=== PATIENT | male | born 1935 | race Caucasian/White ===

== ENCOUNTER 2020-12-02 06:57 | Outpatient (CLI) | payer MEDICARE, BC, SELFPAY ==
[2020-12-02 08:04] LABS: Alanine Aminotransferase 20 U/L (4-50); Albumin Level 4.1 g/dL (3.5-5.1); Alkaline Phosphatase 63 U/L (38-126); Anion Gap 6 mmol/L (8-16); Aspartate Amino Transferase 36 U/L (17-59); Bilirubin,Total 1.3 mg/dL (0.2-1.3); Blood Urea Nitrogen 19 mg/dL (9-20); Calcium 9.3 mg/dL (8.4-10.2); Carbon Dioxide 29 mmol/L (22-30); Chloride 107 mmol/L (98-107); Cholesterol 111 mg/dL (0-200); Estimated Glomerular Filt Rate 53; Glucose 117 mg/dL (75-110); HDL Direct 33 mg/dL; Potassium 4.1 mmol/L (3.4-5.0); Sodium 142 mmol/L (137-145); Triglycerides 91 mg/dL (<150)
[2020-12-02 08:16] LABS: LDL Cholesterol Direct 65 mg/dL
== END 2020-12-02 06:58 | disposition home or self-care (01) ==
PROVIDERS: PCP Emergency Medicine; Visit Provider Emergency Medicine
DX: E78.5 Hyperlipidemia, unspecified (principal)
CPT/HCPCS: 36415; 80053; 80061

== ENCOUNTER 2020-12-03 08:06 | Outpatient (CLI) | payer MEDICARE, BC, SELFPAY ==
--- NOTE | ~2020-12-03 | XR_ITS ---
XR lumbar spine 2-3V DATE: 12/03/2020 08:25 INDICATION: Low back pain. No injury. TECHNIQUE: AP, lateral, coned lateral lumbosacral views COMPARISON: None FINDINGS: There is mild dextroscoliosis of the lower thoracic and lumbar spine. Diffuse osteopenia. There is severe degenerative disc disease with very prominent spurring at L2-3 as well as severe dege nerative disc disease at L3-4. There is associated minimal retrolisthesis at L2-3. There is mild degenerative disc disease at L1-2 and moderate degenerative disc disease at L4-5 and L5 -S1. No fracture or bone destruction is evident. Included lower thoracic and lumbar pedicles are intact. The sacroiliac joints are normal. Calcifications overlie the lower pole of each kidney suggesting possible bilateral nephrolithiasis. Surgical clips, right upper quadrant, consistent with cholecystectomy. IMPRESSION: Diffuse osteopenia Mild thoracolumbar dextro scoliosis Multilevel degenerative disc disease of the lumbar spine Reviewed, dictated and finalized at location A.
== END 2020-12-03 08:07 | disposition home or self-care (01) ==
PROVIDERS: PCP Emergency Medicine; Visit Provider Emergency Medicine
DX: M41.9 Scoliosis, unspecified (principal); M47.817 Spondylosis without myelopathy or radiculopathy, lumbosacral region
CPT/HCPCS: 72100

== ENCOUNTER 2021-01-05 07:15 | Outpatient (CLI) | payer MEDICARE, BC, SELFPAY ==
[2021-01-05 08:01] LABS: Cholesterol 107 mg/dL (0-200); HDL Direct 39 mg/dL; Triglycerides 70 mg/dL (<150)
[2021-01-05 08:10] LABS: LDL Cholesterol Direct 51 mg/dL
[2021-01-08 10:43] LABS: Vitamin D 1,25 (OH)2 Total 63 pg/mL (18-72); Vitamin D2 1,25 (OH)2 <8 pg/mL; Vitamin D3 1,25 (OH)2 63 pg/mL
== END 2021-01-05 07:16 | disposition home or self-care (01) ==
PROVIDERS: PCP Emergency Medicine; Visit Provider Emergency Medicine
DX: M85.88 Other specified disorders of bone density and structure, other site (principal); E78.5 Hyperlipidemia, unspecified
CPT/HCPCS: 36415; 80061; 82652

== ENCOUNTER 2021-07-28 07:17 | Outpatient (CLI) | payer MEDICARE, BC, SELFPAY ==
--- NOTE | ~2021-07-28 | XR_ITS ---
EXAMINATION: XR hip LT 2V w AP pelvis DATE: 07/28/2021 07:39 INDICATION: Left hip pain TECHNIQUE: Anteroposterior view of the pelvis and anteroposterior and frog-leg lateral views of the l eft hip were obtained. COMPARISON: None. FINDINGS: Mild lower lumbar levocurvature with moderate to severe spondylosis. Alignment is otherwise normal. N o fracture or suspected avascular necrosis. 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 Mil d osteoarthritis at the right sacroiliac and bilateral hip joints. Several phleboliths in the pelvis. Surgical clips at the proximal left thigh. IMPRESSION: 1. Degenerative skeletal changes as detailed above including mild left hip osteoarthritis. No acute o sseous abnormality. Reviewed, dictated and finalized at location A. 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 Degenerative skeletal changes as detailed above including mild left hip oste oarthritis. No acute osseous abnormality.
== END 2021-07-28 07:18 | disposition home or self-care (01) ==
PROVIDERS: PCP Emergency Medicine; Visit Provider Emergency Medicine
DX: M47.816 Spondylosis without myelopathy or radiculopathy, lumbar region (principal); M47.818 Spondylosis without myelopathy or radiculopathy, sacral and sacrococcygeal region; M16.0 Bilateral primary osteoarthritis of hip
CPT/HCPCS: 73502

== ENCOUNTER 2022-01-28 02:10 | Day surgery (SDC) | payer MEDICARE, BC, SELFPAY ==
[2022-01-20 11:31] VITALS: BMI 29.5
--- NOTE | 2022-01-27 15:56 | WPDANESEPPF ---
Anes - Initial Pre Proc Eval Procedure: Operation Date: 01/28/22 13:30 Proposed Procedures p Esophagogastroduodenoscopy - Ortiz Haas MD Date/Time: 01/27/22 15:56 Surgeon: Ortiz Haas MD Pre Op Diagnosis: melena, GI bleed Patient Data Age: 86 Gender: M Height: 1.63 m Weight: 78 kg Allergies Allergy/AdvReac Type Severity Reaction Status Date / Time No Known Allergies Allergy Verified 01/28/22 12:20 Home Medications Medication Instructions Recorded Confirmed Type [id number] 200 mcg-vit K 15 1 tablet PO DAILY 06/27/19 01/28/22 History mcg-lycope 150 lpi-aawbwn-ehtv tablet (Ocuvite Eye Plus Multi) aspirin 81 mg tablet,delayed 81 mg PO .COMPLEX 09/24/19 01/28/22 History release metoprolol succinate 25 mg 25 mg PO HS 04/08/20 01/28/22 History tablet,extended release 24 hr tadalafil 20 mg tablet (Cialis) 20 mg PO DAILY PRN sexual activity 06/10/20 01/28/22 Rx #30 tabs cholecalciferol (vitamin D3) 125 125 mcg PO DAILY #90 caps 12/05/20 01/28/22 Rx mcg (5,000 unit) capsule pantoprazole 40 mg tablet,delayed 40 mg PO QHS 6 weeks #42 tabs 01/19/22 01/28/22 Rx release (Protonix) atorvastatin 10 mg tablet 10 mg PO HS 01/20/22 01/28/22 History doxazosin 2 mg tablet 2 mg PO HS 01/20/22 01/28/22 History fenofibric acid (choline) 135 mg 135 mg PO HS 01/20/22 01/28/22 History capsule,delayed release magnesium 250 mg tablet 250 mg PO DAILY 01/20/22 01/28/22 History tamsulosin 0.4 mg capsule 0.4 mg PO QPM 01/20/22 01/28/22 History Patient hx anesthesia problems: none Family hx anesthesia problems: none Results Review: All pre-operative results and documents have been reviewed as part of the pre-operative evaluation. [facility] Past Medical History Medical History Atherosclerotic heart disease of [place] coronary artery with angina pectoris Benign prostatic hyperplasia with nocturia Body mass index [BMI] 30.0-30.9, adult (09/15/17) Body mass index [BMI] 31.0-31.9, adult (04/28/17) Body mass index [BMI] 32.0-32.9, adult (08/21/15) Complete tear of right rotator cuff Enlarged prostate without lower urinary tract symptoms (luts) Gastro-esophageal reflux disease without esophagitis Hematuria Hyperlipidemia Hypertension Nocturia Right arm pain Right shoulder pain Sinusitis chronic, frontal Tear of biceps tendon Tear of right rotator cuff Vitamin D deficiency Surgical History Surgical History S/P CABG x 5 Family History Family History Mother Family history of malignant neoplasm Sibling Family history of congenital heart disease Family history of heart disease in male family member before age 55 Father Family history of chronic obstructive pulmonary disease Family history of emphysema Other Diabetes mellitus Family history of cardiovascular disease Hypertension Social History Social History Smoking status: Never smoker Alcohol intake: never Substance use: never Substance use type: does not use Living arrangements: with family Spiritual care concerns: No Anes - Eval Final PreProcedure Day of Procedure 01/27/22 15:56 Patient weight: overweight Heart: regular rate and rhythm Lungs: clear to auscultation Airway: Mallampati scale class II Neurological: alert and oriented Last oral intake: >/= 8 hours ASA classification: III Emergent: no Anesthetic plan: proceed Anesthesia type and monitoring: general GIVS and standard monitoring Results Review: All pre-operative results and documents have been reviewed as part of the pre-operative evaluation. Informed Consent: The patient's anesthetic plan and its attendant risks and benefits were discussed with the patient/family/POA. Questions were solicited and answers provided to t
[2022-01-28 12:21] VITALS: BP 168/87; PULSE 75; RESP 18; TEMP 36.4; O2SAT 99
[2022-01-28] MEDS: LACTATED RINGERS 1,000 ML 150 ML IV CONT (12:26)
--- NOTE | 2022-01-28 12:51 | PM.IMHP ---
H&P: HPI History of Present Illness Date/Time: 01/28/22 12:51 Chief Complaint: Black stools. Narrative: This is an 86-year-old white male patient who complains of black stools. He states this has occurred over the last several weeks but stools are somewhat less dark over the last 1 week. He does have vague left lower quadrant abdominal pain that improved after good bowel movement recently. Because of dark black stools a blood count was obtained found to be normal. Patient was empirically placed on pantoprazole. And referred for colonoscopy. Patient denies any stool testing no Hemoccult recently done. Patient denies taking any iron or Pepto-Bismol recently. He is concerned over possibility of bleeding. 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 Family history is noncontributory. Review of Systems Review of Systems: Review is systems noncontributory. [facility] Past Medical History Medical History Atherosclerotic heart disease of [place] coronary artery with angina pectoris Benign prostatic hyperplasia with nocturia Body mass index [BMI] 30.0-30.9, adult (09/15/17) Body mass index [BMI] 31.0-31.9, adult (04/28/17) Body mass index [BMI] 32.0-32.9, adult (08/21/15) Complete tear of right rotator cuff Enlarged prostate without lower urinary tract symptoms (luts) Gastro-esophageal reflux disease without esophagitis Hematuria Hyperlipidemia Hypertension Nocturia Right arm pain Right shoulder pain Sinusitis chronic, frontal Tear of biceps tendon Tear of right rotator cuff Vitamin D deficiency Surgical History Surgical History S/P CABG x 5 Family History Family History Mother Family history of malignant neoplasm Sibling Family history of congenital heart disease Family history of heart disease in male family member before age 55 Father Family history of chronic obstructive pulmonary disease Family history of emphysema Other Diabetes mellitus Family history of cardiovascular disease Hypertension Social History Social History Smoking status: Never smoker Alcohol intake: never Substance use: never Substance use type: does not use Living arrangements: with family Spiritual care concerns: No Meds Home Medications and Allergies Home Medications Medication Instructions Recorded Confirmed Type kyqtuqka-smn-TS 200 mcg-vit K 15 1 tablet PO DAILY 06/27/19 01/28/22 History mcg-lycope 150 jby-tauuxr-hqsl tablet (Ocuvite Eye Plus Multi) aspirin 81 mg tablet,delayed 81 mg PO .COMPLEX 09/24/19 01/28/22 History release metoprolol succinate 25 mg 25 mg PO HS 04/08/20 01/28/22 History tablet,extended release 24 hr tadalafil 20 mg tablet (Cialis) 20 mg PO DAILY PRN sexual activity 06/10/20 01/28/22 Rx #30 tabs cholecalciferol (vitamin D3) 125 125 mcg PO DAILY #90 caps 12/05/20 01/28/22 Rx mcg (5,000 unit) capsule pantoprazole 40 mg tablet,delayed 40 mg PO QHS 6 weeks #42 tabs 01/19/22 01/28/22 Rx release (Protonix) atorvastatin 10 mg tablet 10 mg PO HS 01/20/22 01/28/22 History doxazosin 2 mg tablet 2 mg PO HS 01/20/22 01/28/22 History fenofibric acid (choline) 135 mg 135 mg PO HS 01/20/22 01/28/22 History capsule,delayed release magnesium 250 mg tablet 250 mg PO DAILY 01/20/22 01/28/22 History tamsulosin 0.4 mg capsule 0.4 mg PO QPM 01/20/22 01/28/22 History Allergies Allergy/AdvReac Type Severity Reaction Status Date / Time No Known Allergies Allergy Verified 01/28/22 12:20 Vital Signs Vital Signs - 24 hr 01/28/22 12:21 Temperature 97.5 F L Pulse Rate 75 Respiratory Rate 18 Blood Pressure 168/87 H Pulse Oximetry 99 Oxygen Delivery Room Air
[2022-01-28 13:11] VITALS: BP 101/57; PULSE 60; RESP 25; O2SAT 95
[2022-01-28 13:21] VITALS: BP 100/61; PULSE 61; RESP 18; O2SAT 96
[2022-01-28 13:31] VITALS: BP 119/72; PULSE 62; RESP 17; O2SAT 99
== END 2022-01-28 13:45 | disposition home or self-care (01) ==
PROVIDERS: PCP Emergency Medicine; Visit Provider Internal Medicine Gastroenterology
PROC: 0DJ08ZZ Inspection of Upper Intestinal Tract, Via Natural or Artificial Opening Endoscopic (ICD-10-PCS; CPT 43235; principal; 2022-01-28 13:30)
DX: K92.1 Melena (principal); Q39.4 Esophageal web; K21.9 Gastro-esophageal reflux disease without esophagitis; I25.10 Atherosclerotic heart disease of native coronary artery without angina pectoris; N40.1 Benign prostatic hyperplasia with lower urinary tract symptoms; R35.1 Nocturia; I10 Essential (primary) hypertension; E78.5 Hyperlipidemia, unspecified; E55.9 Vitamin D deficiency, unspecified; Z79.82 Long term (current) use of aspirin; Z95.1 Presence of aortocoronary bypass graft; Z86.010 Personal history of colon polyps; Z85.048 Personal history of other malignant neoplasm of rectum, rectosigmoid junction, and anus
CPT/HCPCS: 43450; 43235; J2704; J7120

== ENCOUNTER 2022-05-10 17:59 | Inpatient (IN) | payer MEDICARE, BC, SELFPAY ==
--- NOTE | ~2022-05-10 | CT_ITS ---
EXAMINATION: CT abdomen pelvis wo con DATE: 05/10/2022 19:00 INDICATION: Nephrolithiasis presenting with inability to urinate TECHNIQUE: Computed tomography (CT) of the abdomen and pelvis was performed without intravenous contr ast. Automated exposure control and iterative reconstruction technique were employed. The dose-length product was 432.04 mGy-cm. COMPARISON: 05/26/2015 FINDINGS: Lung bases are clear. Heart size normal. Atherosclerotic coronary artery calcific lesion. No pericard ial or pleural effusion. Small sliding-type hiatal hernia. Cholecystectomy clips the gallbladder malou a. Multiple splenic calcifications consistent with old granulomatous disease. Liver and bilateral adr enal glands are normal. Dystrophic calcifications at the head of the pancreas consistent with sequela of chronic pancreatitis. A few small low-attenuation renal cysts. 1.8 cm stone at the right renal pe lvis and 8 mm stone in a lower pole calyx of the right kidney. No hydronephrosis. No ureteral stones. Prostatomegaly measuring 6.4 x 6.2 cm which impresses upon the base of the otherwise normal bladder. There are few phleboliths in the deep pelvis. Bowels including the appendix are normal. No free intr aperitoneal gas or fluid. No pathologically enlarged abdominal or pelvic lymphadenopathy.. There is c alcified atherosclerosis of the aorta and many of the other arteries. Mild S-shaped scoliosis and sev ere spondylosis in the lumbar and lower thoracic spine. IMPRESSION: 1. Nonobstructing right nephrolithiasis. 2. Marked prostatomegaly. Reviewed, dictated and finalized at location A.
[2022-05-10 18:35] VITALS: BP 174/96; PULSE 132; RESP 18; TEMP 37.7; O2SAT 97
[2022-05-10 19:01] LABS: Basophils Percent Auto 0.2 % (0.2-1.2); Eosinophils Absolute Auto 0.1 K/mm3 (0-0.3); Eosinophils Percent Auto 0.7 % (0-4.4); Hemoglobin 14.5 g/dL (14.0-18.0); Immature Granulocyte Absolute 0.03 K/mm3 (0.00-0.031); Immature Granulocyte Percent A 0.2 % (0-0.5); Immature Platelet Fraction Pct 5.2 % (0.9-11.2); Lymphocytes Absolute Auto 1.12 K/mm3 (0.9-3.2); Lymphocytes Percent Auto 9.3 % (18.3-44.2); Mean Corpuscular HGB Conc 33.7 g/dl (32-36); Mean Corpuscular Hemoglobin 30.9 pg (26-34); Mean Corpuscular Volume 91.7 fl (80-100); Mean Platelet Volume 11.1 fl (7.4-10.4); Monocytes Absolute Auto 0.5 K/mm3 (0.1-0.6); Monocytes Percent Auto 4.1 % (2.6-8.5); Neutrophils Absolute Auto 10.3 K/mm3 (1.3-6.7); Neutrophils Percent Auto 85.5 % (45.5-73.1); Platelet Count Result 121 k/mm3 (150-375); Red Blood Count 4.69 M/mm3 (4.6-6.20); Red Cell Distribution Width 12.3 % (11.5-14.5)
--- NOTE | 2022-05-10 19:08 | ECG_ITS ---
Measurements Intervals [place] Rate: 128 P: -22 DE: 141 QRS: -35 QRSD: 121 T: 65 QT: 328 QTc: 480 Interpretive Statements ATRIAL FLUTTER/TACHYCARDIA WITH RAPID VENTRICULAR RESPONSE LEFT AXIS DEVIATION INCOMPLETE LEFT BUNDLE BRANCH BLOCK POOR R WAVE PROGRESSION, ANTERIOR LEADS BORDERLINE ST-T WAVE ABNORMALITY- HIGH LATERAL LEADS BASELINE ARTIFACT- I, II, AVR, AVL ABNORMAL ECG NO PREVIOUS ECG AVAILABLE FOR COMPARISON Electronically Signed On 05-10-2022 19:53:56 CDT by Jean Mcdermott D.O.
[2022-05-10 19:12] LABS: Alanine Aminotransferase 26 U/L (6-50); Albumin Level 4.5 g/dL (3.5-5.1); Alkaline Phosphatase 71 U/L (38-126); Anion Gap 14 mmol/L (8-16); Aspartate Amino Transferase 43 U/L (17-59); Bilirubin,Total 1.1 mg/dL (0.2-1.3); Blood Urea Nitrogen 19 mg/dL (9-20); Calcium 9.4 mg/dL (8.4-10.2); Carbon Dioxide 24 mmol/L (22-30); Chloride 105 mmol/L (98-107); Estimated CRCL calculation 35 ml/min; Estimated Glomerular Filt Rate 52; Glucose 108 mg/dL (65-110); Potassium 3.8 mmol/L (3.4-5.0); Sodium 143 mmol/L (137-145)
[2022-05-10 19:13] LABS: Lactic Acid Reflex 2.1 mmol/L (0.7-2.0)
--- NOTE | 2022-05-10 19:17 | ED.GENADULT ---
HPI - General Adult General Chief complaint: Urogenital-Male Stated complaint: Blood In Urine Time Seen by Provider: 05/10/22 18:51 History of Present Illness HPI narrative: 87-year-old male with remote history of kidney stones presented emerged department for evaluation of lower back pain, tremors and blood in his urine. Patient states few days ago he was having some lower back pain. Patient states today at approximately noon he first noticed he had some blood in his urine. Patient denied any associated pain with this. Patient states that at about 630 this evening he had a another episode of hematuria and also began having some tremors. Patient denies any prior history of UT or CVA. Patient does have a remote history of kidney stones. Related Data Home Medications Medication Instructions Recorded Confirmed fiplfjww-sfo-MJ 200 mcg-vit K 15 1 tablet PO DAILY 06/27/19 05/10/22 mcg-lycope 150 bti-cmcuru-yffc tablet (Ocuvite Eye Plus Multi) aspirin 81 mg tablet,delayed 81 mg PO 1XD 09/24/19 05/10/22 release metoprolol succinate 25 mg 25 mg PO HS 04/08/20 05/10/22 tablet,extended release 24 hr atorvastatin 10 mg tablet 10 mg PO HS 01/20/22 05/10/22 doxazosin 2 mg tablet 2 mg PO HS 01/20/22 05/10/22 magnesium 250 mg tablet 250 mg PO DAILY 01/20/22 05/10/22 tamsulosin 0.4 mg capsule 0.4 mg PO QPM 01/20/22 05/10/22 Allergies Allergy/AdvReac Type Severity Reaction Status Date / Time No Known Allergies Allergy Verified 05/10/22 19:36 Review of Systems Review of Systems: CONSTITUTIONAL: Chills and tremor EYES: Denies visual changes, redness, or discharge. ENT: Denies rhinorrhea, congestion, sore throat, or otalgia. CARDIOVASCULAR: Denies chest pain, palpitations, or edema. RESPIRATORY: Denies cough or dyspnea. GASTROINTESTINAL: Denies abdominal pain, nausea, vomiting, or diarrhea. GENITOURINARY: Hematuria SKIN: Denies rash or itching. MUSCULOSKELETAL: Denies back pain, joint pain, or myalgia. NEUROLOGIC: Denies headache, numbness, or weakness. [facility] Past Medical History Medical History (Updated 05/11/22 @ 00:56 by Alma Cowan MD) Atherosclerotic heart disease of [place] coronary artery with angina pectoris Benign prostatic hyperplasia with nocturia Body mass index [BMI] 30.0-30.9, adult (09/15/17) Body mass index [BMI] 31.0-31.9, adult (04/28/17) Body mass index [BMI] 32.0-32.9, adult (08/21/15) Complete tear of right rotator cuff Enlarged prostate without lower urinary tract symptoms (luts) Gastro-esophageal reflux disease without esophagitis Hematuria Hyperlipidemia Hypertension Nocturia Right arm pain Right shoulder pain Sinusitis chronic, frontal Tear of biceps tendon Tear of right rotator cuff Vitamin D deficiency Surgical History Surgical History S/P CABG x 5 Family History Family History Mother Family history of malignant neoplasm Sibling Family history of congenital heart disease Family history of heart disease in male family member before age 55 Father Family history of chronic obstructive pulmonary disease Family history of emphysema Other Diabetes mellitus Family history of cardiovascular disease Hypertension Social History Social History Smoking status: Never smoker Alcohol intake: never Substance use: never Substance use type: does not use Spiritual care concerns: No Exam Narrative: APPEARANCE: Well appearing, no pain, no distress, well-nourished. HEAD: normocephalic, atraumatic. EYES: PERRLA/EOMI, conjunctivae clear. NOSE: Normal no drainage THROAT: Pharynx clear, no exudate. NECK: Supple. No adenopathy, no masses. RESPIRATORY: Airway patent, respirations nonlabored. Clear to auscultation bilaterally, no rales, rhonchi, wheezing. CARDIOVASCULAR: Regular rate and rhythm without murmu
[2022-05-10 19:31] LABS: Appearance Urine Slightly Cloudy (Clear); Bilirubin Urine Negative (Negative); Blood Urine 3+ (Negative); Color Urine Yellow (Yellow); Glucose Urine UA Negative (Negative); Ketones Urine Negative (Negative); Leukocyte Esterase Ur 2+ LEU/UL (Negative); Nitrate Urine Negative (Negative); Protein Urine Trace mg/dL (Negative); Urobilinogen Urine 0.2 mg/dL (<2.0)
[2022-05-10 19:41] LABS: Bacteria Urine Trace /hpf; Mucus Urine Rare /lpf; RBC Urine >75 /hpf (0-2); Squamous Epithelial Cell Urine Rare /hpf (Few); WBC Urine >75 /hpf
[2022-05-10 19:44] LABS: Add Urine Microscopic? YES
[2022-05-10 19:49] VITALS: BP 126/69; PULSE 126; RESP 22; TEMP 39.1; O2SAT 94
[2022-05-10] MEDS: SODIUM CHLORIDE 0.9% IV 1,000 ML 999 ML IV CONT (20:30)
[2022-05-10 20:34] VITALS: BP 105/60; PULSE 126; RESP 23; TEMP 38.9; O2SAT 94
[2022-05-10 20:45] LABS: INR 1.3; Prothrombin Time 15.6 Seconds (11.1-14.7)
[2022-05-10 20:46] VITALS: BP 96/62; RESP 20; O2SAT 93
[2022-05-10 20:51] LABS: Partial Thromboplastin Time < 20.0 SECONDS (22.3-36.8)
--- NOTE | 2022-05-10 21:00 | PM.IMHP ---
H&P: HPI History of Present Illness Date/Time: 05/10/22 21:00 Chief Complaint: dysuria Narrative: This is an 87-year-old male with past medical history significant for nephrolithiasis, benign prostatic hyperplasia, hypertension: Coronary artery disease. patient presented to the emergency room due to pain with urination frequency for the last 2 days or so also blood in the urine. Patient had chills but no fevers no night sweats has had good appetite denies any nausea, vomiting, diarrhea, no cough, no chest pain. Preliminary workup was significant for urinalysis 75+ RBCs and 75+ wbc's per high-power field. A CT of abdomen and pelvis was reported as: IMPRESSION: 1. Nonobstructing right nephrolithiasis. 2. Marked prostatomegaly. Review of Systems Review of Systems: Frequency, hematuria, pain with urination, chills. Constitutional: Constitutional: Reports chills, Denies fatigue, Denies fever(s), Denies malaise, Denies night sweats and Denies weakness Eyes: Eyes: Denies change in vision ENT: Denies dysphagia, Denies vertigo, Denies dizziness and Denies odynophagia Cardiovascular: Cardiovascular: Denies chest pain, Denies syncope, Denies irregular heart rhythm, Denies lightheadedness, Denies palpitations and Denies dyspnea on exertion Respiratory: Respiratory: Denies chest congestion, Denies cough, Denies excessive phlegm production, Denies pain on inspiration, Denies dyspnea and Denies dyspnea on exertion Gastrointestinal: Gastrointestinal: Denies abdominal pain, Denies dyspepsia, Denies heartburn, Denies diarrhea, Denies nausea and Denies vomiting Genitourinary: Genitourinary: Reports hematuria and Reports dysuria Musculoskeletal: Musculoskeletal: Denies myalgias and Denies muscle weakness Integumentary/Breasts: Skin/Breast: Denies rash Neurologic: Denies vertigo, Denies dizziness, Denies focal weakness and Denies Sensory deficit (Neuro) Psychiatric: Psychiatric: Reports no additional psychiatric complaints and Reports as per HPI Endocrine: Endocrine: Denies cold intolerance, Denies flushing, Denies heat intolerance, Denies polyphagia, Denies polydipsia and Denies palpitations Hematologic/Lymphatic: Hematologic/Lymphatic: Reports no additional hematologic/lymphatic complaints and Reports as per HPI Allergic/Immunologic: Allergic/Immunologic: Reports no additional allergic/immunologic complaints and Reports as per HPI [facility] Past Medical History Medical History (Updated 05/11/22 @ 00:56 by Alma Cowan MD) Atherosclerotic heart disease of [place] coronary artery with angina pectoris Benign prostatic hyperplasia with nocturia Body mass index [BMI] 30.0-30.9, adult (09/15/17) Body mass index [BMI] 31.0-31.9, adult (04/28/17) Body mass index [BMI] 32.0-32.9, adult (08/21/15) Complete tear of right rotator cuff Enlarged prostate without lower urinary tract symptoms (luts) Gastro-esophageal reflux disease without esophagitis Hematuria Hyperlipidemia Hypertension Nocturia Right arm pain Right shoulder pain Sinusitis chronic, frontal Tear of biceps tendon Tear of right rotator cuff Vitamin D deficiency Surgical History Surgical History S/P CABG x 5 Family History Family History Mother Family history of malignant neoplasm Sibling Family history of congenital heart disease Family history of heart disease in male family member before age 55 Father Family history of chronic obstructive pulmonary disease Family history of emphysema Other Diabetes mellitus Family history of cardiovascular disease Hypertension Social History Social History Smoking status: Never smoker Alcohol intake: never Substance use: never Substance use type: does not use Spiritual care concerns: No Meds Home Medications and Allergies Home Medic
[2022-05-10 21:01] VITALS: BP 115/64; PULSE 122; RESP 29; TEMP 38.2; O2SAT 98
[2022-05-10] MEDS: SODIUM CHLORIDE 0.9% IV 1,000 ML 125 ML IV CONT (21:31)
[2022-05-10 21:35] LABS: SARS-CoV-2 RNA PCR Negative
[2022-05-10 21:56] LABS: Reflex Lactic Acid Yes or No Add Lactic
[2022-05-10 22:32] LABS: Lactic Acid 1.5 mmol/L (0.7-2.0)
[2022-05-10 22:38] VITALS: BMI 29.8
--- NOTE | 2022-05-10 22:43 | ADMGEN ---
This patient, Trav Murrieta, was admitted to [address] [place] [address] Room 305-02. Patient/family oriented to hospital policies and general routines including ID bracelet, bed and alarms, visiting hours, pain management, procedures, bathroom and other care routines, personal items, smoking policy, room service/diet, and visiting hours. Information on how to activate the Rapid Response Team has been discussed. Patient/Family are encouraged to report perceived risks to care and to ask questions if they do not understand what they are told or what they should do.
[2022-05-11] VITALS (9 sets, daily range): BP systolic 122–132; BP diastolic 51–64; PULSE 78–101; RESP 16–19; TEMP 36.8–36.9; O2SAT 93–96
[2022-05-11] MEDS: SODIUM CHLORIDE 0.9% IV 1,000 ML 125 ML IV CONT (05:32)
[2022-05-11] MEDS: OPTI-GEN TAB 1 TABLET PO (08:28)
[2022-05-11] MEDS: ASPIRIN 81 MG ENTERIC TABLET PO (08:28)
[2022-05-11] MEDS: CHOLECALCIFEROL 1,000 UNITS TABLET 5000 UNITS PO (08:28)
[2022-05-11] MEDS: MAGNESIUM OXIDE 200 MG TABLET PO (08:29)
[2022-05-11] MEDS: MULTIVITAMINS THERAPEUTIC TAB (*BKC) 1 TABLET PO (08:29)
[2022-05-11] MEDS: FINASTERIDE 5 MG TABLET PO (08:30)
--- NOTE | 2022-05-11 10:44 | PM.IMPN ---
Progress Note: A&P Assessment and Plan (1) Acute UTI: Code(s): N39.0 - Urinary tract infection, site not specified Status: Acute Assessment and Plan: admit to regular medical floor started on Rocephin await cultures (2) BPH (benign prostatic hyperplasia): Code(s): N40.0 - Benign prostatic hyperplasia without lower urinary tract symptoms Status: Acute Assessment and Plan: continue tamsulosin will add Flomax. Ruvalcaba in currently (3) CAD (coronary artery disease): Code(s): I25.10 - Atherosclerotic heart disease of [place] coronary artery without angina pectoris Status: Acute Assessment and Plan: chest pain-free continue home meds (4) HTN (hypertension): Code(s): I10 - Essential (primary) hypertension Status: Acute Assessment and Plan: continue home meds continue to monitor (5) Gastro-esophageal reflux disease without esophagitis: Code(s): K21.9 - Gastro-esophageal reflux disease without esophagitis Status: Acute Assessment and Plan: PPI as needed Subjective Date/time seen: 05/11/22 10:44 No new complaints Exam Narrative: Patient is laying in bed Const: General: comfortable, no acute distress, well developed, alert and awake Nutritional Appearance: average body habitus Orientation/consciousness: patient oriented x3 HENMT: Head: normal to inspection, normocephalic and atraumatic Ears: hearing grossly normal bilaterally Face and sinus: normal facial exam Eyes: General: appearance normal, both eyes and all related structures Pupils: Equal, round and reactive pupils present EOM: EOMs intact bilaterally Neck: Neck: full ROM, no lymphadenopathy and no JVD Thyroid: thyroid normal Lymphatic: no lymphadenopathy noted Resp: Effort & Inspection: normal respiratory effort and able to speak in complete sentences Auscultation: clear to auscultation bilaterally Cardio: Jugular venous distension: no JVD Rate: regular rate Rhythm: regular rhythm Heart sounds: S1 normal heart sound present and S2 normal heart sound present : General: Yes deferred Skin: Rashes: no rashes Wounds: no wounds Neuro: General: patient oriented x3 and CN's II-XI intact bilaterally Cranial nerves: Yes CN's II-XII intact bilaterally and Yes Equal, round and reactive pupils present Cognition (Neuro): normal cognition Speech: normal speech Gait exam (Neuro): Normal gait present Motor exam (neuro): 5/5 motor strength present throughout Sensory Exam: No Sensory deficit (Neuro) Extrem: General: normal to inspection, full ROM, no joint enlargement and no pedal edema Objective Data Vital Signs Vital Signs: Vital Signs - 24 hr 05/10/22 18:35 05/10/22 19:49 05/10/22 20:34 Temperature 102.3 F H 102.1 F H Pulse Rate 132 H 126 H Respiratory Rate 18 22 H Blood Pressure 174/96 H 126/69 Pulse Oximetry 97 94 Oxygen Delivery 05/10/22 20:34 05/10/22 20:46 05/10/22 21:01 Temperature 102.1 F H 100.8 F H Pulse Rate 126 H 122 H Respiratory Rate 23 H 20 29 H Blood Pressure 105/60 96/62 L 115/64 Pulse Oximetry 94 93 98 Oxygen Delivery 05/10/22 18:35 05/11/22 00:00 05/11/22 04:00 Temperature 99.8 F H Pulse Rate 101 H 78 Respiratory Rate Blood Pressure Pulse Oximetry Oxygen Delivery 05/11/22 06:00 05/11/22 08:00 05/11/22 08:00 Temperature 98.2 F Pulse Rate 92 92 92 Respiratory Rate 16 16 Blood Pressure 132/64 Pulse Oximetry 96 96 Oxygen Delivery Room Air Intake/Output Intake/Output: Intake & Output 05/08/22 05/09/22 05/10/22 05/11/22 23:59 23:59 23:59 23:59 Intake Total 1150 1740 Output Total 500 Balance 1150 1240 Meds/Results Medications: Active Medications Generic Name Dose Route Start Last Admin Trade Name Sylvain PRN Reason Stop Dose Admin Aspirin 81 mg 05/11/22 09:00 05/11/22 08:28 Aspirin 81 Mg Enteric Tablet PO 81 mg DAILY NADIR Admini
[2022-05-11] MEDS: SODIUM CHLORIDE 0.9% IV 1,000 ML 50 ML IV CONT (14:17)
[2022-05-11] MEDS: TAMSULOSIN HCL 0.4 MG CAPSULE PO (17:33)
[2022-05-11] MEDS: DOXAZOSIN MESYLATE 2 MG TABLET PO (21:45)
[2022-05-11] MEDS: ATORVASTATIN 10 MG TABLET PO (21:45)
[2022-05-11] MEDS: cefTRIAXone 2 GM in SODIUM CHLORIDE 0.9% IV 100 ML 200 ML IVPB (21:46)
[2022-05-11] MEDS: METOPROLOL SUCCINATE EXT REL 25 MG TABCR PO (21:47)
[2022-05-12] VITALS (10 sets, daily range): BP systolic 121–125; BP diastolic 57–62; PULSE 73–86; RESP 18–22; TEMP 36.6–36.9; O2SAT 95–96
[2022-05-12] MEDS: ASPIRIN 81 MG ENTERIC TABLET PO (09:08)
[2022-05-12] MEDS: MAGNESIUM OXIDE 200 MG TABLET PO (09:08)
[2022-05-12] MEDS: MULTIVITAMINS THERAPEUTIC TAB (*BKC) 1 TABLET PO (09:08)
[2022-05-12] MEDS: FINASTERIDE 5 MG TABLET PO (09:09)
[2022-05-12] MEDS: CHOLECALCIFEROL 1,000 UNITS TABLET 5000 UNITS PO (09:09)
[2022-05-12] MEDS: OPTI-GEN TAB 1 TABLET PO (09:09)
[2022-05-12] MEDS: SODIUM CHLORIDE 0.9% IV 1,000 ML 50 ML IV CONT (13:00)
--- NOTE | 2022-05-12 14:45 | PM.DS ---
DS: Admitting Diagnosis Discharge Date 05/12/22 Admitting Diagnosis Dysuria DS: Discharge Diagnosis Discharge Diagnosis (1) Acute UTI: Code(s): N39.0 - Urinary tract infection, site not specified Status: Acute (2) BPH (benign prostatic hyperplasia): Code(s): N40.0 - Benign prostatic hyperplasia without lower urinary tract symptoms Status: Acute (3) CAD (coronary artery disease): Code(s): I25.10 - Atherosclerotic heart disease of [place] coronary artery without angina pectoris Status: Acute (4) HTN (hypertension): Code(s): I10 - Essential (primary) hypertension Status: Acute (5) Gastro-esophageal reflux disease without esophagitis: Code(s): K21.9 - Gastro-esophageal reflux disease without esophagitis Status: Acute DS: Summary Hospital Course Reason for hospitalization: 87yo male with CAD, BPH and HTN who presents with dysuria. Please see H&P for details. Hospital Course: Patient presents for evaluation to emergency room with complaints of back pain, tremors hematuria. COVID was negative. CT scan of the abdomen showing nonobstructing right nephrolithiasis and marked prostatomegaly. The bladder appeared normal. Urinalysis was abnormal with red and white cells and 2+ leukocyte esterase. Cultures were obtained and patient was started on Rocephin. White count was slightly elevated 12 K. Lactic acid was 2.1 but on repeat was 1.5. BUN 19 and creatinine 1.3 which is within his baseline. Despite the normal appearing bladder on imaging, there was concern that patient urine retention so a Ruvalcaba catheter was placed. It is documented that patient had a post-void residual of 350mL. He has a hx of urine retention and has been at home with Ruvalcaba. Patient has been up ambulating well. His urine culture was negative so abx stopped. BCx remain negative. He overall did well and was able to be discharged home on 05/12/22. Status at Discharge Cognitive/behavioral status at discharge: Stable Time Spent with Patient Time attestation: Total time spent providing and/or coordinating discharge services: 35 minutes Time spent: Greater than 30 minutes Exam Narrative: AF 97.8 125/62 75 22 95% ra Gen - NARD Chest - CTA bilaterally, nml RR CV - RRR S1/S2 with 2/6 systolic murmur Rt USB Abd - Soft, NT/ND, Positive BS -Ruvalcaba secured draining clear yellow urine Ext - No pedal edema Neuro - Alert and oriented x4. Nonfocal exam. Psych - Nml mood and affect Skin - Warm and dry DS: Data Data Completed and Pending Labs on day of discharge: Preliminary micro results at discharge 05/10/22 20:10 Blood Culture - Preliminary Blood 05/10/22 20:24 Blood Culture - Preliminary Blood Discharge Plan Discharge Attending physician on discharge: Alvin Boyce Discharging Clinician: Alvin Boyce Anticipated Discharge Date/Time: 05/12/22 14:48 Patient Disposition: Home, Self-Care Activity: as tolerated Diet: heart healthy Discharge Instructions: Please avoid large gathering, wear face coverings in public and practice social distance. Take precautions to avoid falls. Rise slowly from a lying or sitting position. Pause before standing or walking. Contact your doctor or call 911 and come to the Emergency Room if you have fever or other worrisome symptoms. Avoid NSAIDs (ibuprofen, naproxen, Aleve). Tylenol is safe to take. Follow-up with your doctor in 1-2 weeks. Please call for appointment. Follow-up with Urology in 1 week. Please call for an appointment. Thank you for using [facility] for your health care needs. Patient Instructions: Antibiotic Form Stand Alone Forms: General Discharge Information Follow-up/Referrals: Live Leroy MD [Primary Care Provider] - Call for Appointment Benja Dominguez MD [Physician] - Call for Appointment (Urine retention) Discharge Medications: New finasteride [Proscar
--- NOTE | 2022-05-12 16:00 | PC.NURSE ---
Ruvalcaba out and pt ambulated in hallwat per MD communication order. Pt ambulated length of hallway with SBA. Tolerated well. notified.
--- NOTE | 2022-05-12 17:17 | PC.NURSE ---
Provider notified or blood culture results.
[2022-05-12] MEDS: TAMSULOSIN HCL 0.4 MG CAPSULE PO (17:48)
--- NOTE | 2022-05-12 18:04 | PM.IMPN ---
Progress Note: A&P Assessment and Plan (1) Acute UTI: Code(s): N39.0 - Urinary tract infection, site not specified Status: Acute Assessment and Plan: UA noted but UCx negative. BCx (1of2) has returned positive for gram positive bacillus. Suspect this is a contaminant but will wait or final ID. (2) Bacteremia: Code(s): R78.81 - Bacteremia Status: Acute Assessment and Plan: As above. Await final result. (3) BPH (benign prostatic hyperplasia): Code(s): N40.0 - Benign prostatic hyperplasia without lower urinary tract symptoms Status: Acute Assessment and Plan: Patient has urine retention with 350mL post-void so Ruvalcaba placed. He was continued on his Flomax and Proscar added. Ruvalcaba trial in process. (4) CAD (coronary artery disease): Code(s): I25.10 - Atherosclerotic heart disease of [place] coronary artery without angina pectoris Status: Acute Assessment and Plan: Patient without chest pain. Continue Toprol, ASA and Lipitor. (5) HTN (hypertension): Code(s): I10 - Essential (primary) hypertension Status: Acute Assessment and Plan: Patient's blood pressure was reviewed on 05/12 Blood pressure remains well controlled. Will continue current medications. (6) Gastro-esophageal reflux disease without esophagitis: Code(s): K21.9 - Gastro-esophageal reflux disease without esophagitis Status: Acute Assessment and Plan: Add pepcid prn Subjective Date/time seen: 05/12/22 18:04 Interval history: 87yo male with BPH and HTN here for dysuria. Assuming care. Chart reviewed. Not out of bed much this morning but RN has since walked with patient around hallways. Not eating much. Walks unassisted. Lives with his . Ruvalcaba was removed and has voided only small volume. Exam Narrative: AF 97.8 125/62 75 22 95% ra Gen - NARD Chest - CTA bilaterally, nml RR CV - RRR S1/S2 with 2/6 systolic murmur Rt USB Abd - Soft, NT/ND, Positive BS -Ruvalcaba secured draining clear yellow urine Ext - No pedal edema Neuro - Alert and oriented x4. Nonfocal exam. Psych - Nml mood and affect Skin - Warm and dry Objective Data Vital Signs Vital Signs: Vital Signs - 24 hr 05/11/22 21:47 05/11/22 22:00 05/11/22 20:00 Temperature 98.4 F Pulse Rate 86 97 88 Respiratory Rate 19 Blood Pressure 130/51 L Pulse Oximetry 93 Oxygen Delivery 05/12/22 00:00 05/12/22 04:00 05/12/22 06:00 Temperature 98.4 F Pulse Rate 83 85 79 Respiratory Rate 22 H Blood Pressure 121/57 L Pulse Oximetry 95 Oxygen Delivery 05/12/22 08:00 05/12/22 08:00 05/12/22 14:00 Temperature 97.8 F Pulse Rate 79 79 75 Respiratory Rate 22 H 22 H Blood Pressure 125/62 Pulse Oximetry 95 95 Oxygen Delivery Room Air Intake/Output Intake/Output: Intake & Output 05/09/22 05/10/22 05/11/22 05/12/22 23:59 23:59 23:59 23:59 Intake Total 1150 3840 3180 Output Total 1350 1225 Balance 1150 2490 1955 Meds/Results Medications: Active Medications Generic Name Dose Route Start Last Admin Trade Name Freq PRN Reason Stop Dose Admin Aspirin 81 mg 05/11/22 09:00 05/12/22 09:08 Aspirin 81 Mg Enteric Tablet PO 81 mg DAILY NADIR Administration Atorvastatin Calcium 10 mg 05/11/22 21:00 05/11/22 21:45 Atorvastatin 10 Mg Tablet PO 10 mg HS NADIR Administration Doxazosin Mesylate 2 mg 05/11/22 21:00 05/11/22 21:45 Doxazosin Mesylate 2 Mg Tablet PO 2 mg HS NADIR Administration Finasteride 5 mg 05/11/22 09:00 05/12/22 09:09 Finasteride 5 Mg Tablet PO 5 mg QAM NADIR Administration Ceftriaxone Sodium 2 gm/ 100 mls @ 200 mls/hr 05/11/22 21:00 05/11/22 21:46 Sodium Chloride IVPB 200 mls/hr Q24H NADIR Administration Magnesium Oxide 200 mg 05/11/22 09:00 05/12/22 09:08 Magnesium Oxide 200 Mg Tablet PO 200 mg DAILY NADIR Administration [place]
[2022-05-12] MEDS: METOPROLOL SUCCINATE EXT REL 25 MG TABCR PO (20:02)
[2022-05-12] MEDS: ATORVASTATIN 10 MG TABLET PO (20:02)
[2022-05-12] MEDS: DOXAZOSIN MESYLATE 2 MG TABLET PO (20:02)
[2022-05-12] MEDS: cefTRIAXone 2 GM in SODIUM CHLORIDE 0.9% IV 100 ML 200 ML IVPB (20:02)
[2022-05-13] VITALS (7 sets, daily range): BP systolic 132–137; BP diastolic 53–58; PULSE 64–90; RESP 16–18; TEMP 36.2–36.6; O2SAT 92–98
[2022-05-13 05:57] LABS: Hematocrit 35.9 % (42.0-52.0); Hemoglobin 12.2 g/dL (14.0-18.0); Immature Platelet Fraction Pct 7.5 % (0.9-11.2); Mean Corpuscular Hemoglobin 30.6 pg (26-34); Mean Platelet Volume 11.9 fl (7.4-10.4); Platelet Count Result 77 k/mm3 (150-375); Red Blood Count 3.99 M/mm3 (4.6-6.20); Red Cell Distribution Width 12.3 % (11.5-14.5); White Blood Count 6.1 K/mm3 (4.5-10.0)
[2022-05-13 06:19] LABS: Chloride 108 mmol/L (98-107); Potassium 3.2 mmol/L (3.4-5.0); Sodium 139 mmol/L (137-145)
[2022-05-13 06:48] LABS: Anion Gap 7 mmol/L (8-16); Blood Urea Nitrogen 15 mg/dL (9-20); Calcium 8.2 mg/dL (8.4-10.2); Carbon Dioxide 24 mmol/L (22-30); Estimated CRCL calculation 45 ml/min; Estimated Glomerular Filt Rate > 60; Glucose 94 mg/dL (65-110)
[2022-05-13] MEDS: OPTI-GEN TAB 1 TABLET PO (08:49)
[2022-05-13] MEDS: CHOLECALCIFEROL 1,000 UNITS TABLET 5000 UNITS PO (08:49)
[2022-05-13] MEDS: ASPIRIN 81 MG ENTERIC TABLET PO (08:49)
[2022-05-13] MEDS: FINASTERIDE 5 MG TABLET PO (08:49)
[2022-05-13] MEDS: MAGNESIUM OXIDE 200 MG TABLET PO (08:49)
[2022-05-13] MEDS: FAMOTIDINE 20 MG TABLET PO (08:49)
[2022-05-13] MEDS: POTASSIUM CHLORIDE 20 MEQ TABLET 40 MEQ PO (08:49)
[2022-05-13] MEDS: MULTIVITAMINS THERAPEUTIC TAB (*BKC) 1 TABLET PO (08:50)
[2022-05-13 09:18] LABS: Folic Acid 8.5 ng/mL (2.76->20)
[2022-05-13] MEDS: TAMSULOSIN HCL 0.4 MG CAPSULE PO (17:38)
--- NOTE | 2022-05-13 18:07 | PM.IMPN ---
Progress Note: A&P Assessment and Plan (1) Sepsis: Code(s): A41.9 - Sepsis, unspecified organism Status: Acute Assessment and Plan: Patient presents with urinary symptoms, fever, tachycarida, lactic acidosis and leukocytosis consitent with sepsis present on admission. COVID negative. UA noted but UCx was negative. BCx (2of2) has returned positive for gram positive bacilli. Suspect this is a contaminant but patient with high fevers and sepsis symptoms. Improving with Rocephin so deann continue current treatment plan. Consider prostatitis possibly. Await final ID. Repeat BCx. (2) Bacteremia: Code(s): R78.81 - Bacteremia Status: Acute Assessment and Plan: As above. (3) Thrombocytopenia: Code(s): D69.6 - Thrombocytopenia, unspecified Status: Acute Assessment and Plan: Platelet count was low on admission 121 K. repeat platelet count today was 77 K. he is not on heparin or Lovenox. B12 level is low end of normal. Consider thrombocytopenia related to B12 deficiency. Could also be related to consumption from sepsis. Will check MMA. Will replace B12. (4) BPH (benign prostatic hyperplasia): Code(s): N40.0 - Benign prostatic hyperplasia without lower urinary tract symptoms Status: Acute Assessment and Plan: Patient had urine retention with 350mL post-void so Ruvalcaba placed. We continued his Flomax and Proscar added. Ruvalcaba trial was successfully. Continue to monitor for recurrence. Increase activity. (5) CAD (coronary artery disease): Code(s): I25.10 - Atherosclerotic heart disease of [place] coronary artery without angina pectoris Status: Acute Assessment and Plan: Patient without chest pain. Continue Toprol, ASA and Lipitor. (6) HTN (hypertension): Code(s): I10 - Essential (primary) hypertension Status: Acute Assessment and Plan: Patient's blood pressure was reviewed on 05/13 Blood pressure remains well controlled. Will continue current medications. (7) Gastro-esophageal reflux disease without esophagitis: Code(s): K21.9 - Gastro-esophageal reflux disease without esophagitis Status: Acute Assessment and Plan: Continue pepcid prn (8) Acute UTI: Code(s): N39.0 - Urinary tract infection, site not specified Status: Acute Assessment and Plan: UA noted but UCx negative. UTI ruled out Subjective Date/time seen: 05/13/22 18:07 Interval history: 87yo male with BPH and HTN here for dysuria. No complaints today. Feels ?great?. Ruvalcaba catheter has been removed he has been voiding well. Not out of bed much. No chest pain. He does occasionally feel lightheaded when he stands. He does see cardiology every 6 months and he is aware that he has a valve leak. Exam Narrative: AF ? 97.6 132/58 66 18 98% ra Gen - NARD lying semi-recumbent in bed Chest - few bibasilar crackles, nml RR CV - RRR S1/S2 with 2/6 systolic murmur Abd - Soft, NT/ND, Positive BS Ext - No pedal edema Psych - Nml mood and affect Skin - Warm and dry Objective Data Vital Signs Vital Signs: Vital Signs - 24 hr 05/12/22 20:02 05/12/22 20:00 05/13/22 00:00 Temperature Pulse Rate 80 75 90 Respiratory Rate Blood Pressure Pulse Oximetry Oxygen Delivery 05/12/22 22:00 05/13/22 04:00 05/13/22 06:00 Temperature 97.8 F 97.2 F L Pulse Rate 73 64 64 Respiratory Rate 18 17 Blood Pressure 121/57 L 137/55 L Pulse Oximetry 96 96 Oxygen Delivery 05/13/22 08:00 05/13/22 08:00 05/13/22 14:00 Temperature 97.6 F Pulse Rate 70 64 66 Respiratory Rate 17 18 Blood Pressure 132/58 L Pulse Oximetry 96 98 Oxygen Delivery Room Air Intake/Output Intake/Output: Intake & Output 05/10/22 05/11/22 05/12/22 05/13/22 23:59 23:59 23:59 23:59 Intake Total 1150 3940 3280 2280 Output Total 1350 1225 3100 Balance 1150 2590 2055 -820 Meds/Resu
[2022-05-13] MEDS: ATORVASTATIN 10 MG TABLET PO (20:00)
[2022-05-13] MEDS: METOPROLOL SUCCINATE EXT REL 25 MG TABCR PO (20:00)
[2022-05-13] MEDS: DOXAZOSIN MESYLATE 2 MG TABLET PO (20:01)
[2022-05-13] MEDS: cefTRIAXone 2 GM in SODIUM CHLORIDE 0.9% IV 100 ML 200 ML IVPB (20:05)
[2022-05-14 06:00] VITALS: BP 141/68; PULSE 62; RESP 16; TEMP 36.3; O2SAT 99
[2022-05-14 06:47] LABS: Basophils Percent Auto 0.3 % (0.2-1.2); Eosinophils Absolute Auto 0.2 K/mm3 (0-0.3); Eosinophils Percent Auto 3.4 % (0-4.4); Hematocrit 37.5 % (42.0-52.0); Hemoglobin 12.9 g/dL (14.0-18.0); Immature Granulocyte Absolute 0.02 K/mm3 (0.00-0.031); Immature Granulocyte Percent A 0.3 % (0-0.5); Immature Platelet Fraction Pct 8.6 % (0.9-11.2); Lymphocytes Absolute Auto 1.45 K/mm3 (0.9-3.2); Lymphocytes Percent Auto 22.3 % (18.3-44.2); Mean Corpuscular HGB Conc 34.4 g/dl (32-36); Mean Corpuscular Hemoglobin 30.8 pg (26-34); Mean Corpuscular Volume 89.5 fl (80-100); Mean Platelet Volume 11.6 fl (7.4-10.4); Monocytes Absolute Auto 0.7 K/mm3 (0.1-0.6); Monocytes Percent Auto 10.8 % (2.6-8.5); Neutrophils Absolute Auto 4.1 K/mm3 (1.3-6.7); Neutrophils Percent Auto 62.9 % (45.5-73.1); Platelet Count Result 94 k/mm3 (150-375); Red Blood Count 4.19 M/mm3 (4.6-6.20); White Blood Count 6.5 K/mm3 (4.5-10.0)
[2022-05-14 07:05] LABS: Albumin Level 3.4 g/dL (3.5-5.1); Anion Gap 10 mmol/L (8-16); Blood Urea Nitrogen 14 mg/dL (9-20); Calcium 8.5 mg/dL (8.4-10.2); Carbon Dioxide 26 mmol/L (22-30); Chloride 104 mmol/L (98-107); Estimated CRCL calculation 45 ml/min; Estimated Glomerular Filt Rate > 60; Glucose 96 mg/dL (65-110); Magnesium 1.9 mg/dL (1.6-2.3); Potassium 3.5 mmol/L (3.4-5.0); Sodium 140 mmol/L (137-145)
[2022-05-14] MEDS: CYANOCOBALAMIN INJ 1,000 MCG/ML VIAL 1000 MCG IM (08:12)
[2022-05-14] MEDS: POTASSIUM PHOS/SODIUM PHOS 250 MG TABLET PO (08:13)
[2022-05-14] MEDS: CHOLECALCIFEROL 1,000 UNITS TABLET 5000 UNITS PO (08:15)
[2022-05-14] MEDS: MULTIVITAMINS THERAPEUTIC TAB (*BKC) 1 TABLET PO (08:16)
[2022-05-14] MEDS: FINASTERIDE 5 MG TABLET PO (08:16)
[2022-05-14] MEDS: MAGNESIUM OXIDE 200 MG TABLET PO (08:16)
[2022-05-14] MEDS: ASPIRIN 81 MG ENTERIC TABLET PO (08:16)
[2022-05-14] MEDS: OPTI-GEN TAB 1 TABLET PO (08:17)
[2022-05-14] MEDS: CYANOCOBALAMIN 1,000 MCG TABLET 1000 MCG PO (08:17)
[2022-05-14 13:54] VITALS: BP 115/66; PULSE 75; RESP 18; TEMP 36.4; O2SAT 96
--- NOTE | 2022-05-14 16:02 | PM.IMPN ---
Progress Note: A&P Assessment and Plan (1) Sepsis: Code(s): A41.9 - Sepsis, unspecified organism Status: Acute Assessment and Plan: Patient presents with urinary symptoms and found to have fever, tachycardia, lactic acidosis and leukocytosis consistent with sepsis present on admission. COVID negative. UA noted but UCx was negative. BCx (2of2) has returned positive for gram positive bacilli. Suspect this is a contaminant but patient with high fevers and sepsis symptoms. Improving with Rocephin so will continue current treatment plan. Consider prostatitis possibly. Await final ID. Repeat BCx NGTD. (2) Bacteremia: Code(s): R78.81 - Bacteremia Status: Acute Assessment and Plan: As above. (3) Thrombocytopenia: Code(s): D69.6 - Thrombocytopenia, unspecified Status: Acute Assessment and Plan: Platelet count was low on admission 121 K. repeat platelet count dropped to 77K but better today at 94K. He is not on heparin or Lovenox. B12 level is low end of normal. Consider thrombocytopenia related to B12 deficiency. Could also be related to consumption from sepsis. MMA ordered. B12 replaced. (4) BPH (benign prostatic hyperplasia): Code(s): N40.0 - Benign prostatic hyperplasia without lower urinary tract symptoms Status: Acute Assessment and Plan: Patient had urine retention with 350mL post-void so Ruvalcaba placed. We continued his Flomax and Proscar was added. Ruvalcaba trial was successfully. Continue to monitor for recurrence. Increase activity. (5) CAD (coronary artery disease): Code(s): I25.10 - Atherosclerotic heart disease of [place] coronary artery without angina pectoris Status: Acute Assessment and Plan: Patient without chest pain. Continue Toprol, ASA and Lipitor. (6) HTN (hypertension): Code(s): I10 - Essential (primary) hypertension Status: Acute Assessment and Plan: Patient's blood pressure was reviewed on 05/14 Blood pressure remains well controlled. Will continue current medications. (7) Gastro-esophageal reflux disease without esophagitis: Code(s): K21.9 - Gastro-esophageal reflux disease without esophagitis Status: Acute Assessment and Plan: Continue pepcid prn (8) Acute UTI: Code(s): N39.0 - Urinary tract infection, site not specified Status: Acute Assessment and Plan: UA noted but UCx negative. UTI ruled out Subjective Date/time seen: 05/14/22 16:02 Interval history: 87yo male with BPH and HTN here for dysuria. Feels great. Voiding well. Walking to the bathroom. No complaints Exam Narrative: 97.5 115/66 75 18 96% ra Gen - NARD Chest - CTA bilaterally, nml RR CV - RRR S1/S2 with 2/6 systolic murmur Abd - Soft, NT/ND, Positive BS Ext - No pedal edema Psych - Nml mood and affect Skin - Warm and dry Objective Data Vital Signs Vital Signs: Vital Signs - 24 hr 05/13/22 20:00 05/13/22 21:47 05/14/22 06:00 Temperature 97.8 F 97.3 F L Pulse Rate 80 74 62 Respiratory Rate 16 16 Blood Pressure 132/53 L 141/68 H Pulse Oximetry 92 99 Oxygen Delivery 05/14/22 08:46 05/14/22 13:54 Temperature 97.5 F L Pulse Rate 75 Respiratory Rate 18 Blood Pressure 115/66 Pulse Oximetry 96 Oxygen Delivery Room Air Intake/Output Intake/Output: Intake & Output 05/11/22 05/12/22 05/13/22 05/14/22 23:59 23:59 23:59 23:59 Intake Total 3940 3280 2280 420 Output Total 1350 1225 3100 1250 Balance 2590 2055 -820 -830 Meds/Results Medications: Active Medications Generic Name Dose Route Start Last Admin Trade Name Freq PRN Reason Stop Dose Admin Aspirin 81 mg 05/11/22 09:00 05/14/22 08:16 Aspirin 81 Mg Enteric Tablet PO 81 mg DAILY NADIR Administration Atorvastatin Calcium 10 mg 05/11/22 21:00 05/13/22 20:00 Atorvastatin 10 Mg Tablet PO 10 mg HS NADIR Administration [place]
[2022-05-14] MEDS: TAMSULOSIN HCL 0.4 MG CAPSULE PO (17:08)
[2022-05-14 20:05] VITALS: PULSE 80
[2022-05-14] MEDS: ATORVASTATIN 10 MG TABLET PO (20:05)
[2022-05-14] MEDS: DOXAZOSIN MESYLATE 2 MG TABLET PO (20:05)
[2022-05-14] MEDS: METOPROLOL SUCCINATE EXT REL 25 MG TABCR PO (20:05)
[2022-05-14] MEDS: cefTRIAXone 2 GM in SODIUM CHLORIDE 0.9% IV 100 ML 200 ML IVPB (20:06)
[2022-05-14 20:17] VITALS: BP 138/83; PULSE 74; RESP 18; TEMP 36.3; O2SAT 98
[2022-05-15 04:48] VITALS: BP 147/66; PULSE 69; RESP 16; TEMP 36.4; O2SAT 96
[2022-05-15 06:22] LABS: Hematocrit 37.5 % (42.0-52.0); Hemoglobin 12.8 g/dL (14.0-18.0); Immature Platelet Fraction Pct 7.6 % (0.9-11.2); Mean Corpuscular HGB Conc 34.1 g/dl (32-36); Mean Corpuscular Hemoglobin 30.3 pg (26-34); Mean Corpuscular Volume 88.9 fl (80-100); Mean Platelet Volume 11.5 fl (7.4-10.4); Platelet Count Result 114 k/mm3 (150-375); Red Blood Count 4.22 M/mm3 (4.6-6.20); Red Cell Distribution Width 11.9 % (11.5-14.5); White Blood Count 6.1 K/mm3 (4.5-10.0)
[2022-05-15 06:29] LABS: Albumin Level 3.3 g/dL (3.5-5.1); Anion Gap 10 mmol/L (8-16); Blood Urea Nitrogen 15 mg/dL (9-20); Calcium 8.7 mg/dL (8.4-10.2); Carbon Dioxide 25 mmol/L (22-30); Chloride 105 mmol/L (98-107); Estimated CRCL calculation 50 ml/min; Estimated Glomerular Filt Rate > 60; Glucose 92 mg/dL (65-110); Phosphorus 2.8 mg/dL (2.5-4.5); Potassium 3.2 mmol/L (3.4-5.0); Sodium 140 mmol/L (137-145)
[2022-05-15] MEDS: OPTI-GEN TAB 1 TABLET PO (08:36)
[2022-05-15] MEDS: ASPIRIN 81 MG ENTERIC TABLET PO (08:36)
[2022-05-15] MEDS: MAGNESIUM OXIDE 200 MG TABLET PO (08:36)
[2022-05-15] MEDS: FAMOTIDINE 20 MG TABLET PO (08:37)
[2022-05-15] MEDS: CHOLECALCIFEROL 1,000 UNITS TABLET 5000 UNITS PO (08:37)
[2022-05-15] MEDS: CYANOCOBALAMIN 1,000 MCG TABLET 1000 MCG PO (08:37)
[2022-05-15] MEDS: MULTIVITAMINS THERAPEUTIC TAB (*BKC) 1 TABLET PO (08:38)
[2022-05-15] MEDS: FINASTERIDE 5 MG TABLET PO (08:38)
--- NOTE | 2022-05-15 09:12 | PC.NURSE ---
Talked with Isabelle at [employer] regarding +blood cultures from 05/10. She is working on ID of bacteria and will have a result later today. She states that they did not send it for sensitivity and if we would like that done to call her back and she will send the culture out today for that to be done. Message left on Dr. Boyce's cell phone regarding the above information. Waiting to hear back from Dr. Boyce.
--- NOTE | 2022-05-15 10:08 | PC.NURSE ---
Dr. Boyce returned call and would like cultures sent for sensitivities. Talked with Nazia at [facility]. She will send cultures for sensitivity and is hoping to have bacteria identified in about an hour.
--- NOTE | 2022-05-15 11:22 | PM.DS ---
DS: Admitting Diagnosis Discharge Date 05/15/22 Admitting Diagnosis Dysuria, sepsis DS: Discharge Diagnosis Discharge Diagnosis (1) Sepsis: Code(s): A41.9 - Sepsis, unspecified organism Status: Acute (2) Bacteremia: Code(s): R78.81 - Bacteremia Status: Acute (3) Thrombocytopenia: Code(s): D69.6 - Thrombocytopenia, unspecified Status: Acute (4) BPH (benign prostatic hyperplasia): Code(s): N40.0 - Benign prostatic hyperplasia without lower urinary tract symptoms Status: Acute (5) CAD (coronary artery disease): Code(s): I25.10 - Atherosclerotic heart disease of [place] coronary artery without angina pectoris Status: Acute (6) HTN (hypertension): Code(s): I10 - Essential (primary) hypertension Status: Acute (7) Gastro-esophageal reflux disease without esophagitis: Code(s): K21.9 - Gastro-esophageal reflux disease without esophagitis Status: Acute DS: Summary Hospital Course Reason for hospitalization: 87yo male with BPH and HTN here for dysuria and found to have sepsis. Please see H&P for details. Hospital Course: Patient presents with urinary symptoms with hematuria and right back pain. He was found to have fever, tachycardia, lactic acidosis and leukocytosis consistent with sepsis present on admission. COVID negative. UA noted but UCx was negative. His CT abdomen/pelvis showing nonobstructing right nephrolithiasis and prostatomegaly. BCx (2of2) has returned positive for Actinomyces neuii. He improved with Rocephin. Repeat BCx NGTD. Suspect he may have passed a kidney stone. No further hematuria. Right back pain resolved. For the etiology of the bacteremia, the patient does have gingivitis from a dental infection so suspected the Actinomyces related to oral source. Again, no concerning findings by the abdominal CT. His tooth pain improved on abx. Spoke with ID physician. He recommended 4-5 days of IV abx (patient has completed 5 doses of Rocephin) and then 9 days of oral PCN/Amox/Doxy. Opted to use Amoxicillin. Platelet count was low on admission 121K. Repeat platelet count dropped to 77K but better today at 114K. B12 level is low end of normal so consider thrombocytopenia related to B12 deficiency.?Could also be related to consumption from sepsis.? MMA ordered.? B12 was replaced. Patient had urine retention with 350mL post-void so Ruvalcaba placed. We continued his Flomax and Proscar was added. Ruvalcaba trial was successfully. He is voiding without issue. Patient has been up ambulating in the room and down the dominguez. He feels well and has no complaints. He is requesting discharge. Patient overall did well and was able to be discharged home on 05/15/22 Status at Discharge Cognitive/behavioral status at discharge: Stable Time Spent with Patient Time attestation: Total time spent providing and/or coordinating discharge services: 38 minutes Time spent: Greater than 30 minutes Exam Narrative: AF 97.6 147/66 69 16 96% ra Gen - NARD HEENT - missing left upper anterior tooth with adjacent caries with mild gingivitis Chest - CTA bilaterally, nml RR CV - RRR S1/S2 with 2/6 systolic murmur Abd - Soft, NT/ND, Positive BS Ext - No pedal edema Psych - Nml mood and affect Skin - Warm and dry DS: Data Data Completed and Pending Labs on day of discharge: Labs from last 24 hours 05/15/22 05/15/22 05:42 05:42 WBC 6.1 RBC 4.22 L Hgb 12.8 L Hct 37.5 L MCV 88.9 MCH 30.3 MCHC 34.1 RDW 11.9 Plt Count 114 L MPV 11.5 H % Immature Plt Fraction 7.6 Sodium 140 Potassium 3.2 L Chloride 105 Carbon Dioxide 25 Anion Gap 10 BUN 15 Creatinine 0.90 Estim Creat Clear Calc 50 Estimated GFR > 60 Glucose 92 Calcium 8.7 Phosphorus 2.8 Albumin 3.3 L Preliminary micro results at discharge 05/10/22 20:24 Blood Culture - Preliminary Blood Actinomyces neuii 05/13/22 08:08 Blood Cu
[2022-05-15 11:33] VITALS: O2SAT 96
[2022-05-15] MEDS: POTASSIUM CHLORIDE 20 MEQ TABLET PO (12:40)
[2022-05-18 10:21] LABS: Methylmalonic Acid 178 nmol/L (87-318)
--- NOTE | 2022-05-20 12:35 | PC.NURSE ---
MMa- 178. Blood cx are negative. Dr. Carli harris.
== END 2022-05-15 14:20 | disposition home or self-care (01) | DRG 872 ==
LOC: ANHED 19:36 → ANH3MEDSUR 21:44
PROVIDERS: Emergency Medicine; Admitting Provider Internal Medicine; Emergency Provider Emergency Medicine; PCP Emergency Medicine; Visit Provider Internal Medicine
DX: A42.7 Actinomycotic sepsis (principal); N20.0 Calculus of kidney; R30.0 Dysuria; N40.1 Benign prostatic hyperplasia with lower urinary tract symptoms; R31.9 Hematuria, unspecified; R33.8 Other retention of urine; K05.10 Chronic gingivitis, plaque induced; Z20.822 Contact with and (suspected) exposure to COVID-19; D69.6 Thrombocytopenia, unspecified; E55.9 Vitamin D deficiency, unspecified; E53.8 Deficiency of other specified B group vitamins; E78.5 Hyperlipidemia, unspecified; I10 Essential (primary) hypertension; I25.10 Atherosclerotic heart disease of native coronary artery without angina pectoris; K21.9 Gastro-esophageal reflux disease without esophagitis; Z79.82 Long term (current) use of aspirin; Z95.1 Presence of aortocoronary bypass graft; Z87.442 Personal history of urinary calculi
CPT/HCPCS: 36415; 51702; 74176; 80048; 80053; 80069; 81001; 82607; 82746; 83605; 83735; 83921; 85025; 85027; 85055; 85610; 85730; 87040; 87077; 87086; 93005; 96365; 96366; 96375; 97161; 99285; A9270; C9803; G0378; J0131; J0696; J3420; J7030; U0003; U0005

== ENCOUNTER 2022-08-11 13:50 | Outpatient (CLI) | payer MEDICARE, BC, SELFPAY ==
--- NOTE | ~2022-08-11 | MR_ITS ---
EXAMINATION: MR brain/brain stem wo con DATE: 08/11/2022 14:38 INDICATION: Parkinsonism TECHNIQUE: Magnetic resonance imaging (MRI) of the brain and brainstem was performed without intraven ous contrast. Sequences included sagittal and axial T1-weighted SE, axial diffusion-weighted FS SE, a xial T2*-weighted GRE, axial 3D SWAN, axial T2-weighted FLAIR, and axial T2-weighted FSE. Apparent di ffusion coefficient (ADC) maps were created. COMPARISON: None. FINDINGS: Small region of encephalomalacia in the periventricular left frontal lobe along the anterior horn of the left lateral ventricle consistent with chronic infarct. There are no areas of restricted diffusio n to suggest acute infarction. No abnormal intracranial mass lesion. There are a few scattered tiny f oci of susceptibility artifact at the bilateral cerebral hemispheres and in the left cerebellar hemis phere consistent with hemosiderin related to chronic microhemorrhage most typically related to hypert ension but which could also be seen with amyloid angiopathy. There are scattered areas of nonspecific increased T2-weighted signal intensity in the cerebral white matter, predominantly involving the batsheva p and periventricular white matter which is within normal limits for age and likely sequela of chroni c small vessel ischemic disease. There are no intraparenchymal signal abnormalities seen on the other pulse sequences. Symmetric prominence of the sulci consistent with mild age-appropriate diffuse cere bral volume loss. The ventricles are symmetric and normal in size. There are no abnormal extra-axial fluid collections. Flow voids are seen in the cerebral arteries on the T2-weighted sequences consiste nt with their expected patency. Mild mucosal thickening the bilateral ethmoid sinuses. Changes of gabby ateral intraocular lens replacement. Visualized orbits and soft tissues are unremarkable. IMPRESSION: 1. 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 2. No acute intracranial process. 3. A few scattered tiny foci of susceptibility artifact consistent with chronic microhemorrhage most likely related to hypertension although differential includes amyloid angiopathy. 4. Moderate scattered periventricular predominant white matter T2 hyperintensity consistent with interpreter emanuel small vessel ischemic disease. Reviewed, dictated and finalized at location A. [facility] TEACHER IMPRESSION: 1. 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 2. No acute intracranial process. 3. A few scattered tiny foci of susceptibility artifact consistent with chronic microhemorrhage most likely related to hypertension although differential incl udes amyloid angiopathy. 4. Moderate scattered periventricular predominant white matter T2 hyperintensit y consistent with chronic small vessel ischemic disease.
== END 2022-08-11 13:51 | disposition home or self-care (01) ==
PROVIDERS: PCP Emergency Medicine; Visit Provider Student in an Organized Health Care Education/Training Program
DX: R25.1 Tremor, unspecified (principal); I25.2 Old myocardial infarction
CPT/HCPCS: 70551

== ENCOUNTER 2022-08-25 08:22 | Outpatient (CLI) | payer MEDICARE, BC, SELFPAY ==
[2022-08-25 09:19] LABS: Alanine Aminotransferase 7 U/L (6-50); Albumin Level 4.2 g/dL (3.5-5.1); Alkaline Phosphatase 59 U/L (38-126); Anion Gap 6 mmol/L (8-16); Aspartate Amino Transferase 26 U/L (17-59); Bilirubin,Total 1.3 mg/dL (0.2-1.3); Blood Urea Nitrogen 20 mg/dL (9-20); Calcium 9.3 mg/dL (8.4-10.2); Carbon Dioxide 29 mmol/L (22-30); Chloride 103 mmol/L (98-107); Cholesterol 121 mg/dL (0-200); Estimated Glomerular Filt Rate 58; Glucose 116 mg/dL (65-110); HDL Direct 34 mg/dL; Potassium 3.5 mmol/L (3.4-5.0); Sodium 138 mmol/L (137-145); Triglycerides 87 mg/dL (<150)
[2022-08-25 09:30] LABS: LDL Cholesterol Direct 64 mg/dL
== END 2022-08-25 08:23 | disposition home or self-care (01) ==
PROVIDERS: PCP Emergency Medicine; Visit Provider Emergency Medicine
DX: E11.9 Type 2 diabetes mellitus without complications (principal)
CPT/HCPCS: 36415; 80053; 80061

== ENCOUNTER → 2022-12-01 17:07 | Outpatient (CLI) | payer MEDICARE, BC, SELFPAY ==
--- NOTE | ~2022-12-01 | MR_ITS ---
MRI of the lumbar spine Clinical History: Back pain Technique: Axial T2-weighted images, and sagittal T1-weighted, T2-weighted, and T2 fat-sat images wer e acquired. Findings: There is no acute fracture the lumbar spine. 5 mm retrolisthesis of L2 over L3 present. 2 m m retrolisthesis of L3 over L4 present. No suspicious bone marrow signal abnormality seen. At L1-L2, there is minimal disc bulge and mild facet joint hypertrophy. No spinal canal stenosis. The re is mild left neural foraminal narrowing. Right neural foramen preserved. At L2-L3, there is severe degenerative disc narrowing. There is mild disc bulge with moderate facet j oint arthropathy. There is probable left lateral recess stenosis and severe left neural foraminal manfred rowing. There is moderate to severe right neural foraminal narrowing. No central canal stenosis. At L3-L4, there is severe degenerative disc narrowing. There is minimal disc bulge with moderate face t joint hypertrophy. There is probable lateral recess stenosis bilaterally. There is severe right ami ral foraminal narrowing and moderate to severe left neural foraminal narrowing. At L4-L5, there is disc bulge and advanced facet arthropathy bilaterally. There is severe right neura l foraminal narrowing and moderate to severe left neural foraminal narrowing. At L5-S1, there is diffuse disc bulge and advanced facet arthropathy. No central canal stenosis. Ther e is severe bilateral neural foraminal narrowing. Paravertebral soft tissues are unremarkable. Impression: Moderate degenerative spondylosis, as detailed above. There is multilevel neural foraminal narrowing, with extensive facet arthropathy and there is advanced degenerative disc narrowing. 5 mm retrolisthesis of L2 over L3. 2 mm retrolisthesis of L3 over L4. Reviewed, dictated and finalized at location M. Impression: Moderate degenerative spondylosis, as detailed above. There is multilevel neura l foraminal narrowing, with extensive facet arthropathy and there is advanced d egenerative disc narrowing. 5 mm retrolisthesis of L2 over L3. 2 mm retrolisthesis of L3 over L4.
== END ==
PROVIDERS: PCP Emergency Medicine; Visit Provider Nurse Practitioner Family
DX: M47.816 Spondylosis without myelopathy or radiculopathy, lumbar region (principal)
CPT/HCPCS: 72148

== ENCOUNTER 2022-12-27 10:05 | Outpatient (CLI) | payer MEDICARE, BC, SELFPAY ==
[2022-12-27 11:02] LABS: Alanine Aminotransferase 15 U/L (6-50); Albumin Level 4.6 g/dL (3.5-5.1); Alkaline Phosphatase 61 U/L (38-126); Anion Gap 8 mmol/L (8-16); Aspartate Amino Transferase 30 U/L (17-59); Bilirubin,Total 1.5 mg/dL (0.2-1.3); Blood Urea Nitrogen 28 mg/dL (9-20); Calcium 9.8 mg/dL (8.4-10.2); Carbon Dioxide 30 mmol/L (22-30); Chloride 100 mmol/L (98-107); Cholesterol 142 mg/dL (0-200); Estimated Glomerular Filt Rate > 60; Glucose 106 mg/dL (65-110); HDL Direct 46 mg/dL; Potassium 4.4 mmol/L (3.4-5.0); Sodium 138 mmol/L (137-145); Triglycerides 74 mg/dL (<150)
[2022-12-27 11:13] LABS: LDL Cholesterol Direct 79 mg/dL
[2022-12-31 14:26] LABS: Vitamin D 1,25 (OH)2 Total 77 pg/mL (18-72); Vitamin D2 1,25 (OH)2 <8 pg/mL; Vitamin D3 1,25 (OH)2 77 pg/mL
== END 2022-12-27 10:06 | disposition home or self-care (01) ==
LOC: ANHLAB 10:06
PROVIDERS: PCP Emergency Medicine; Visit Provider Emergency Medicine
DX: E55.9 Vitamin D deficiency, unspecified (principal); E78.5 Hyperlipidemia, unspecified
CPT/HCPCS: 36415; 80053; 80061; 82652

== ENCOUNTER 2023-02-13 07:37 | Emergency (ER) | payer MEDICARE, BC, SELFPAY ==
[2023-02-13] VITALS (8 sets, daily range): BP systolic 126–145; BP diastolic 72–75; PULSE 83–84; RESP 16; TEMP 36.3; O2SAT 93–98
--- NOTE | ~2023-02-13 | XR_ITS ---
EXAMINATION: XR lumbar spine min 4V DATE: 02/13/2023 09:34 INDICATION: Low back pain TECHNIQUE: Anteroposterior, lateral, and bilateral oblique views of the lumbar spine, and cone-down l ateral view of the lumbosacral junction were obtained. COMPARISON: MRI, 12/01/2022 FINDINGS: There are 5 mm of stable retrolisthesis of L2 on L3. The vertebral body heights are maintai roselyn. There is severe loss of intervertebral disc space height at L2-3 and L3-4 and moderate loss of d isc space height at L5-S1. The vertebral body heights are maintained. There is no fracture. There is severe facet joint osteoarthritis of the lower lumbar spine. Small degenerative osteophytes project f rom the anterior endplates of multiple vertebral bodies. Right nephrolithiasis is noted including a 2 .3 cm and previously demonstrated in the right renal pelvis. IMPRESSION: 1. Moderate to severe lumbar spondylosis without acute findings or significant interval change. 2. Right nephrolithiasis. Reviewed, dictated and finalized at location A.
--- NOTE | ~2023-02-13 | XR_ITS ---
EXAMINATION: XR hip RT 2V w AP pelvis INDICATION: Worsening chronic right hip pain TECHNIQUE: AP view of the pelvis and two views of the right hip are obtained. COMPARISON: CT, 05/10/2022 FINDINGS: Bone alignment is normal. There is no fracture. There is mild osteoarthritis of the hips. S urgical clips are noted proximally in the medial aspect of the left leg. There are phleboliths of the pelvis. Right nephrolithiasis is noted. A 2.3 cm right kidney stone was previously demonstrated to b e in the right renal pelvis on the comparison CT. IMPRESSION: 1. No acute osseous abnormality. 2. Right nephrolithiasis. Reviewed, dictated and finalized at location A.
--- NOTE | 2023-02-13 09:52 | ED.EXTPRO ---
HPI - Extremity Problem General Chief complaint: Extremity Problem,Nontraumatic Stated complaint: PAIN TO RIGHT LEG Time Seen by Provider: 02/13/23 08:56 Source: patient Mode of arrival: ambulatory Limitations: no limitations History of Present Illness HPI Narrative: Patient is an 87-year-old male who presents to the ED with report of right hip/low back pain. Patient reports he has had ongoing issues with bilateral hip and low back pain for the past few months. He received cortisone injections via pain management which provided relief of left-sided pain. He did have brief relief of his right hip/low back pain, but it has since returned. He attempted a second cortisone shot, but still denies relief. Pain has become worse over the last couple of days. Pain radiates down his posterior leg to his ankle. He is unable to receive another cortisone injection until March. He was advised to come to the ED for worsening pain. Patient denies any recent injury or fall. He has been taking Tylenol and Aleve at home without much relief. He has not prescribed any pain medication through pain management. Pain significantly worse with ambulation, he is able to find comfortable positions with laying flat. Denies any numbness, tingling, saddle anesthesia, bowel or bladder incontinence, abdominal pain, nausea, vomiting, fevers. Related Data Home Medications Medication Instructions Recorded Confirmed aspirin 81 mg tablet,delayed 81 mg PO 1XD 09/24/19 05/10/22 release metoprolol succinate 25 mg 25 mg PO HS 04/08/20 05/10/22 tablet,extended release 24 hr magnesium 250 mg tablet 250 mg PO DAILY 01/20/22 05/10/22 [id number]-DR 200 mcg-vit K 15 1 tablet PO DAILY 08/31/22 mcg-lycope 150 xhx-fbwwfc-rlbm tablet (Ocuvite Eye Plus Multi) Allergies Allergy/AdvReac Type Severity Reaction Status Date / Time No Known Allergies Allergy Verified 02/13/23 08:16 Review of Systems Review of Systems: CONSTITUTIONAL: Denies fever, chills, or sweats. CARDIOVASCULAR: Denies chest pain. RESPIRATORY: Denies dyspnea. GASTROINTESTINAL: Denies abdominal pain, nausea, vomiting. GENITOURINARY: Denies dysuria or hematuria. MUSCULOSKELETAL: See HPI. NEUROLOGIC: See HPI. All systems reviewed & are unremarkable except as noted in HPI and below PMFSH Past Medical History Medical History Atherosclerotic heart disease of [place] coronary artery with angina pectoris Benign prostatic hyperplasia with nocturia Body mass index [BMI] 30.0-30.9, adult (09/15/17) Body mass index [BMI] 31.0-31.9, adult (04/28/17) Body mass index [BMI] 32.0-32.9, adult (08/21/15) Complete tear of right rotator cuff Enlarged prostate without lower urinary tract symptoms (luts) Gastro-esophageal reflux disease without esophagitis Hematuria Hyperlipidemia Hypertension Nocturia Right arm pain Right shoulder pain Sinusitis chronic, frontal Tear of biceps tendon Tear of right rotator cuff Vitamin D deficiency Surgical History Surgical History S/P CABG x 5 Family History Family History Mother Family history of malignant neoplasm Sibling Family history of congenital heart disease Family history of heart disease in male family member before age 55 Father Family history of chronic obstructive pulmonary disease Family history of emphysema Other Diabetes mellitus Family history of cardiovascular disease Hypertension Social History Social History Smoking status: Never smoker Alcohol intake: never Substance use: never Substance use type: does not use Lack of Transportation: No Lack of Food: Never True Current Housing: I Have Housing Concerned About Future Housing: No Difficulty Paying Gas/Electric Bills: No
[2023-02-13] MEDS: traMADol HCL (*CRX) 25 MG TABLET PO (09:58)
[2023-02-13] MEDS: ACETAMINOPHEN 325 MG TABLET 650 MG PO (09:58)
== END 2023-02-13 11:33 | disposition home or self-care (01) ==
PROVIDERS: Emergency Provider Physician Assistant; PCP Emergency Medicine
DX: M54.16 Radiculopathy, lumbar region (principal); M54.41 Lumbago with sciatica, right side; I10 Essential (primary) hypertension; K52.9 Noninfective gastroenteritis and colitis, unspecified
CPT/HCPCS: 72110; 73502; 99284; A9270

== ENCOUNTER 2023-03-01 18:43 | Emergency (ER) | payer MEDICARE, BC, SELFPAY ==
--- NOTE | ~2023-03-01 | US_ITS ---
EXAMINATION: US venous doppler [facility] DATE: 03/01/2023 22:43 INDICATION: pain swelling eval for dvt . TECHNIQUE: Grayscale images without and with compression and Doppler images of the bilateral lower ex tremity veins were obtained. COMPARISON: None FINDINGS: The right common femoral vein, profunda (deep) femoral vein, femoral vein, popliteal vein, peroneal v ein, posterior tibial veins, gastrocnemius vein, and greater saphenous vein are patent. The left greater saphenous vein is surgically absent. The left common femoral vein, profunda (deep) femoral vein, femoral vein, popliteal vein, peroneal vein, posterior tibial veins, and gastrocnemius vein are patent. IMPRESSION: Patent bilateral lower extremity veins. No evidence of deep venous thrombosis. Reviewed, dictated and finalized at location K.
--- NOTE | ~2023-03-01 | CT_ITS ---
EXAMINATION: CT lumbar spine wo con DATE: 03/01/2023 22:15 INDICATION: back pain, right side sciatica . TECHNIQUE: Computed tomography (CT) of the lumbar spine was performed without intravenous contrast. A utomated exposure control and iterative reconstruction technique were employed. The dose-length produ ct was 821.08 mGy-cm. COMPARISON: X-ray L-spine 7-23. FINDINGS: Lumbar scoliosis. 5 nonrib-bearing lumbar-type vertebral bodies. Pedicles intact. 3 mm retr olisthesis at L2-3. Mild anterior wedge deformity at T12, possibly physiologic. Otherwise the vertebr al body heights are preserved. Multilevel severe disc space narrowing. Multilevel marginal osteophyto sis including large bridging osteophyte at L2-3. Vacuum phenomenon at T12-L1, L2-3, L4-5, and L5-S1. Severe facet hypertrophy and sclerosis in the lower lumbar spine. No severe central canal stenosis. M ultilevel severe neural foraminal narrowing. 18 mm calcification in the right UPJ. Additional right renal calcifications in a somewhat staghorn co nfiguration. Atherosclerotic calcifications IMPRESSION: No acute fracture or traumatic malalignment in the lumbar spine. Lumbar scoliosis. Grade 1 retrolisthesis at L2-3. Multilevel severe degenerative disc disease, severe lower lumbar facet arthropathy, and multilevel severe neural foraminal narrowing. Right nephrolithiasis including an 18 mm stone in the UPJ. Reviewed, dictated and finalized at location K. IMPRESSION: No acute fracture or traumatic malalignment in the lumbar spine. Lumbar scoliosis. Grade 1 retrolisthesis at L2-3. Multilevel severe degenerativ e disc disease, severe lower lumbar facet arthropathy, and multilevel severe ne ural foraminal narrowing. Right nephrolithiasis including an 18 mm stone in the UPJ.
[2023-03-01 18:43] VITALS: BP 146/84; PULSE 92; RESP 16; TEMP 37; O2SAT 97
[2023-03-01 21:53] VITALS: BP 163/84; PULSE 81; RESP 14; O2SAT 95
[2023-03-01] MEDS: KETOROLAC 30 MG/ML VIAL (*BKC) 15 MG IV PUSH (22:43)
[2023-03-01 22:57] LABS: Basophils Absolute Auto 0.1 K/mm3 (0.0-0.1); Basophils Percent Auto 0.7 % (0.2-1.2); Eosinophils Absolute Auto 0.1 K/mm3 (0-0.3); Eosinophils Percent Auto 1.1 % (0-4.4); Hematocrit 43.8 % (42.0-52.0); Hemoglobin 14.9 g/dL (14.0-18.0); Immature Granulocyte Absolute 0.12 K/mm3 (0.00-0.031); Immature Granulocyte Percent A 1.6 % (0-0.5); Immature Platelet Fraction Pct 4.2 % (0.9-11.2); Lymphocytes Absolute Auto 1.33 K/mm3 (0.9-3.2); Lymphocytes Percent Auto 17.9 % (18.3-44.2); Mean Corpuscular Hemoglobin 30.3 pg (26-34); Mean Corpuscular Volume 89.2 fl (80-100); Mean Platelet Volume 10.4 fl (7.4-10.4); Monocytes Absolute Auto 0.7 K/mm3 (0.1-0.6); Monocytes Percent Auto 8.9 % (2.6-8.5); Neutrophils Absolute Auto 5.2 K/mm3 (1.3-6.7); Neutrophils Percent Auto 69.8 % (45.5-73.1); Platelet Count Result 129 k/mm3 (150-375); Red Blood Count 4.91 M/mm3 (4.6-6.20); Red Cell Distribution Width 12.3 % (11.5-14.5); White Blood Count 7.4 K/mm3 (4.5-10.0)
[2023-03-01 23:06] LABS: Alanine Aminotransferase 10 U/L (6-50); Albumin Level 4.1 g/dL (3.5-5.1); Alkaline Phosphatase 65 U/L (38-126); Anion Gap 4 mmol/L (8-16); Aspartate Amino Transferase 31 U/L (17-59); Bilirubin,Total 1.4 mg/dL (0.2-1.3); Blood Urea Nitrogen 17 mg/dL (9-20); Calcium 10.1 mg/dL (8.4-10.2); Carbon Dioxide 33 mmol/L (22-30); Chloride 104 mmol/L (98-107); Estimated CRCL calculation 41 ml/min; Estimated Glomerular Filt Rate > 60; Glucose 107 mg/dL (65-110); Potassium 3.2 mmol/L (3.4-5.0); Sodium 141 mmol/L (137-145)
[2023-03-02 00:28] VITALS: BP 178/94; PULSE 84; RESP 16; O2SAT 94
--- NOTE | 2023-03-02 00:47 | ED.GENADULT ---
HPI - General Adult General Chief complaint: Back Pain/Injury Stated complaint: back pain Time Seen by Provider: 03/01/23 21:39 History of Present Illness HPI narrative: Patient is a-year-old gentleman who presents emerged department chief complaint of right sciatic pain. Patient reports that he has been seen by both his primary doctor and his pain management doctor patient reports she had injections and was given a prescription for oxycodone and had a 3-day course of prednisone patient reports that his pain is worse and also reports he has had some swelling in his legs but he has been sitting in a recliner with his legs below the level of his heart. Patient denies bowel or bladder incontinence denies saddle anesthesia denies foot drop Related Data Home Medications Medication Instructions Recorded Confirmed aspirin 81 mg tablet,delayed 81 mg PO 1XD 09/24/19 05/10/22 release metoprolol succinate 25 mg 25 mg PO HS 04/08/20 05/10/22 tablet,extended release 24 hr magnesium 250 mg tablet 250 mg PO DAILY 01/20/22 05/10/22 [id number]-zyn-GY 200 mcg-vit K 15 1 tablet PO DAILY 08/31/22 mcg-lycope 150 bmf-jneajf-lyxb tablet (Ocuvite Eye Plus Multi) Allergies Allergy/AdvReac Type Severity Reaction Status Date / Time No Known Allergies Allergy Verified 02/21/23 11:09 Review of Systems Review of Systems: A 10 system review of systems was completed on the patient and is negative except for what is stated in the HPI. Nursing and ancillary documentation was reviewed. REPLACED BY [facility] Past Medical History Medical History Atherosclerotic heart disease of [place] coronary artery with angina pectoris Benign prostatic hyperplasia with nocturia Body mass index [BMI] 30.0-30.9, adult (09/15/17) Body mass index [BMI] 31.0-31.9, adult (04/28/17) Body mass index [BMI] 32.0-32.9, adult (08/21/15) Complete tear of right rotator cuff Enlarged prostate without lower urinary tract symptoms (luts) Gastro-esophageal reflux disease without esophagitis Hematuria Hyperlipidemia Hypertension Nocturia Right arm pain Right shoulder pain Sinusitis chronic, frontal Tear of biceps tendon Tear of right rotator cuff Vitamin D deficiency Surgical History Surgical History S/P CABG x 5 Family History Family History Mother Family history of malignant neoplasm Sibling Family history of congenital heart disease Family history of heart disease in male family member before age 55 Father Family history of chronic obstructive pulmonary disease Family history of emphysema Other Diabetes mellitus Family history of cardiovascular disease Hypertension Social History Social History Smoking status: Never smoker Alcohol intake: never Substance use: never Substance use type: does not use Current Housing: Decline to Answer Concerned About Future Housing: Decline to Answer Difficulty Paying Gas/Electric Bills: Decline to Answer Difficulty Paying for Meds: Decline to Answer Currently Unemployed: Decline to Answer Education: Decline to Answer Difficulty w/ Childcare or Family Care: Decline to Answer Living arrangements: with family Spiritual care concerns: No Exam Narrative: GENERAL: Well-appearing, well-nourished, and in no acute distress. HEAD: Normocephalic, atraumatic. EYES: PERRLA and EOMI. ENT: Nares clear, no rhinorrhea or epistaxis. Mucous membranes moist. NECK: Supple. CHEST: Clear to auscultation. No respiratory distress. HEART: Regular rate and rhythm. No murmur heard. Normal peripheral pulses. ABDOMEN: Soft, nontender, nondistended, normal active bowel sounds. EXTREMITIES: Normal range of motion. +1 edema. Tenderness to palpation of the right SI joint SKIN
--- NOTE | 2023-03-02 07:35 | PC.NURSE ---
Pt refused Morphine dose. Pt departed from unit before returning morphine dose. Morphine returned under floor stock with Nicolasa Moreno as witness. This RN spoke with pharmacy and was told to return this way.
== END 2023-03-02 01:21 | disposition home or self-care (01) ==
PROVIDERS: Emergency Provider Emergency Medicine; PCP Emergency Medicine
DX: M54.41 Lumbago with sciatica, right side (principal); R60.0 Localized edema; I25.119 Atherosclerotic heart disease of native coronary artery with unspecified angina pectoris; I10 Essential (primary) hypertension; N40.1 Benign prostatic hyperplasia with lower urinary tract symptoms; R35.1 Nocturia; E55.9 Vitamin D deficiency, unspecified; K21.9 Gastro-esophageal reflux disease without esophagitis; Z95.1 Presence of aortocoronary bypass graft; Z79.82 Long term (current) use of aspirin
CPT/HCPCS: 36415; 72131; 80053; 85025; 85055; 93970; 96374; 96375; 99284; J1100; J1885

== ENCOUNTER 2023-03-12 04:32 | Emergency (ER) | payer MEDICARE, BC, SELFPAY ==
[2023-03-12 04:48] VITALS: BP 174/86; PULSE 97; RESP 14; TEMP 36.5; O2SAT 98
[2023-03-12 04:49] LABS: Basophils Percent Auto 0.2 % (0.2-1.2); Eosinophils Absolute Auto 0.1 K/mm3 (0-0.3); Eosinophils Percent Auto 1.5 % (0-4.4); Hematocrit 44.5 % (42.0-52.0); Immature Granulocyte Absolute 0.16 K/mm3 (0.00-0.031); Immature Granulocyte Percent A 1.9 % (0-0.5); Immature Platelet Fraction Pct 5.5 % (0.9-11.2); Lymphocytes Absolute Auto 1.74 K/mm3 (0.9-3.2); Lymphocytes Percent Auto 20.6 % (18.3-44.2); Mean Corpuscular HGB Conc 33.7 g/dl (32-36); Mean Corpuscular Hemoglobin 30.1 pg (26-34); Mean Corpuscular Volume 89.4 fl (80-100); Mean Platelet Volume 10.5 fl (7.4-10.4); Monocytes Absolute Auto 0.8 K/mm3 (0.1-0.6); Neutrophils Absolute Auto 5.6 K/mm3 (1.3-6.7); Neutrophils Percent Auto 66.8 % (45.5-73.1); Platelet Count Result 105 k/mm3 (150-375); Red Blood Count 4.98 M/mm3 (4.6-6.20); Red Cell Distribution Width 12.7 % (11.5-14.5); White Blood Count 8.5 K/mm3 (4.5-10.0)
[2023-03-12 05:01] LABS: Alanine Aminotransferase 11 U/L (6-50); Albumin Level 3.9 g/dL (3.5-5.1); Alkaline Phosphatase 43 U/L (38-126); Anion Gap 3 mmol/L (8-16); Aspartate Amino Transferase 25 U/L (17-59); Bilirubin,Total 2.5 mg/dL (0.2-1.3); Blood Urea Nitrogen 23 mg/dL (9-20); Calcium 9.8 mg/dL (8.4-10.2); Carbon Dioxide 33 mmol/L (22-30); Chloride 100 mmol/L (98-107); Estimated CRCL calculation 31 ml/min; Estimated Glomerular Filt Rate 58; Glucose 110 mg/dL (65-110); Potassium 4.1 mmol/L (3.4-5.0); Sodium 136 mmol/L (137-145)
[2023-03-12 05:35] LABS: Appearance Urine Cloudy (Clear); Bacteria Urine 4+ /hpf; Bilirubin Urine Negative (Negative); Blood Urine 2+ (Negative); Color Urine Yellow (Yellow); Glucose Urine UA Negative (Negative); Ketones Urine Negative (Negative); Leukocyte Esterase Ur 3+ LEU/UL (Negative); Nitrate Urine Positive (Negative); Non Pathogenic Casts 0-2; Protein Urine 1+ mg/dL (Negative); RBC Urine 51-100 /hpf (0-2); Specific Grav Ur 1.014 (1.001-1.035); Squamous Epithelial Cell Urine None seen /hpf (Few); WBC Urine >100 /hpf; pH Urine 7.5 (5.0-9.0)
[2023-03-12 05:49] LABS: Add Urine Microscopic? YES
--- NOTE | 2023-03-12 06:22 | ED.GENADULT ---
HPI - General Adult General Chief complaint: Urogenital-Male Stated complaint: unable to urinate Time Seen by Provider: 03/12/23 05:33 History of Present Illness HPI narrative: Patient 87-year-old gentleman who presents emerged from with chief complaint of urinary retention. Patient was recently seen for sciatica and presents tonight after he stopped being able to urinate. Upon arrival to the emergency department the patient had approximately 700 mL of urine in his bladder and was a complaining of exquisite pain in the suprapubic region Related Data Home Medications Medication Instructions Recorded Confirmed aspirin 81 mg tablet,delayed 81 mg PO 1XD 09/24/19 05/10/22 release metoprolol succinate 25 mg 25 mg PO HS 04/08/20 05/10/22 tablet,extended release 24 hr magnesium 250 mg tablet 250 mg PO DAILY 01/20/22 05/10/22 mghllqyd-lvv-CG 200 mcg-vit K 15 1 tablet PO DAILY 08/31/22 mcg-lycope 150 gnj-wabtob-cegi tablet (Ocuvite Eye Plus Multi) Allergies Allergy/AdvReac Type Severity Reaction Status Date / Time No Known Allergies Allergy Verified 03/12/23 04:33 Review of Systems Review of Systems: A 10 system review of systems was completed on the patient and is negative except for what is stated in the HPI. Nursing and ancillary documentation was reviewed. FORMERLY [facility] Past Medical History Medical History Atherosclerotic heart disease of [place] coronary artery with angina pectoris Benign prostatic hyperplasia with nocturia Body mass index [BMI] 30.0-30.9, adult (09/15/17) Body mass index [BMI] 31.0-31.9, adult (04/28/17) Body mass index [BMI] 32.0-32.9, adult (08/21/15) Complete tear of right rotator cuff Enlarged prostate without lower urinary tract symptoms (luts) Gastro-esophageal reflux disease without esophagitis Hematuria Hyperlipidemia Hypertension Nocturia Right arm pain Right shoulder pain Sinusitis chronic, frontal Tear of biceps tendon Tear of right rotator cuff Vitamin D deficiency Surgical History Surgical History S/P CABG x 5 Family History Family History Mother Family history of malignant neoplasm Sibling Family history of congenital heart disease Family history of heart disease in male family member before age 55 Father Family history of chronic obstructive pulmonary disease Family history of emphysema Other Diabetes mellitus Family history of cardiovascular disease Hypertension Social History Social History Smoking status: Never smoker Alcohol intake: never Substance use: never Substance use type: does not use Current Housing: Decline to Answer Concerned About Future Housing: Decline to Answer Difficulty Paying Gas/Electric Bills: Decline to Answer Difficulty Paying for Meds: Decline to Answer Currently Unemployed: Decline to Answer Education: Decline to Answer Difficulty w/ Childcare or Family Care: Decline to Answer Living arrangements: with family Spiritual care concerns: No Exam Narrative: GENERAL: Well-appearing, well-nourished, and in no acute distress. HEAD: Normocephalic, atraumatic. EYES: PERRLA and EOMI. ENT: Nares clear, no rhinorrhea or epistaxis. Mucous membranes moist. NECK: Supple. CHEST: Clear to auscultation. No respiratory distress. HEART: Regular rate and rhythm. No murmur heard. Normal peripheral pulses. ABDOMEN: Soft, nontender, nondistended, normal active bowel sounds. EXTREMITIES: Normal range of motion. No edema. SKIN: Warm, dry, no rash. NEURO: No focal deficits. Alert and oriented x3. PSYCH: Normal mood and affect. Course Vital Signs Vital signs: Vital Signs Temperature 36.5 C 03/12/23 04:48 Pulse Rate 97 03/12/23 04:48 Respiratory Rat
[2023-03-12 06:55] VITALS: BP 168/84; PULSE 92; RESP 14; O2SAT 100
== END 2023-03-12 06:56 | disposition home or self-care (01) ==
PROVIDERS: Emergency Provider Emergency Medicine; PCP Emergency Medicine
DX: N39.0 Urinary tract infection, site not specified (principal); N40.1 Benign prostatic hyperplasia with lower urinary tract symptoms; R33.8 Other retention of urine; I25.119 Atherosclerotic heart disease of native coronary artery with unspecified angina pectoris; I10 Essential (primary) hypertension; R35.1 Nocturia; E78.5 Hyperlipidemia, unspecified; E55.9 Vitamin D deficiency, unspecified; K21.9 Gastro-esophageal reflux disease without esophagitis; Z95.1 Presence of aortocoronary bypass graft; Z79.82 Long term (current) use of aspirin
CPT/HCPCS: 36415; 51702; 80053; 81001; 85025; 85055; 87086; 99283

== ENCOUNTER 2023-03-25 15:02 | Outpatient (CLI) | payer MEDICARE, BC, SELFPAY ==
--- NOTE | ~2023-03-25 | XR_ITS ---
EXAM: XR abdomen/kub 1V DATE: 03/25/2023 15:58 HISTORY: OBSTRUCTION OF RIGHT URETEROPELVIC JUNCTION . COMPARISON: None available. FINDINGS: Clear lung bases. Intact sternotomy wire. Cholecystectomy clips. Surgical clips also proje ct over the left anterior chest and left inguinal canal. Normal bowel gas pattern. No organomegaly. M ultiple right renal calcifications, largest measures 1.7 x 2.5 cm overlying the right renal pelvis. M ultiple pelvic phleboliths Lumbar degenerative disc disease. Degenerative changes in the bilateral SI joints and hips. IMPRESSION: Right nephrolithiasis including a 1.7 x 2.5 cm calcification overlying the right renal pe lvis. Reviewed, dictated and finalized at location K. IMPRESSION: Right nephrolithiasis including a 1.7 x 2.5 cm calcification overly ing the right renal pelvis.
--- NOTE | ~2023-03-25 | CT_ITS ---
EXAMINATION: CT abdomen pelvis wo con DATE: 03/25/2023 15:38 INDICATION: OBSTRUCTION OF RIGHT URETEROPELVIC JUNCTION TECHNIQUE: Computed tomography (CT) of the abdomen and pelvis was performed without intravenous contr ast. Automated exposure control and iterative reconstruction technique were employed. The dose-length product was 203.22 mGy-cm. COMPARISON: 05/10/2022. FINDINGS: Lower thorax: Coronary artery calcifications. Prior CABG. Liver: Normal. Biliary/Gallbladder: Gallbladder is absent. No bile duct dilation. Pancreas: Mild atrophy. Scattered calcifications may represent vascular calcification or sequela of c hronic pancreatitis. Spleen: Normal. Adrenals:No mass. Kidneys: Moderate bilateral perinephric stranding. Mild bilateral cortical scarring. Simple left uppe r pole cyst. No left hydronephrosis. Multiple right renal calcifications including an 11 x 19 mm calc ification over the right renal pelvis. Mild right caliectasis. GI tract: Small hiatal hernia. No small or large bowel dilation. Short segment area of partially circ umferential cecal wall thickening with surrounding inflammatory change. Normal appendix. Diverticulos is without diverticulitis. Mesentery/Peritoneum: No ascites, mass, or free air. Retroperitoneum: No mass. Atherosclerotic abdominal aortic and/or arterial calcifications. Pelvis: Focal calcification near the right UVJ. Linear urinary bladder calcifications, increased sinc e prior study, may represent wall calcification. Gas within the urinary bladder. Marked prostatomegal y. Soft Tissues: Soft tissues and body wall unremarkable. Bones: No acute osseous finding. IMPRESSION: Multiple right kidney stones including an 11 x 19 mm calcification in the right renal pelvis. There i s mild right caliectasis. Interval development of wall thickening within the cecum which may be secondary to infection, inflamm ation, or tumor. Consider referral for colonoscopy. Recently passed stone in the urinary bladder. Gas within the bladder lumen, correlate with history of recent catheterization or instrumentation. Reviewed, dictated and finalized at location K. IMPRESSION: Multiple right kidney stones including an 11 x 19 mm calcification in the right renal pelvis. There is mild right caliectasis. Interval development of wall thickening within the cecum which may be secondary to infection, inflammation, or tumor. Consider referral for colonoscopy. Recently passed stone in the urinary bladder. Gas within the bladder lumen, cor relate with history of recent catheterization or instrumentation.
== END 2023-03-25 15:03 | disposition home or self-care (01) ==
PROVIDERS: PCP Emergency Medicine; Visit Provider Nurse Practitioner Adult Health
DX: N20.1 Calculus of ureter (principal)
CPT/HCPCS: 74018; 74176

== ENCOUNTER 2023-04-26 09:11 | Outpatient (CLI) | payer MEDICARE, BC, SELFPAY ==
[2023-04-26 10:23] LABS: Hematocrit 38.5 % (42.0-52.0); Immature Platelet Fraction Pct 6.9 % (0.9-11.2); Mean Corpuscular HGB Conc 33.8 g/dl (32-36); Mean Corpuscular Hemoglobin 31.2 pg (26-34); Mean Corpuscular Volume 92.3 fl (80-100); Mean Platelet Volume 10.9 fl (7.4-10.4); Platelet Count Result 106 k/mm3 (150-375); Red Blood Count 4.17 M/mm3 (4.6-6.20); Red Cell Distribution Width 12.1 % (11.5-14.5); White Blood Count 6.3 K/mm3 (4.5-10.0)
[2023-04-26 10:33] LABS: Alanine Aminotransferase 6 U/L (6-50); Albumin Level 3.8 g/dL (3.5-5.1); Alkaline Phosphatase 54 U/L (38-126); Anion Gap 6 mmol/L (8-16); Aspartate Amino Transferase 25 U/L (17-59); Bilirubin,Total 1.5 mg/dL (0.2-1.3); Blood Urea Nitrogen 14 mg/dL (9-20); Calcium 9.4 mg/dL (8.4-10.2); Carbon Dioxide 33 mmol/L (22-30); Chloride 103 mmol/L (98-107); Cholesterol 131 mg/dL (0-200); Estimated Glomerular Filt Rate > 60; Glucose 99 mg/dL (65-110); HDL Direct 38 mg/dL; Sodium 142 mmol/L (137-145); Triglycerides 116 mg/dL (<150)
[2023-04-26 10:44] LABS: LDL Cholesterol Direct 75 mg/dL
[2023-04-30 11:49] LABS: Vitamin D 1,25 (OH)2 Total 31 pg/mL (18-72); Vitamin D2 1,25 (OH)2 <8 pg/mL; Vitamin D3 1,25 (OH)2 31 pg/mL
== END 2023-04-26 09:12 | disposition home or self-care (01) ==
LOC: ANHLAB 09:13
PROVIDERS: PCP Emergency Medicine; Visit Provider Emergency Medicine
DX: E78.5 Hyperlipidemia, unspecified (principal); E55.9 Vitamin D deficiency, unspecified; R53.83 Other fatigue
CPT/HCPCS: 36415; 80053; 80061; 82652; 85027; 85055

== ENCOUNTER 2023-05-06 07:01 | Outpatient (CLI) | payer MEDICARE, BC, SELFPAY ==
[2023-05-06 07:40] LABS: Alanine Aminotransferase 9 U/L (6-50); Alkaline Phosphatase 59 U/L (38-126); Anion Gap 4 mmol/L (8-16); Aspartate Amino Transferase 25 U/L (17-59); Bilirubin,Total 1.3 mg/dL (0.2-1.3); Blood Urea Nitrogen 13 mg/dL (9-20); Calcium 9.5 mg/dL (8.4-10.2); Carbon Dioxide 31 mmol/L (22-30); Chloride 107 mmol/L (98-107); Cholesterol 126 mg/dL (0-200); Estimated Glomerular Filt Rate > 60; Glucose 106 mg/dL (65-110); HDL Direct 40 mg/dL; Potassium 3.7 mmol/L (3.4-5.0); Sodium 142 mmol/L (137-145); Triglycerides 113 mg/dL (<150)
[2023-05-06 07:51] LABS: LDL Cholesterol Direct 70 mg/dL
== END 2023-05-06 07:02 | disposition home or self-care (01) ==
LOC: ANHLAB 07:04
PROVIDERS: PCP Emergency Medicine; Visit Provider Emergency Medicine
DX: E78.5 Hyperlipidemia, unspecified (principal); E55.9 Vitamin D deficiency, unspecified
CPT/HCPCS: 36415; 80053; 80061; 82306

== ENCOUNTER 2023-09-30 08:32 | Outpatient (CLI) | payer MEDICARE, BC, SELFPAY ==
[2023-09-30 09:21] LABS: Alanine Aminotransferase 22 U/L (6-50); Albumin Level 3.9 g/dL (3.5-5.1); Alkaline Phosphatase 63 U/L (38-126); Anion Gap 4 mmol/L (8-16); Aspartate Amino Transferase 44 U/L (17-59); Bilirubin,Total 1.2 mg/dL (0.2-1.3); Blood Urea Nitrogen 28 mg/dL (9-20); Calcium 10.2 mg/dL (8.4-10.2); Carbon Dioxide 27 mmol/L (22-30); Chloride 108 mmol/L (98-107); Cholesterol 110 mg/dL (0-200); Estimated Glomerular Filt Rate 52; Glucose 105 mg/dL (65-110); HDL Direct 36 mg/dL; Potassium 4.7 mmol/L (3.4-5.0); Sodium 139 mmol/L (137-145); Triglycerides 79 mg/dL (<150)
[2023-09-30 09:32] LABS: LDL Cholesterol Direct 65 mg/dL
== END 2023-09-30 08:33 | disposition home or self-care (01) ==
PROVIDERS: PCP Emergency Medicine; Visit Provider Emergency Medicine
DX: E78.5 Hyperlipidemia, unspecified (principal); E55.9 Vitamin D deficiency, unspecified
CPT/HCPCS: 36415; 80053; 80061; 82306

== ENCOUNTER 2023-10-04 08:25 | Outpatient (CLI) | payer MEDICARE, BC, SELFPAY ==
--- NOTE | ~2023-10-04 | XR_ITS ---
EXAMINATION: XR abdomen/kub 1V INDICATION: Right UPJ obstruction TECHNIQUE: Supine views of the abdomen were obtained on 2 radiographs. COMPARISON: 03/25/2023 FINDINGS: A 2.8 cm stone again projects in the expected location of the right renal pelvis. There is an 11 mm stone of the right kidney lower pole. Smaller adjacent stones of the right kidney lower pole measure up to 4 mm. There are phleboliths of the pelvis. The bowel gas pattern is normal. Cholecyste ctomy clips are noted. There is severe lumbar spondylosis. IMPRESSION: 1. Right nephrolithiasis including a 2.8 cm stone presumed to be in the right renal pelvis. Reviewed, dictated and finalized at location L. OFFICER IMPRESSION: 1. Right nephrolithiasis including a 2.8 cm stone presumed to be in the right r enal pelvis.
== END 2023-10-04 08:26 | disposition home or self-care (01) ==
LOC: ANHIMG 08:30
PROVIDERS: PCP Emergency Medicine; Visit Provider Urology
DX: N20.1 Calculus of ureter (principal)
CPT/HCPCS: 74018

== ENCOUNTER 2023-12-26 08:14 | Outpatient (CLI) | payer MEDICARE, BC, SELFPAY ==
[2023-12-26 09:38] LABS: Alanine Aminotransferase 6 U/L (6-50); Alkaline Phosphatase 69 U/L (38-126); Anion Gap 5 mmol/L (4-12); Aspartate Amino Transferase 31 U/L (17-59); Bilirubin,Total 1.2 mg/dL (0.2-1.3); Blood Urea Nitrogen 25 mg/dL (9-20); Calcium 9.6 mg/dL (8.4-10.2); Carbon Dioxide 28 mmol/L (22-30); Chloride 107 mmol/L (98-107); Cholesterol 110 mg/dL (0-200); Estimated Glomerular Filt Rate 57; Glucose 91 mg/dL (65-110); HDL Direct 40 mg/dL; Potassium 3.4 mmol/L (3.4-5.0); Sodium 140 mmol/L (137-145); Triglycerides 81 mg/dL (<150)
[2023-12-26 09:49] LABS: LDL Cholesterol Direct 67 mg/dL
== END 2023-12-26 08:15 | disposition home or self-care (01) ==
PROVIDERS: PCP Emergency Medicine; Visit Provider Emergency Medicine
DX: E55.9 Vitamin D deficiency, unspecified (principal); E78.5 Hyperlipidemia, unspecified
CPT/HCPCS: 36415; 80053; 80061; 82306

== ENCOUNTER 2024-02-06 07:31 | Outpatient (CLI) | payer MEDICARE, BC, SELFPAY ==
--- NOTE | ~2024-02-06 | XR_ITS ---
EXAMINATION: XR hip RT min 2V DATE: 02/06/2024 07:50 INDICATION: Right hip pain. TECHNIQUE: 2 views of right hip were obtained. COMPARISON: Right hip radiographs 02/13/2023 FINDINGS: There is lumbar levocurvature and severe spondylosis. No fracture. There is mild right hip osteoarthritis. IMPRESSION: 1. Mild right hip osteoarthritis. Reviewed, dictated and finalized at location A.
== END 2024-02-06 07:32 | disposition home or self-care (01) ==
LOC: ANHIMG 07:35
PROVIDERS: PCP Emergency Medicine; Visit Provider Emergency Medicine
DX: M16.11 Unilateral primary osteoarthritis, right hip (principal)
CPT/HCPCS: 73502

== ENCOUNTER 2024-05-03 08:02 | Outpatient (CLI) | payer MEDICARE, BC, SELFPAY ==
[2024-05-03 08:58] LABS: Albumin Level 3.7 g/dL (3.5-5.1); Alkaline Phosphatase 57 U/L (38-126); Anion Gap 5 mmol/L (4-12); Aspartate Amino Transferase 28 U/L (17-59); Bilirubin,Total 1.1 mg/dL (0.2-1.3); Blood Urea Nitrogen 17 mg/dL (9-20); Calcium 9.4 mg/dL (8.4-10.2); Carbon Dioxide 32 mmol/L (22-30); Chloride 102 mmol/L (98-107); Cholesterol 96 mg/dL (0-200); Estimated Glomerular Filt Rate > 60; Glucose 94 mg/dL (65-110); HDL Direct 37 mg/dL; Potassium 3.5 mmol/L (3.4-5.0); Sodium 139 mmol/L (137-145); Triglycerides 72 mg/dL (<150)
[2024-05-03 09:12] LABS: Alanine Aminotransferase < 6 U/L (6-50)
[2024-05-03 09:52] LABS: Vitamin D 25 Hydroxy 65.5 ng/mL
[2024-05-03 10:58] LABS: LDL Cholesterol Direct 46 mg/dL
== END 2024-05-03 08:03 | disposition home or self-care (01) ==
PROVIDERS: PCP Emergency Medicine; Visit Provider Emergency Medicine
DX: E55.9 Vitamin D deficiency, unspecified (principal); E78.5 Hyperlipidemia, unspecified
CPT/HCPCS: 36415; 80053; 80061; 82306

== ENCOUNTER 2024-06-05 07:09 | Outpatient (CLI) | payer MEDICARE, BC, SELFPAY ==
--- NOTE | ~2024-06-05 | XR_ITS ---
XR abdomen/kub 1V Ordering provider: Shraddha Galvez APRN History: . CONSTIPATION, Parkinson's disease without dyskinesia . Comparison: None. FINDINGS: BOWEL: Nonobstructive bowel gas pattern. ORGANOMEGALY: None. SIGNIFICANT PATHOLOGIC CALCIFICATIONS: Multiple calcific stones in the right kidney area. OTHER: No free air is seen under the diaphragm. Degenerative changes of the spine. Bilateral sacroili itis. IMPRESSION: NO ACUTE ABDOMINAL FINDINGS. Multiple stones in the right kidney. Reviewed, dictated and finalized at location A.
== END 2024-06-05 07:10 | disposition home or self-care (01) ==
PROVIDERS: PCP Emergency Medicine; Visit Provider Nurse Practitioner Family
DX: K59.00 Constipation, unspecified (principal); G20.A1 Parkinson's disease without dyskinesia, without mention of fluctuations; N20.0 Calculus of kidney
CPT/HCPCS: 74018

== ENCOUNTER 2024-09-01 10:07 | Outpatient (CLI) | payer MEDICARE, BC, SELFPAY ==
[2024-09-01 10:40] LABS: Albumin Level 4.1 g/dL (3.5-5.1); Alkaline Phosphatase 67 U/L (38-126); Anion Gap 6 mmol/L (4-12); Aspartate Amino Transferase 24 U/L (17-59); Bilirubin,Total 1.5 mg/dL (0.2-1.3); Blood Urea Nitrogen 23 mg/dL (9-20); Calcium 9.4 mg/dL (8.4-10.2); Carbon Dioxide 31 mmol/L (22-30); Chloride 104 mmol/L (98-107); Cholesterol 103 mg/dL (0-200); Estimated Glomerular Filt Rate > 60; Glucose 93 mg/dL (65-110); HDL Direct 38 mg/dL; Potassium 3.4 mmol/L (3.4-5.0); Sodium 141 mmol/L (137-145); Triglycerides 71 mg/dL (<150)
[2024-09-01 10:54] LABS: Alanine Aminotransferase < 6 U/L (6-50)
[2024-09-01 11:00] LABS: Vitamin D 25 Hydroxy 62.5 ng/mL
[2024-09-01 11:07] LABS: LDL Cholesterol Direct 45 mg/dL
--- OUTSIDE RECORDS SUMMARY | 2024-09-06 08:49 | XMS_ITS | Data Portability ---
Author Organization [place] [facility], Main Office Address [address] [place] [address] Care Team Providers Care Business Support Liaison Name Role Phone SVITLANA CANCINO Primary Care Provider [phone] SVITLANA CANCINO Referring Provider [phone] Assessment Encounter Date Assessment Date Assessment LastModified by Organization Details LastModified Time 10/21/2022 10/21/2022 Patient presents ankle pain right. Tender to palpation pain to manipulation he is better but not nearly 100% he still remains symptomatic his x-rays today look okay I do not see any obvious fractures in the stress fractures I think the ankle pain that he had which is now going to the heel may just be from overuse or may be from the ulceration that he had over the area this seems to be healing I think we had a leave well enough alone to see if will continue to heal. I recommended follow-up on an as-needed basis he can wear some inserts for arch supports if he has any increase in symptoms he will call discussed. anthony Not available 10/21/2022 09:40:56 Plan of Treatment Reminders Order Date Submit Date Provider Last Modified By Organization Details Last Modified Time Details Appointments None recorde d. Lab None recorde d. Referral None recorde d. Procedures None recorde d. Surgeries None recorde d. Imaging XR, ankle 023 10/22/19 23 [email or web address] [facility] [place], [address] [facility] [address], [place], [address], 3 10:38:12 Medication Orders None recorde d. Patient TargetsNo targets recorded. Patient InstructionsNo instructions recorded. Reason for Referral None Reported. Results Created Date Observation Date Name Description Value Unit Range Abnormal Flag Note LastModifiedBy Organization Detail LastModifiedTime 08/19/19 23 XR, ankle No observ ation record ed. [id number] [facility] [place] [address], [place], [address], 10/14/2022 01:48:18 10/22/19 23 XR, ankle No observ ation record ed. [email or web address] [facility] [place] [address], [address], 10/21/2022 10:38:11 Result Notes None recorded. Problems Name Problem SNOMED Code Status Onset Date Resolution Date Notes Provider Name and Address Organization Details Recorded Time Pain in right sacroiliac joint 2785164903832 9107 Active 2022 Not Available [facility] 3 01:47:48 Pain of right ankle joint 7814265248808 9106 Active 2022 Not Available [facility] 3 01:47:48 Problem Notes None recorded. Procedures Surgical History Date Name Laterality Status Provider Name and Address Organization Details Recorded Time cardiopulmonary bypass operation completed Not Available [facility] 10/14/2022 01:47:27 Imaging Results Imaging Date Name Status LastModified by Organiz ation Details LastModified Time 08/19/2022 XR, ankle completed [id number] [facility] [place] [address], [place], [address], 10/14/2022 01:48:18 10/21/2022 XR, ankle completed [id number] [facility] [place] [address], [address], 10/21/2022 10:38:11 Procedure Notes None recorded. Medical Equipment None Reported. Medications Name Sig Start Date Stop Date Status Note LastModified by Organization Details LastModified Time atorvastati n 10 mg tablet TAKE 1 TABLET BY MOUTH EVERY OTHER DAY active Not Available Not Available No t Available cyanocobala min (vit B-12) 1,000 mcg tablet TAKE 1 TABLET BY MOUTH IN THE MORNING active Not Available Not Available No t Available prednisone 10 mg tablets in a dose pack Take 1 tab by mouth, 3 times a day for 3 daysTake 1 tab by mouth 2 times a day for 2 daysTake 1 tab by mouth once a day for 1 day 10/21 completed Not Available Not Available Not Available amoxicillin 875 mg tablet TAKE 1 TABLET BY MOUTH EVERY 12 HOURS FOR 9 DAYS 08/19 completed Not Available Not Available Not Available tamsulosin 0.4 mg capsule TAKE 1 CAPSULE BY MOUTH ONCE DAILY 30 MINUTES FOLLOWING THE SAME MEAL EACH DAY active Not Available Not Available No t Available pantoprazol e 40 mg tablet,brigitte yed release TAKE 1 TABLET BY MOUTH AT BEDTIME FOR 6 WEEKS 08/19 completed Not Available Not Available Not Available diclofenac sodium 75 mg tablet,brigitte yed release Take 1 tablet twice a day by oral route. active Not Available Not Available No t Available metoprolol succinate ER 25 mg tablet,exte nded release 24 hr TAKE 1 TABLET BY MOUTH ONCE DAILY active Not Available Not Available No t Available celecoxib 100 mg capsule Take 1 capsule every day by oral route. 10/21 completed Not Available Not Available Not Available carbidopa 25 mg-levodopa 100 mg tablet WEEK 1: TAKE 1 TABLET AT BEDTIME WEEK 2: TAKE ONE TABLET MID-DAY AND ONE TABLET AT BEDTIME WEEK 3- TAKE 1 TABLET IN THE MORNING, ONE TABLET MID-DAY, AND ONE TABLET AT BEDTIME active Not Available Not Available No t Available finasteride 5 mg tablet TAKE 1 TABLET BY MOUTH IN THE MORNING 08/19 completed Not Available Not Available Not Available doxazosin 2 mg tablet TAKE 1 TABLET BY MOUTH ONCE DAILY active Not Available Not Available No t Available Asprin Ec Low Dose 81 mg tablet,brigitte yed release Take 1 tablet every day by oral route. 2022 active Not Available Not Available Not Avai lable magnesium 2022 active Not Available Not Available Not Avai lable fenofibric acid (choline) 135 mg capsule,del ayed release TAKE 1 CAPSULE BY MOUTH ONCE DAILY AT BEDTIME active Not Available Not Available No t Available Ocuvite Eye Plus Multi 200 mcg-15 mcg-150 mcg tablet Take by oral route. 2022 active Not Available Not Available Not Avai lable Vitals Date Recorded Body mass index (BMI) Body height Body weight Provider Name and Address Organization Details Last Updated DateTime 08/19/2022 27.3 kg/m2 162.56 cm 70062.19 g Not Available [facility] 10/14/2022 01:47:39 Date Recorded Body mass index (BMI) Body height Body weight Provider Name and Address Organization Details Last Updated DateTime 09/20/2022 27.5 kg/m2 162.56 cm 52195.78 g Not Available [facility] 10/14/2022 01:47:39 Date Recorded Body height Body mass index (BMI) Body weight Provider Name and Address Organization Details Last Updated DateTime 10/21/2022 162.56 cm 27.5 kg/m2 46416.78 g NELL Hdez [place] [employer] [facility] 10/21/2022 09:05:13 Social History Question Answer Notes LastModified by Organizat ion Details LastModified Time Tobacco Smoking Status Never Smoker Not Available [facility] 10/14/2022 01:47:04 What Is Your Level Of Alcohol Consumption? None [id number] Information not available 10/14/2022 Sex: Unknown Functional Status None recorded. Mental Status None recorded. Family History Relationship Description Onset Age of this Age Resolved Age Notes LastModified by Organization Details LastModified Time Mother Heart disease [id number] Not available 10/14/2022 01:47:28 Mother Family history of malignant neoplasm [id number] Not available 10/14/2022 01:47:28 Medical History Condition Response CANCER: SPECIFY Y HEPATITIS / LIVER DISEASE Y Past Encounters Encounter ID Performer Location Encounter Start Date Encounter Closed Date Diagnosis/Indication Diagnosis SNOMED-CT Code Diagnosis ICD10 Code Diagnosis Note [id number] [facility] [place] [address] [place] [address] 08/19/2022 00:00:00 08/19/2022 14:13:58 [id number] [facility] [place] [address] [place] [address] 09/20/2022 00:00:00 09/20/2022 09:09:58 [id number] Rony Hutson MD [facility] [place] [address] [place] [address] 10/21/2022 09:01:42 10/21/2022 10:11:06 Pain in right sacroiliac joint 7515500655 9008739 M53.3 Pain of ri ght ankle joint 4485109809 2898554 M25.571 Health Concerns Section Related Observation LastModified by Organization Detai ls LastModified Time None Recorded Concern Status LastModified by Organization Details LastModified Time None Recorded Advance Directives Directive None Recorded Payers Encounter Date Sequence Insurance Name Policy Number Policy Plasencia Covered Member ID Plasencia Member ID Guarantor Name 10/21/2022 1 [place] Trav Murrieta [id number] Trav Murrieta 10/21/2022 2 [place] [id number] Trav Murrieta [id number] Trav Murrieta Notes Date Note Type Note Provider Name and Address Organization Details Recorded Time 10/21/2022 text/html Patient returns ankle pain right. Pain is localized right ankle laterally off about about 6 cm from the tip is tender to palpation in the ulceration he has healed and the pain is a little bit better I think some of it was probably from the ulceration. Rony Hutson MD [address] [place] [address], [place] [address], [place], [address], [place] [facility] [employer] 10/21/2022 10:38:22
--- OUTSIDE RECORDS SUMMARY | 2024-09-06 08:49 | XMS_ITS | Clinical Summary ---
Author Organization [facility] Address [address] [place] [address] Phone Care Team Providers Care End Lathe Operator Name Role Phone Unavailable Primary Care Provider Unavailabl e Medications carbidopa-levodo pa (PARCOPA) 25-100 mg Tablet, Rapid Dissolve Place 1 Tablet inside cheek 3 times daily. Active aspirin (ECOTRIN EC) 81 mg Tablet, Delayed Release (E.C.) Take 81 mg by mouth daily. Active metoprolol tartrate (LOPRESSOR) 25 mg tablet Take 25 mg by mouth 2 times daily. Active cholecalciferol, Vitamin D3, 125 mcg (5,000 unit) Capsule Take 5,000 Units by mouth daily. Active atorvastatin (LIPITOR) 10 mg tablet Take 10 mg by mouth daily. Active doxazosin (CARDURA) 2 mg tablet Take 2 mg by mouth daily. Active Active Problems No known active problems Encounters Date Type Department Care Team Description 08/30/2024 1:00 PM OUTREACH TEAM MEMBER - 08/30/2024 11:59 PM [facility] Hospital Encounter [facility] [place] [address] [place] [address] Lola Corona PA-C Kos, Ksenija, MD Discharge Disposition: Home or Self Care from Last 3 Months Family History Medical History Relation Name Comments Other Father tobacco use Other Maternal Grandfather tobacco use Cancer Maternal Grandmother Other Maternal Grandmother tobacco use Cancer Mother Hypertension Mother Other Paternal Grandfather tobacco use Other Paternal Grandmother tobacco use Other Sister tobacco use Relation Name Status Comments Father Maternal Grandfather Maternal Grandmother Mother Paternal Grandfather Paternal Grandmother Sister Social History Tobacco Use Types Packs/Day Years Used Date Smoking Tobacco: Never Smokeless Tobacco: Never Tobacco Cessation:Counseling Given: Not Answered Alcohol Use Standard Drinks/Week Comments Never 0 (1 standard drink = 0.6 oz pur e alcohol) Sex and Gender Information Value Date Recorded Sex Assigned at Not on file Legal Sex Male 1:55 PM CDT Gender Identity Not on file Sexual Orientation Not on file Occupation Industry Job Start Date Job End Date retired Not on file Not on file Not on file Last Filed Vital Signs Vital Sign Reading Time Taken Comments Blood Pressure 172/76 04/25/2024 4:21 PM CDT Pulse 70 04/25/2024 4:21 PM CDT Temperature 37.1 ??C (98.8 ??F) 04/25/2024 4:21 PM CD T Respiratory Rate - - Oxygen Saturation - - Inhaled Oxygen Concentration - - Weight 64.4 kg (142 lb) 04/25/2024 4:21 PM CDT Height 157.5 cm (5' 2 ) 04/25/2024 4:21 PM CDT Body Mass Index 25.97 04/25/2024 4:21 PM CDT Plan of Treatment Health Maintenance Due Date Last Done Comments DTAP/TDAP/TD VACCINES (1 - Tdap) 1954 Traditional Medicare (ACO) Annual Wellness Visit 04/18 PNEUMOCOCCAL VACCINE 65+ YEARS (1 of 1 - PCV) 04/18/19 87 ZOSTER VACCINE (1 of 2) 1987 RSV VACCINE (60+ or ) (1 - 1-dose 75+ series) 2012 INFLUENZA VACCINE (#1) 2024 Procedures Procedure Name Priority Date/Time Associated Diagnosis Comments EMG WITH NERVE CONDUCTION Routine 08/30/2024 2:23 PM OUTREACH TEAM MEMBER Lumbar radiculopathy from Last 3 Months Results * EMG WITH NERVE CONDUCTION (08/30/2024 2:23 PM OUTREACH TEAM MEMBER) Narrative Procedure Note Sofi Bishop MD - 08/30/2024 2:23 PM CST [place], [place] [address] EMG/NCS CSN: [id number] DATE OF SERVICE: REASON FOR REFERRAL This patient is an 89-year-old man, who was referred to electrodiagnosticlaboratory for evaluation of pain around his right hip area. Namely, hehas a very tender spot to palpation over the greater trochanter. SUMMARY OF FINDINGS The right tibial motor nerve conduction study recorded over abductorhallucis revealed small CMAP amplitude, mildly prolonged distal motorlatency, and normal conduction velocity. The right deep peroneal motor nerve conduction study recorded overextensor digitorum brevis revealed very small CMAP amplitude, mildlyprolonged distal motor latency, and slowed conduction velocity. The right deep peroneal motor nerve conduction study recorded overtibialis anterior revealed small CMAP amplitude, normal distal motorlatency, and conduction velocity. The left tibial motor nerve conduction study recorded over abductorhallucis revealed small CMAP amplitude, normal distal motor latency, andslowed conduction velocity. The left deep peroneal motor nerve conduction study recorded over extensordigitorum brevis revealed small CMAP amplitude, normal distal motorlatency, and significant slowing of conduction velocity across the fibularhead. Bilateral superficial peroneal sensory nerve conduction studies revealedlow normal SNAP amplitudes, mildly prolonged distal sensory latency on theright, and slowed conduction velocities bilaterally. Bilateral sural sensory nerve conduction studies revealed small SNAPamplitudes, prolonged distal sensory latency on the right, and slowedconduction velocity on the right. EMG of the right tibialis anterior revealed evidence of active and chronicdenervation. EMG of the right extensor digitorum longus revealed evidenceof chronic denervation. EMG of the right medial head of thegastrocnemius, vastus lateralis, and long head of the biceps femoris wasnormal. EMG of the left tibialis anterior and extensor digitorum longus revealedevidence of active and chronic denervation. EMG of the left medial headof gastrocnemius, vastus lateralis, and long head of the biceps femoriswas normal. 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 This neuropathy isaxonal. There is an electrodiagnostic evidence compatible with a distaldenervation bilaterally, mostly in the deep peroneal nerve distributions(L4/L5/S1 nerve roots). 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 Clinically, the patient complains of significant pain in the area of theright hip. Please evaluate and treat accordingly. KK:MEDQ DID:[id number] Dictated by: Sofi Bishop MD us Lola Corona PA-C NEUROLOGY ORDERABLES Final Result [facility] from Last 3 Months Insurance MEDICARE PART A AND B [facility] BLUE ACCESS CHOICE
--- OUTSIDE RECORDS SUMMARY | 2024-09-06 08:49 | XMS_ITS | Encounter Summary ---
Author Organization [employer] Address [address] [place] [address] Care Team Providers Care Tube Sorter Name Role Phone Unavailable Primary Care Provider Unavailabl e Reason for Referral * EMG (Routine) - Closed Specialty Diagnoses / Procedures Referred By Radha lucero Referred To Contact EMG Diagnoses Lumbar radiculopathy Procedures EMG WITH NERVE CONDUCTION Lola Corona PA-C [address] [address] Phone: tel: fax: [facility] [place] [address] [place] [address] Phone: tel: Referral ID Status Reason Start Date Expiration Date Visits Re quested Visits Authorized [id number] Closed 04/25/2024 05/26/2025 1 1 F COUNSEL Reason for Visit * EMG (Routine) - Closed Specialty Diagnoses / Procedures Referred By Radha lucero Referred To Contact EMG Diagnoses Lumbar radiculopathy Procedures EMG WITH NERVE CONDUCTION Lola Corona PA-C [address] [address] Phone: tel: fax: [facility] [facility] [place] [address] [place] [address] Phone: tel: Referral ID Status Reason Start Date Expiration Date Visits Re quested Visits Authorized [id number] Closed 04/25/2024 05/26/2025 1 1 Encounter Details Date Type Department Care Team (Latest Contact Info) Description 08/30/2024 1:00 PM STAFF COUNSEL - 08/30/2024 11:59 PM [facility] Hospital Encounter [facility] Support Services [facility] [address] [employer] [address] [place] [address] Lola Corona PA-C [address] [place] [address] Sofi Bishop MD [address] [place] [address] Discharge Disposition: Home or Self Care Social History Tobacco Use Types Packs/Day Years Used Date Smoking Tobacco: Never Smokeless Tobacco: Never Alcohol Use Standard Drinks/Week Comments Never 0 (1 standard drink = 0.6 oz pur e alcohol) Sex and Gender Information Value Date Recorded Sex Assigned at Not on file Legal Sex Male 1:55 PM CDT Gender Identity Not on file Sexual Orientation Not on file Occupation Industry Job Start Date Job End Date retired Not on file Not on file Not on file documented as of this encounter Medications at Time of Discharge carbidopa-levodop a (PARCOPA) 25-100 mg Tablet, Rapid Dissolve Place 1 Tablet inside cheek 3 times daily. aspirin (ECOTRIN EC) 81 mg Tablet, Delayed Release (E.C.) Take 81 mg by mouth daily. metoprolol tartrate (LOPRESSOR) 25 mg tablet Take 25 mg by mouth 2 times daily. cholecalciferol, Vitamin D3, 125 mcg (5,000 unit) Capsule Take 5,000 Units by mouth daily. atorvastatin (LIPITOR) 10 mg tablet Take 10 mg by mouth daily. doxazosin (CARDURA) 2 mg tablet Take 2 mg by mouth daily. documented as of this encounter Procedure Notes * Sofi Bishop MD - 08/30/2024 2:23 PM CSTAssociated Order(s): EMG WITH NERVE CONDUCTION [place], [place] [address] EMG/NCS CSN: [id number] DATE OF SERVICE: REASON FOR REFERRAL This patient is an 89-year-old man, who was referred to electrodiagnostic laboratory for evaluationof pain around his right hip area. Namely, he has a very tender spot to palpation over the greater trochanter. SUMMARY OF FINDINGS The right tibial motor nerve conduction study recorded over abductor hallucis revealed small CMAP amplitude, mildly prolonged distal motor latency, and normal conduction velocity. The right deep peroneal motor nerve conduction study recorded over extensor digitorum brevis revealed very small CMAP amplitude, mildly prolonged distal motor latency, and slowed conduction velocity. The right deep peroneal motor nerve conduction study recorded over tibialis anterior revealed smallCMAP amplitude, normal distal motor latency, and conduction velocity. The left tibial motor nerve conduction study recorded over abductor hallucis revealed small CMAP amplitude, normal distal motor latency, and slowed conduction velocity. The left deep peroneal motor nerve conduction study recorded over extensor digitorum brevis revealed small CMAP amplitude, normal distal motor latency, and significant slowing of conduction velocity across the fibular head. Bilateral superficial peroneal sensory nerve conduction studies revealed low normal SNAP amplitudes, mildly prolonged distal sensory latency on the right, and slowed conduction velocities bilaterally. Bilateral sural sensory nerve conduction studies revealed small SNAP amplitudes, prolonged distal sensory latency on the right, and slowed conduction velocity on the right. EMG of the right tibialis anterior revealed evidence of active and chronic denervation. EMG of the right extensor digitorum longus revealed evidence of chronic denervation. EMG of the right medial head of the gastrocnemius, vastus lateralis, and long head of the biceps femoris was normal. EMG of the left tibialis anterior and extensor digitorum longus revealed evidence of active and chronic denervation. EMG of the left medial head of gastrocnemius, vastus lateralis, and long head of the biceps femoris was normal. 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 This neuropathy is axonal. There is an electrodiagnostic evidence compatible with a distal denervation bilaterally, mostly in the deep peroneal nerve distributions (L4/L5/S1 nerve roots). 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 Clinically, the patient complains of significant pain in the area of the right hip. Please evaluateand treat accordingly. KK:MEDQ DID: [id number] Dictated by: Sofi Bishop MD F COUNSEL documented in this encounter Plan of Treatment Not on file documented as of this encounter Procedures Procedure Name Priority Date/Time Associated Diagnosis Comments EMG WITH NERVE CONDUCTION Routine 08/30/2024 2:23 PM STAFF COUNSEL Lumbar radiculopathy documented in this encounter Results * EMG WITH NERVE CONDUCTION (08/30/2024 2:23 PM STAFF COUNSEL) Narrative Procedure Note Sofi Bishop MD - 08/30/2024 2:23 PM CST [place], [place] [address] EMG/NCS CSN: [id number] DATE OF SERVICE: REASON FOR REFERRAL This [...] hip. Please evaluate and treat accordingly. KK:MEDQ DID:[id number] Dictated by: Sofi Bishop MD us Lola Corona PA-C NEUROLOGY ORDERABLES Final Result [facility] documented in this encounter Visit Diagnoses Diagnosis Lumbar radiculopathy Thoracic or lumbosacral neuritis or radiculitis, unspecified documented in this encounter
--- OUTSIDE RECORDS SUMMARY | 2024-09-06 08:49 | XMS_ITS | Encounter Summary ---
Author Organization [facility] Address [address] [place] [address] Care Team Providers Care Slat Pickler Name Role Phone Unavailable Primary Care Provider Unavailabl e Encounter Details Date Type Department Care Team (Late st Contact Info) Description 04/27/2024 Abstract [facility] Neurosurgery - [facility] [address] [facility] [address] [place] [address] Michelle Chaidez MD [address] [facility] [address] [address] -x0 (Work) Social History Tobacco Use Types Packs/Day Years [...] on file documented as of this encounter Plan of Treatment Not on file documented as of this encounter Visit Diagnoses Not on filedocumented in this encounter
--- OUTSIDE RECORDS SUMMARY | 2024-09-06 08:49 | XMS_ITS | Referral Summary ---
Author Organization [facility] [address] Address [address] [place] [address] Care Team Providers Care Tooth Grinder Name Role Phone Live Leroy MD Primary Care Provide r Allergies No known active allergies Medications fenofibrate choline (TRILIPIX) 135 mg capsule take 1 by Oral route every other day in the evening 0 2 Active doxazosin (CARDURA) 2 mg tablet take 1 tablet (2MG) by oral route every day in the evening 0 2 Active Additional Information Patient taking differently:2 mgoral Nightly, Reported on 07/01/2022 aspirin (ASPIRIN LOW DOSE) 81 mg tablet take 1 Tablet (81MG) by oral route every day 0 2 Active vit A,C and E-vuqabf-ikrgfu ls (VISION FORMULA, WITH LUTEIN,) 1,000 unit-200 mg-60 unit-2 mg tablet 0 0 4 Active atorvastatin (LIPITOR) 10 mg tablet take 1 tablet by oral route every other day 0 4 Active tadalafiL (CIALIS) 20 mg tablet Take 1 tablet (20 mg total) by mouth daily as needed for erectile dysfunction Active finasteride (PROSCAR) 5 mg tablet Take 1 tablet (5 mg total) by mouth every morning 2 Active cyanocobalamin- salcaprozat sod 1,000-100 mcg-mg tablet Take by mouth Ac tive carbidopa-levod opa (SINEMET) 25-100 mg per tablet 2 tablets four times daily Active potassium chloride ER 20 mEq CR tablet Take 1 tablet (20 mEq total) by mouth 3 (three) times a day 4 Active metoprolol XL (TOPROL-XL) 25 mg extended release tablet Take 1 tablet by mouth once daily 90 tablet 2 4 Active magnesium gluconate 200 mg tablet 1.25 tablets (250 mg total) 3 Active cholecalciferol 400 unit capsule 5,000 Units Active Active Problems Problem Noted Date Diagnosed Date Chest pain 05/01/2020 Nonrheumatic aortic valve stenosis 05/01/2020 Coronary artery disease invo lving [place] coronary artery of [place] heart without angina pectoris 06/14/2017 Hx of CABG 06/14/2017 Social History Tobacco Use Types Packs/Day Years Used Date Smoking Tobacco: Never Smokeless Tobacco: Never Tobacco Cessation:Counseling Given: Not Answered Alcohol Use Standard Drinks/Week Comments No 0 (1 standard drink = 0.6 oz pur e alcohol) Sex and Gender Information Value Date Recorded Sex Assigned at Not on file 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 Gender Identity Not on file Sexual Orientation Not on file Last Filed Vital Signs Vital Sign Reading Time Taken Comments Blood Pressure 92/50 03/15/2024 8:00 AM CDT Pulse 84 03/15/2024 8:00 AM CDT Temperature 36.5 ??C (97.7 ??F) 05/21/2020 8:17 AM CD T Respiratory Rate 12 06/14/2017 8:09 AM CDT Oxygen Saturation 97% 03/15/2024 8:00 AM CDT Inhaled Oxygen Concentration - - Weight 65 kg (143 lb 6.4 oz) 03/15/2024 8:00 AM CDT Height 157.5 cm (5' 2 ) 03/15/2024 8:00 AM CDT Body Mass Index 26.23 03/15/2024 8:00 AM CDT Plan of Treatment [place] [address] [place] [address] MEDICARE [employer] Care Teams Tooth Grinder Relationship Specialty Start Date End Date Live Leroy MD [address] [place] [address] PCP - General 05/18/12
--- OUTSIDE RECORDS SUMMARY | 2024-09-06 08:49 | XMS_ITS ---
Author Organization [facility] Address [address] [place], [place] [address] Care Team Providers Care Certification Engineer Name Role Phone FREDDY ARANA Unavailable [phone] Diogenes Heath Unavailable Unavailable Allergies No Known Allergies REASON FOR VISIT Right foot painful knot. Vital Signs Weight 140 lbs 01/26/2024 Weight-kg 63.5 kg 01/26/2024 Height 62 in 01/26/2024 Height-cm 157.48 cm 01/26/2024 BMI 25.6 kg/m2 01/26/2024 Encounters Encounter Location Date Provider Diagnosis [facility] [address] [place], [place] [id number] 01/26/2024 FREDDY ARANA Hallux rigidus of right foot M20.21 and Pain in right toe(s) M79.674 Assessments Encounter Date Diagnosis (ICD Code) Assessment Notes Treatment Notes Treatment Clinical Notes Section Notes 01/26/2024 Hallux rigidus of right foot (ICD-10 - M20.21) 01/26/2024 Pain in right toe(s) (ICD-10 - M79.674) 01/26/2024 Other Recommended he return to his painting manager for treatment Plan Of Treatment Treatment Notes Assessment Notes Other Recommended he retur n to his painting manager for treatment Progress Notes * ALISE MARTÍNEZDOB: (88 yo M)Acc No.[id number]:01/26/2024 Progress Notes Patient:?ALISE MARTÍNEZ Provider:?Freddy Arana DPM :1935???Age:88 Y???Sex:Male Art e:01/26/2024 Address:[address] [place] [address] , [place], [id number] Subjective: * Chief Complaints: * ???1. Right foot painful kno t.. * HPI: ???HPI:?New Complaint?Patient presents for a new patient consultation. Patient complains of an issue to the top of his right foot. He states he has had a painful knot for over a year. He has been seeing a painting manager for a year and was told it would help with the pain in his foot, but it hasn't helped. Patient denies any injury. MA: sea.? He states that the pain is not in the foot, but on the lateral leg. * ROS:?General / Constitutional:?Patient denies?chills, fever.?Endocrine:?Patient denies?excessive thirst, frequent urination.?Cardiovascular:?Patient denies?shortness of breath, chest pain.?Skin:?Patient denies?mole changes.? * Medical History:?Kidney ston es, Neuropathy, Stroke, Skin cancer, Leg/Feet cramps, Back Trouble, Radiation therapy, Parkinson's disease. * Surgical History:?Gall Bladd er , Bypass surgery . * Allergies:?N.K.D.A. Objective: * Vitals:?Shoe Size: 8, Wt: 14 0 lbs, Wt-k.5 kg, Ht: 62 in, Ht-cm: 157.48 cm, BMI: 25.6 Index, Body Surface Area: 1.67. * Examination: ???Physical Examination: ?Gen:?The patient is awake, alert, well developed, well groomed and well nourished. They are in no apparent distress. .?Musc:?Foot structure is normal. No abnormalities noted. Muscle strength is 5/5 to all joints bilaterally. There is no pain on palpation. Limited range of motion noted at the first metatarsal phalangeal joint right.?Derm:?Skin is warm and dry, with no rashes, good skin turgor and normal hair distribution. .?Neuro:?Grossly intact to light touch bilateral..?Vasc:?Dorsalis pedis and posterior tibial pulses 2+ bilaterally. No edema noted. Capillary fill time < 3 seconds to all digits. .?X-Ray: ?RIGHT FOOT?There is no evidence of fracture, dislocation, or other osseous lesions. Narrowing of the joint space and dorsal spurring noted at the first metatarsal phalangeal joint. .? Assessment: * Assessment: 1.?Hallux rigidus of right f oot - M20.21 (Primary)?2.?Pain in right toe(s) - M79.674? Plan: * Treatment: * Billing Information: * Visit Code:? 58343 Office Visit, New Pt., Level 3. * Procedure Codes:? * Sign off status: Completed true * Provider:?Freddy Arana DPM Date: ?01/26/2024 Generated for Aristeo gonzalez/Alexandrea/Vonda on:?09/06/2024 08:49 AM DENTAL OFFICE RECEPTIONIST History and Physical Notes * HPI (History of Present Illness) Category Sub-Category Detail Notes Category Not es HPI New Complaint Patient presents for a new patient consultation. Patient complains of an issue to the top of his right foot. He states he has had a painful knot for over a year. He has been seeing a painting manager for a year and was told it would help with the pain in his foot, but it hasn't helped. Patient denies any injury. MA: jerome He states that the pain is not in the foot, but on the lateral leg Examination Category Sub-Category Detail Notes Category Not es X-Ray RIGHT FOOT There is no evid ence of fracture, dislocation, or other osseous lesions. Narrowing of the joint space and dorsal spurring noted at the first metatarsal phalangeal joint. Physical Examination Gen: The patient is awake, alert, well developed, well groomed and well nourished. They are in no apparent distress. Vasc: Dorsalis pedis and p osterior tibial pulses 2+ bilaterally. No edema noted. Capillary fill time < 3 seconds to all digits. Neuro: Grossly intact to li ght touch bilateral. Musc: Foot structure is no rmal. No abnormalities noted. Muscle strength is 5/5 to all joints bilaterally. There is no pain on palpation. Limited range of motion noted at the first metatarsal phalangeal joint right Derm: Skin is warm and dry , with no rashes, good skin turgor and normal hair distribution.
--- OUTSIDE RECORDS SUMMARY | 2024-09-06 08:49 | XMS_ITS | Clinical Summary ---
Author Organization [facility] [address] Address [address] [place] [address] Care Team Providers Care Technical Professional Name Role Phone Live Leroy MD Primary [...] day 0 2 Active vit A,C and H-axwcmr-axscxp ls (VISION FORMULA, WITH LUTEIN,) 1,000 unit-200 [...] stenosis 05/01/2020 Coronary artery disease invo lving [place] coronary artery of [place] heart without angina pectoris 06/14/2017 Hx of CABG 06/14/2017 Surgical History Surgery Date Site/Laterality Comments CATARACT EXTRACTION Medical History Medical History Date Comments Hx Other Medical Hepatitis Coronary artery disease V tach (HCC) Family History Relation Name Status Comments Father Mother Social History Tobacco Use Types Packs/Day Years Used Date Smoking Tobacco: Never Smokeless Tobacco: Never Tobacco Cessation:Counseling Given: Not Answered Alcohol Use Standard Drinks/Week Comments No 0 (1 standard drink = 0.6 oz pur e alcohol) Sex and Gender Information Value Date Recorded Sex Assigned at Not on file 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 Gender Identity Not on file Sexual Orientation Not on file Obstetrics History Last Filed Vital Signs Vital Sign Reading [...] 03/15/2024 8:00 AM CDT Plan of Treatment Health Maintenance Due Date Last Done Comments Depression Screening 1935 Fall Risk Assessment 1935 DTaP/Tdap/Td Vaccine (1 - Tdap) 1948 Hepatitis B Screening 1955 Zoster Vaccine (1 of 2) 1987 Pneumococcal vaccine 65+ (1 of 1 - PCV) 2002 Well Visit 65+ 2002 Influenza Vaccine (#1) 2024 05/17/2020 Insurance MEDICARE [employer] O[employer] MEDICARE [employer] Care Teams Technical Professional Relationship Specialty Start Date End Date Live Leroy MD [address] [place] [address] PCP - General 05/18/12
--- OUTSIDE RECORDS SUMMARY | 2024-09-06 08:50 | XMS_ITS | Patient Health Record ---
Author Organization [facility] Address [address] [place], [place] [id number] Care Team Providers Care Pilot Captain Name Role Phone FREDDY DUBOIS Unavailable [phone] Kumar Diogenes Unavailable Unavailable Allergies No Known Allergies Reason For Referral No Information Vital Signs Height-cm 157.48 cm 01/26/2024 Weight-kg 63.5 kg 01/26/2024 Height 62 in 01/26/2024 Weight 140 lbs 01/26/2024 BMI 25.6 kg/m2 01/26/2024 Encounters Encounter Location Date Provider Diagnosis [facility] [address] [place], [place] [id number] 01/26/2024 FREDDY JAINMARILYNN Hallux rigidus of right foot M20.21 and Pain in right toe(s) M79.674 [facility] [address] [place], [place] [id number] 01/24/2024 Assessments Encounter Date Diagnosis (ICD Code) Assessment Notes Treatment Notes Treatment Clinical Notes Section Notes 01/26/2024 Pain in right toe(s) (ICD-10 - M79.674) 01/26/2024 Hallux rigidus of right foot (ICD-10 - M20.21) 01/26/2024 Other Recommended he return to his spray ii painter for treatment Plan Of Treatment No Information Insurance Providers Payer Name Payer Address Payer Phone Subscriber Number Group Number Insured Name Patient Relationship to Insured Coverage Start Date Coverage End Date Medicare Part B [facility] [address] [place] [phone] [id number] ALISE MARTÍNEZ Self - patient is the insured [facility] ([facility]) ATTN CLAIMS [address] [place] [address] [id number] ALISE MARTÍNEZ Self - patient is the insured Medical (General) History Medical History History ICD Code kidney stones neuropathy stroke skin cancer Leg/Feet cramps Back Trouble Radiation therapy Parkinson's disease Surgical History Surgery Date(Month/Year) Gall Bladder Bypass surgery
== END 2024-09-01 10:08 | disposition home or self-care (01) ==
PROVIDERS: PCP Emergency Medicine; Visit Provider Emergency Medicine
DX: E78.5 Hyperlipidemia, unspecified (principal); E55.9 Vitamin D deficiency, unspecified
CPT/HCPCS: 36415; 80053; 80061; 82306

== ENCOUNTER 2024-10-11 08:13 | Outpatient (CLI) | payer MEDICARE, BC, SELFPAY | END 2024-10-11 08:14 | disposition home or self-care (01) | PROVIDERS: PCP Emergency Medicine; Visit Provider Urology | DX: N20.2 Calculus of kidney with calculus of ureter (principal) | CPT/HCPCS: 74018 ==

== ENCOUNTER 2025-01-02 08:18 | Outpatient (CLI) | payer MEDICARE, BC, SELFPAY ==
--- OUTSIDE RECORDS SUMMARY | 2025-01-02 08:59 | XMS_ITS | Clinical Summary ---
Author Organization [facility] [address] Address [address] [place] [address] Care Team Providers Care Burring Wheel Operator Name Role Phone Live Leroy MD Primary [...] Patient taking differently:2 mgoral Nightly, Reported on 11/19/2024 aspirin (ASPIRIN LOW DOSE) 81 mg tablet take 1 Tablet (81MG) by oral route every day 0 2 Active vit A,C and K-gzasrx-okxbmu ls (VISION FORMULA, WITH LUTEIN,) 1,000 unit-200 mg-60 unit-2 mg tablet 0 0 4 Active atorvastatin (LIPITOR) 10 mg tablet take 1 tablet by oral route every other day 0 4 Active cyanocobalamin- salcaprozat sod 1,000-100 mcg-mg tablet Take by mouth Ac tive carbidopa-levod opa (SINEMET) 25-100 mg per tablet 2 tablets four times daily Active magnesium gluconate 200 mg tablet 1.25 tablets (250 mg total) 3 Active cholecalciferol 400 unit capsule 5,000 Units Active metoprolol XL (TOPROL-XL) 25 mg extended release tablet Take 1 tablet by mouth once daily 90 tablet 2 Active cyanocobalamin (Vitamin B-12) 1,000 mcg tabletIndicatio ns:Prevention of Vitamin B12 Deficiency Take 1 tablet (1,000 mcg total) by mouth daily Active Active Problems Problem Noted Date Diagnosed Date Chest pain 05/01/2020 Nonrheumatic aortic valve stenosis 05/01/2020 Coronary artery disease invo lving [place] coronary artery of [place] heart without angina pectoris 06/14/2017 Hx of CABG 06/14/2017 Encounters Date Type Department Care Team Description 11/19/2024 8:15 AM CDT Office Visit [facility] Cardiology [address] [place] [address] Live Shaw MD Hx of CABG (Primary Dx); Nonrheumatic aortic valve stenosis from Last 3 Months Surgical History Surgery Date Site/Laterality Comments CATARACT [...] on file 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 Gender Identity Not on file Sexual Orientation Not on file Obstetrics History Last Filed Vital Signs Vital Sign Reading Time Taken Comments Blood Pressure 110/60 11/19/2024 8:36 AM CDT Pulse 75 11/19/2024 8:36 AM CDT Temperature 36.5 C (97.7 F) 05/21/2020 8:17 AM CDT Respiratory Rate 12 06/14/2017 8:09 AM CDT Oxygen Saturation 97% 11/19/2024 8:36 AM CDT Inhaled Oxygen Concentration - - Weight 63 kg (138 lb 12.8 oz) 11/19/2024 8:36 AM CDT Height 157.5 cm (5' 2 ) 11/19/2024 8:36 AM CDT Body Mass Index 25.39 11/19/2024 8:36 AM CDT Plan of Treatment Health Maintenance Due Date Last Done Comments Depression Screening 1935 Fall Risk Assessment 1935 DTaP/Tdap/Td Vaccine (1 - Tdap) 1948 Hepatitis B Screening 1955 Pneumococcal vaccine 65+ (1 of 1 - PCV) 1987 Zoster Vaccine (1 of 2) 1987 Well Visit 65+ 2002 Influenza Vaccine (Season Ended) 2025 05/17/20 20 Insurance MEDICARE [facility] MEDICARE [employer] OOS Care Teams Burring Wheel Operator Relationship Specialty Start Date End Date Live Leroy MD [address] [place], [place] [id number] PCP - General 05/18/12
--- OUTSIDE RECORDS SUMMARY | 2025-01-02 08:59 | XMS_ITS | Clinical Summary ---
Author Organization [facility] Address [address] [place] [address] Phone Care Team Providers Care Cell Repairer Name Role Phone Unavailable Primary Care Provider Unavailabl e Allergies No known active allergies Medications carbidopa-levodo pa (PARCOPA) 25-100 mg Tablet, [...] Encounters Date Type Department Care Team Description 10/31/2024 External Device Data [facility] ABSTRACTION Provider, Abstract 10/30/2024 12:09 PM CDT - 10/30/2024 11:59 PM CDT Hospital Encounter [facility] Radiology [address] [place] [phone] Michelle Chaidez MD Discharge Disposition: Home or Self Care 10/30/2024 11:30 AM CDT Office Visit [facility] Neurosurgery - [facility] [address] [place] [address] Michelle Chaidez MD Lumbar spondylosis (Primary Dx); Foraminal stenosis of lumbar region; Stenosis of lateral recess of lumbar spine; Degeneration of intervertebral disc of lumbar region with discogenic back pain and lower extremity pain 10/30/2024 Orders Only [facility] Neurosurgery - [facility] [address] [place] [address] Michelle Chaidez MD Lumbar radiculopathy (Primary Dx); Lumbar spondylosis 10/20/2024 External Device Data [facility] ABSTRACTION Provider, Abstract 10/19/2024 External Device Data [facility] ABSTRACTION Provider, Abstract from Last 3 Months Family History Medical [...] Sign Reading Time Taken Comments Blood Pressure 166/73 10/30/2024 11:28 AM CDT Pulse 62 10/30/2024 11:28 AM CDT Temperature 36.7 C (98.1 F) 10/30/2024 11:28 AM CDT Respiratory Rate - - Oxygen Saturation 96% 10/30/2024 11: 28 AM CDT Inhaled Oxygen Concentration - - Weight 62.1 kg (136 lb 12.8 oz) 025 11:28 AM CDT Height 157.5 cm (5' 2 ) 10/30/2024 11:2 8 AM CDT Body Mass Index 25.02 10/30/2024 11:28 AM CDT Plan of Treatment Health Maintenance Due Date Last Done Comments DTAP/TDAP/TD VACCINES (1 - Tdap) 1956 PNEUMOCOCCAL VACCINE 50+ YEARS (1 of 1 - PCV) 04/18/19 87 ZOSTER VACCINE (1 of 2) 1987 RSV VACCINE (60+ or ) (1 - 1-dose 75+ series) 2012 INFLUENZA VACCINE (#1) 2024 Procedures Procedure Name Priority Date/Time Associated Diagnosis Comments XR LUMBAR SPINE 4+ VW Routine 10/30/2024 12:27 PM CDT Lumbar radiculopathy Lumbar spondylosis from Last 3 Months Results * XR LUMBAR SPINE 4+ VW (10/30/2024 12:27 PM CDT) Anatomical Region Laterality Modality Spine Computed Radiogr aphy 10/30/2024 12:2 7 PM CDT Impressions 10/30/2024 1:54 PM CDT IMPRESSION: 1. No acute abnormality. No abnormal translation on flexion/extension views. 2. Lumbar spondylosis. DICTATION LOCATION: Location 1 - [facility] 10/30/2024 1:54 PM CDT EXAM: XR LUMBAR SPINE 4+ VW DATE: 10/30/2024 12:27 PM HISTORY: Lumbar radiculopathy; Lumbar spondylosis TECHNIQUE: Radiographs were performed of the lumbar spine COMPARISON: 05/11/2024 FINDINGS: Vertebral bodies are normal in height. Levocurvature of the lumbar spine with prominent left lateral syndesmophyte at L2-L3. Retrolisthesis of L2 on L3, measuring 7 mm. Grade 1 anterolisthesis of L5 on S1, measuring 5 mm. No abnormal translation on flexion/extension views. Multilevel disc space height loss, worst at L2-L3, L3-L4 and L5-S1. Moderate to severe facet arthropathy in the lower lumbar spine. Procedure Note Alfredo Mustafa IV, MD - 10/30/2024 EXAM: XR LUMBAR SPINE 4+ VW DATE: 10/30/2024 12:27 PM HISTORY: Lumbar radiculopathy; Lumbar spondylosis TECHNIQUE: Radiographs were performed of the lumbar spine COMPARISON: 05/11/2024 FINDINGS: Vertebral bodies are normal in height. Levocurvature of the lumbar spine with prominent left lateral syndesmophyte at L2-L3. Retrolisthesis of L2 on L3, measuring 7 mm. Grade 1 anterolisthesis of L5 on S1, measuring 5 mm. No abnormal translation on flexion/extension views. Multilevel disc space height loss, worst at L2-L3, L3-L4 and L5-S1. Moderate to severe facet arthropathy in the lower lumbar spine. IMPRESSION: 1. No acute abnormality. No abnormal translation on flexion/extension views. 2. Lumbar spondylosis. DICTATION LOCATION: Location 1 - [facility] Michelle Chaidez MD DIAGNOSTIC IMAGING ORDERABLES F inal Result from Last 3 Months Insurance MEDICARE PART A AND B [facility] Schedule [employer] [facility]
--- OUTSIDE RECORDS SUMMARY | 2025-01-02 08:59 | XMS_ITS | Referral Summary ---
Author Organization [facility] [address] [facility] [address] Address [address] [place] [address] Care Team Providers Care Tearer Name Role Phone Live Leroy MD Primary Care Provide r Encounters Date Type Department Care Team Description 11/19/2024 8:15 AM CDT Office Visit [facility] Cardiology [address] [place] [address] Live Shaw MD Hx of CABG (Primary Dx); Nonrheumatic aortic valve stenosis from Last 3 Months Allergies No known active allergies Medications fenofibrate [...] day 0 2 Active vit A,C and P-imjxnx-twndhy ls (VISION FORMULA, WITH LUTEIN,) 1,000 unit-200 [...] by mouth once daily 90 tablet 2 5 Active cyanocobalamin (Vitamin B-12) 1,000 mcg tabletIndicatio ns:Prevention of Vitamin B12 Deficiency Take 1 tablet (1,000 mcg total) by mouth daily Active Active Problems Problem Noted Date Diagnosed Date Chest pain 05/01/2020 Nonrheumatic aortic valve stenosis 05/01/2020 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 06/14/2017 Hx of CABG 06/14/2017 Social History Tobacco Use Types Packs/Day Years Used Date Smoking Tobacco: Never Smokeless Tobacco: Never Tobacco Cessation:Counseling Given: Not Answered Alcohol Use Standard Drinks/Week Comments No 0 (1 standard drink = 0.6 oz pur e alcohol) Sex and Gender Information Value Date Recorded Sex Assigned at Not on file 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
--- OUTSIDE RECORDS SUMMARY | 2025-01-02 08:59 | XMS_ITS | Data Portability ---
Author Organization [place] [facility] [employer], Main Office Address [address] [place] [address] Care Team Providers Care Real Estate Lawyer Name Role Phone SVITLANA CANCINO Primary Care Provider [phone] SVITLANA CANCINO Referring Provider Assessment Encounter Date Assessment Date Assessment LastModified [...] 023 10/22/19 23 [email or web address] 58 [facility] [place], [address] [facility], [place], [address], 3 10:38:12 Medication Orders None recorde d. Patient TargetsNo targets recorded. Patient InstructionsNo instructions recorded. Reason for Referral None Reported. Results Created Date Observation Date Name Description Value Unit Range Abnormal Flag Note LastModifiedBy Organization Detail LastModifiedTime 08/19/19 23 XR, ankle No observ ation record ed. [id number] [facility] [place] [address], [place], [address], 10/14/2022 01:48:18 10/22/19 23 XR, ankle No observ ation record ed. [email or web address] [facility] [place] [address], [address], 10/21/2022 10:38:11 Result Notes None recorded. Problems Name Problem SNOMED Code Status Onset Date Resolution Date Notes Provider Name and Address Organization Details Recorded Time Pain in right sacroiliac joint 1336957909883 9107 Active 2022 Not Available [facility] 3 01:47:48 Pain of right ankle joint 8428476685464 9106 Active 2022 Not Available [facility] 3 01:47:48 Problem Notes None recorded. Procedures Surgical History Date Name Laterality Status Provider Name and Address Organization Details Recorded Time cardiopulmonary bypass operation completed Not Available [facility] 10/14/2022 01:47:27 Imaging Results Imaging Date Name Status LastModified by Organiz ation Details LastModified Time 08/19/2022 XR, ankle completed [id number] [facility] [place] [address], [place], [address], 10/14/2022 01:48:18 10/21/2022 XR, ankle completed [email or web address] [facility] [place] [address], [address], 10/21/2022 10:38:11 Procedure Notes None recorded. Medical [...] Updated DateTime 08/19/2022 27.3 kg/m2 162.56 cm 36912.19 g Not Available [facility] 10/14/2022 01:47:39 Date Recorded Body mass index (BMI) Body height Body weight Provider Name and Address Organization Details Last Updated DateTime 09/20/2022 27.5 kg/m2 162.56 cm 65701.78 g Not Available [facility], [facility] 10/14/2022 01:47:39 Date Recorded Body height Body mass index (BMI) Body weight Provider Name and Address Organization Details Last Updated DateTime 10/21/2022 162.56 cm 27.5 kg/m2 80493.78 g NELL Hdez [place] [facility] [facility] 10/21/2022 09:05:13 Social History None recorded. Functional Status Question Answer Note LastModified by Organizat ion Details LastModified Time What is your level of alcohol consumption? None [id number] Information not available 10/14/2022 Mental Status None recorded. Family History Relationship Description Onset Age of this Age Resolved Age Notes LastModified by Organization Details LastModified Time Mother Heart disease [id number] Not available 10/14/2022 01:47:28 Mother Family history of malignant neoplasm [id number] Not available 10/14/2022 01:47:28 Medical History Condition Response CANCER: SPECIFY Y HEPATITIS / LIVER DISEASE Y Past Encounters Encounter ID Performer Location Encounter Start Date Encounter Closed Date Diagnosis/Indication Diagnosis SNOMED-CT Code Diagnosis ICD10 Code Diagnosis Note [id number] Rony Hutson MD [facility] [place] [address] [place] [address] 08/19/2022 00:00:00 08/19/2022 14:13:58 [id number] Rony Hutson MD [facility] [place] [address] [place] [address] 09/20/2022 00:00:00 09/20/2022 09:09:58 [id number] Rony Hutson MD [facility] [place] [address] [facility] [address] [place] [address] 10/21/2022 09:01:42 10/21/2022 10:11:06 Pain in right sacroiliac joint 0561598425 9035990 M53.3 Pain of ri ght ankle joint 8452101108 2205399 M25.571 Health Concerns Section Related Observation LastModified by Organization Detai ls LastModified Time None Recorded Concern Status LastModified by Organization Details LastModified Time None Recorded Advance Directives Directive None Recorded Payers Encounter Date Sequence Insurance Name Policy Number Policy Plasencia Covered Member ID Plasencia Member ID Guarantor Name 10/21/2022 1 [place] Trav Murrieta [id number] 3 Trav Murrieta 10/21/2022 2 [place] [id number] Trav Murrieta [id number] Trav Murrieta Notes Date Note Type Note [...] probably from the ulceration. Rony Hutson MD [address] [place] [address], [place], [address], [place] [facility] 10/21/2022 10:38:22
[2025-01-02 10:00] LABS: Alanine Aminotransferase 8 U/L (6-50); Albumin Level 3.9 g/dL (3.5-5.1); Alkaline Phosphatase 65 U/L (38-126); Anion Gap 6 mmol/L (4-12); Aspartate Amino Transferase 27 U/L (17-59); Bilirubin,Total 1.2 mg/dL (0.2-1.3); Blood Urea Nitrogen 24 mg/dL (9-20); Calcium 9.4 mg/dL (8.4-10.2); Carbon Dioxide 29 mmol/L (22-30); Chloride 106 mmol/L (98-107); Cholesterol 95 mg/dL (0-200); Estimated Glomerular Filt Rate 56; Glucose 97 mg/dL (65-110); HDL Direct 39 mg/dL; Sodium 141 mmol/L (137-145); Triglycerides 57 mg/dL (<150)
[2025-01-02 10:09] LABS: Vitamin D 25 Hydroxy 94.9 ng/mL
[2025-01-02 10:12] LABS: LDL Cholesterol Direct 32 mg/dL
== END 2025-01-02 08:19 | disposition home or self-care (01) ==
LOC: ANHLAB 08:19
PROVIDERS: PCP Emergency Medicine; Visit Provider Emergency Medicine
DX: E55.9 Vitamin D deficiency, unspecified (principal); E78.5 Hyperlipidemia, unspecified
CPT/HCPCS: 36415; 80053; 80061; 82306

== ENCOUNTER 2025-01-28 12:30 | Outpatient (RCR) | payer MEDICARE, BC, SELFPAY ==
--- NOTE | 2024-12-24 16:38 | OPREHPOC ---
Outpatient Therapy Plan of Care This is a Multidisciplinary Plan of Care that may contain components documented by all disciplines (PT, OT, and ST.) PT Problem 1 PT Problem #1 Knowledge Deficit PT Goal 1 Goal / Goal Update *independent with HEP Target Visit 10 PT Problem 2 PT Problem #2 Pain PT Goal 1 Goal / Goal Update * pt report pain rating of 7/10 at worst Target Visit 10 PT Problem 3 PT Problem #3 Impaired Strength PT Goal 1 Goal / Goal Update increase trunk and hip strength to improve stability to spine: 1* static stand without UE support x 90 seconds 2* pt perform 20 reps of mat R and L strengthening LE exercises Target Visit 10 PT Problem 4 PT Problem #4 Impaired Functional Mobility PT Goal 1 Goal / Goal Update 1* 2 minute walking test distance with cane of 350 ' 2* pt report standing/walking tolerance Target Visit 10 PT Problem 5 PT Problem #5 Impaired Flexibility PT Goal 1 Goal / Goal Update *improve hamstring length to decrease pull on lumbar hips supine SLR to 45' 1* R 2* L Target Visit 10
--- NOTE | 2024-12-24 16:38 | PTOPEVAL1 ---
Assessment and note entered by Claudette Larson, PT Evaluation Information Assessment Status Evaluation ICD-10 Condition Codes (PT) Pain in low back M54.50,Radiculopathy, lumbar region M54.16,Difficulty Walking R26.2, Abnormalities of gait and mobility R26.9,Weakness R53.1 Onset about 2 years ago Subjective Information chronic pain in back and R leg, worse over past 2 years, no longer able to carrera or fish; have had pain management injections & nerve ablations, previous PT- nothing helped; saw ortho dr for hip and leg pain, foot dr--keep referring him to back dr; have seen back dr in [facility], told him she could not do surgery for him-- no longer follow with her ; have had 3 falls in the past 6 months--loss of balance with walking, R leg gives out and fall to his L side and backwards; activity: home with ; use cane, wheeled walker for mobility; independent with self care and light home tasks; family assist with lawn work; Goal: less pain and walk better; Reported Pain Level Pain Score Self Report Additional Pain Score Comments pain range in the past week:0-10/10; low back, into R LE to big toe increase pain: soon as stand up; stand/walk 10 minutes at most decrease pain: heating pad, sit down sleeping Ok; does not take any pain meds for back Assessment PT Clinical Summary Trav has the diagnosis of back and R leg pain. Radicular pain is intermittent into his R LE to toes. He reports chronic back pain and has had falls due to R leg giving out. He has been seen by pain management, ortho dr, neurologist and previous PT treatments. The back surgeon told him he was not a surgical candidate. Self assessment with Back index rating of 56% limitation in activity level. He is at home with his and uses a cane or wheeled walker for walking. Standing is limited to about 10 minutes, then have to sit down. Medical history includes: Parkinson's, chronic back pain, CABG. With the evaluation: he has poor standing posture with trunk, hip and knee flexion, R LE ER, side bend of trunk; static standing time of 38 seconds and then had to sit down; decrease strength of hips and LE's; 2 minute walking test distance of 280' with cane and pain increase to 8/ 10; tightness of hamstrings bilateral. Skilled PT services are indicated for modalities to decrease pain, therapeutic exercises to increase trunk and LE strength and hamstring length, with education for HEP and posture. Plan of Care Interventions Electrical Stimulation,Gait Training,Hot Pack/Cold Pack,Manual Therapy,Neuro Re-education,Patient/ Caregiver Education,Therapeutic Activities, Therapeutic Exercise,Ultrasound,Other Other Interventions taping PT Services Indicated Yes Treatment Frequency and 1-2x/wk for 10 visits Duration These treatments will address the objective and functional deficits as defined above. The patient will be advanced safely and appropriately in order for the patient to progress towards his/her prior level of function. Additional exercises will be introduced and as well as a comprehensive home exercise program upon discharge, if needed, ?to ensure carryover of functional gains achieved in the clinic. This treatment plan has been reviewed and agreement upon by the patient.
--- NOTE | 2025-01-28 13:27 | OPREHPOC ---
Outpatient Therapy Plan of Care This is a Multidisciplinary Plan of Care that may contain components documented by all disciplines (PT, OT, and ST.) PT Problem 1 PT Problem #1 Knowledge Deficit PT Goal 1 Goal / Goal Update *independent with HEP 01-28-25 d/c goal met Target Visit 10 Progress Met PT Problem 2 PT Problem #2 Pain PT Goal 1 Goal / Goal Update * pt report pain rating of 7/10 at worst 01-28-25 d/c goal not met, 10/10 at worst Target Visit 10 Progress Not Met PT Problem 3 PT Problem #3 Impaired Strength PT Goal 1 Goal / Goal Update increase trunk and hip strength to improve stability to spine: 1* static stand without UE support x 90 seconds 2* pt perform 20 reps of mat R and L strengthening LE exercises 01-28-25 d/c goals met Target Visit 10 Progress Met PT Problem 4 PT Problem #4 Impaired Functional Mobility PT Goal 1 Goal / Goal Update 1* 2 minute walking test distance with cane of 350 ' 2* pt report standing/walking tolerance of 15 minutes 25 d/c goals not met Target Visit 10 Progress Not Met PT Problem 5 PT Problem #5 Impaired Flexibility PT Goal 1 Goal / Goal Update *improve hamstring length to decrease pull on lumbar hips supine SLR to 45' 1* R 2* L 01-28-25 d/c goals not met: improved #1 35/ L 40' Target Visit 10
--- NOTE | 2025-01-28 13:27 | PTOPDC ---
Assessment and note entered by Claudette Larson, PT Assessment Status Discharge ICD-10 Condition Codes (PT) Pain in low back M54.50,Radiculopathy, lumbar region M54.16,Difficulty Walking R26.2, Abnormalities of gait and mobility R26.9,Weakness R53.1 Onset about 2 years ago Subjective Information back and leg still hurt, but am stronger and balance is better; have not had any fall at home, tend to lose balance going backwards; have been doing the exercises at home; use the cane in the house and when go out, use the walker; standing and activity about 10 minutes; think should be done with therapy; Reported Pain Level Pain Score self Report Additional Pain Score Comments pain range in the past week 1-10/10; low back and into R LE to toes; Assessment PT Clinical Summary Trav has received 10 PT sessions. Compared to the initial evaluation: pain from 0-10/10 to 1-10/10; self assessment with Back Index from 56 to % limitation in activity level; slight increase in R and L hamstring length; increase strength of R and L LE with mat exercises; 2 minute walking test distance from 280 to 290' with use of cane; has not had any falls since starting PT; uses wheeled walker or cane for ambulation; education for HEP completed. The goals were partially met. Discharge PT services. He is to continue with his HEP and using an assistive device for walking, for safety and pain decrease. Plan of Care PT Services Indicated No
== END 2025-01-29 09:26 | disposition home or self-care (01) ==
LOC: ANHPT 12:30
PROVIDERS: PCP Emergency Medicine; Visit Provider Psychiatry & Neurology Neurology
DX: M54.9 Dorsalgia, unspecified (principal); G89.29 Other chronic pain; M79.604 Pain in right leg
CPT/HCPCS: 97110; 97140; 97161; 97530

== ENCOUNTER 2025-03-07 10:23 | Emergency (ER) | payer MEDICARE, BC, SELFPAY ==
[2025-03-07] VITALS (12 sets, daily range): BP systolic 147–151; BP diastolic 73–95; PULSE 53–73; RESP 7–19; TEMP 36.4; O2SAT 95–99
--- NOTE | ~2025-03-07 | CT_ITS ---
EXAMINATION: CT brain wo con DATE: 03/07/2025 10:58 INDICATION: Sudden onset of dizziness TECHNIQUE: Computed tomography (CT) of the head was performed without intravenous contrast. The dose- length product was 605.33 mGy-cm. Automated exposure control and iterative reconstruction technique w ere employed. COMPARISON: None FINDINGS: Generalized atrophy. There are scattered mild periventricular and subcortical white matter changes, most likely related to small vessel ischemic disease (microangiopathy). No ventriculomegaly or midline shift. Basilar cisterns are patent. There is intracranial atherosclerosis. No acute intrac ranial hemorrhage, infarction, mass or mass effect. Paranasal sinuses and mastoids are pneumatized. N o depressed skull fractures. IMPRESSION: 1. No acute intracranial abnormality. Reviewed, dictated and finalized at location A.
--- NOTE | ~2025-03-07 | XR_ITS ---
EXAM/PROCEDURE: XR chest 1V portable - 03/07/2025 10:30 CDT HISTORY: 89 years old Male with dizziness, TECHNIQUE: Two view(s) of the chest. COMPARISON: None available. FINDINGS: LUNGS/ PLEURA: No focal consolidation. No appreciable pneumothorax or large pleural effusion. HEART/ MEDIASTINUM: Cardiomediastinal silhouette is normal. Findings of prior median sternotomy are n oted. Fractured sternotomy wires. BONES: Degenerative changes. OTHER: Visualized upper abdomen is unremarkable. IMPRESSION: No acute process. Reviewed, dictated and finalized at location A. IMPRESSION: No acute process.
--- NOTE | 2025-03-07 10:27 | ECG_ITS ---
Test Date: 2025-03-07 10:25:31 Measurements Intervals [place] Rate: 81 P: 64 AK: 225 QRS: -25 QRSD: 125 T: 32 QT: 372 QTc: 433 Interpretive Statements SINUS RHYTHM WITH FIRST DEGREE AV BLOCK PROBABLE LATERAL MYOCARDIAL INFARCTION , OF INDETERMINATE AGE [35 ms Q WAVE IN I/aVL/V5/V6] No previous ECG available for comparison Electronically Signed On 03-08-2025 15:47:49 CDT by Alphonse Hsu M.D.
[2025-03-07] MEDS: ONDANSETRON INJ 4 MG/2 ML VIAL IV PUSH (10:33)
[2025-03-07] MEDS: MECLIZINE HCL 25 MG TABLET PO (10:33)
--- NOTE | 2025-03-07 10:51 | PC.NURSE ---
Stemi 10:14 Sage 10:14 O/H 10:14 Dr Hsu
[2025-03-07 10:57] LABS: Hematocrit 35.0 % (42.0-52.0); Hemoglobin 11.3 g/dL (14.0-18.0); Immature Granulocyte Percent A 0.2 % (0-0.5); Immature Platelet Fraction Pct 5.4 % (0.9-11.2); Lymphocytes Absolute Auto 1.88 K/mm3 (0.9-3.2); Mean Corpuscular HGB Conc 32.3 g/dl (32-36); Mean Corpuscular Hemoglobin 30.3 pg (26-34); Mean Corpuscular Volume 93.8 fl (80-100); Nucleated Red Blood Cells Absolute Auto 0.000 K/mm3 (0.0-0.012); Nucleated Red Blood Cells Perc 0.0 % (0.0-0.2); Platelet Count Result 85 k/mm3 (150-375); Red Blood Count 3.73 M/mm3 (4.6-6.20); White Blood Count 5.6 K/mm3 (4.5-10.0)
[2025-03-07 11:08] LABS: INR 1.1; Prothrombin Time 14.6 Seconds (11.1-14.7)
[2025-03-07 11:09] LABS: Partial Thromboplastin Time 25.4 Seconds (22.3-36.8)
[2025-03-07 11:14] LABS: Albumin Level 3.7 g/dL (3.5-5.1); Alkaline Phosphatase 78 U/L (38-126); Anion Gap 6 mmol/L (4-12); Aspartate Amino Transferase 29 U/L (17-59); Bilirubin,Total 0.7 mg/dL (0.2-1.3); Blood Urea Nitrogen 28 mg/dL (9-20); Calcium 9.4 mg/dL (8.4-10.2); Carbon Dioxide 25 mmol/L (22-30); Chloride 105 mmol/L (98-107); Estimated CRCL calculation 37 ml/min; Estimated Glomerular Filt Rate > 60; Glucose 114 mg/dL (65-110); Potassium 3.8 mmol/L (3.4-5.0); Sodium 136 mmol/L (137-145); Total Protein 6.2 g/dL (6.3-8.2)
--- OUTSIDE RECORDS SUMMARY | 2025-03-07 11:17 | XMS_ITS | Patient Health Record ---
Author Organization [facility] Address [address] [place], [place] [address] Care Team Providers Care Post Adoption Coordinator Name Role Phone FREDDY DUBOIS Unavailable [phone] Diogenes Heath Unavailable Unavailable Allergies No Known Allergies Reason For Referral No Information Plan Of Treatment No Information Insurance Providers Payer Name Payer Address Payer Phone Subscriber Number Group Number Insured Name Patient Relationship to Insured Coverage Start Date Coverage End Date Medicare Part B [place] [address] [place] [address] [id number] ALISE MARTÍNEZ Self - patient is the insured [facility] ATTN CLAIMS [address] [place] [address] [id number] ALISE MARTÍNEZ Self - patient is the insured Medical (General) History Medical History History ICD Code kidney stones neuropathy stroke skin cancer Leg/Feet cramps Back Trouble Radiation therapy Parkinson's disease Surgical History Surgery Date(Month/Year) Gall Bladder Bypass surgery
--- OUTSIDE RECORDS SUMMARY | 2025-03-07 11:17 | XMS_ITS | Clinical Summary ---
Author Organization [facility] Address [address] [place] [address] Phone Care Team Providers Care Design Director Name Role Phone Unavailable Primary Care Provider [...] Encounters Date Type Department Care Team Description 02/27/2025 External Device Data STL ABSTRACTION Provider, Abstract 02/26/2025 External Device Data STL ABSTRACTION Provider, Abstract 01/29/2025 External Device Data STL ABSTRACTION Provider, Abstract 01/08/2025 External Device Data STL ABSTRACTION Provider, Abstract 01/03/2025 External Device Data STL ABSTRACTION Provider, Abstract 01/02/2025 External Device Data STL ABSTRACTION Provider, Abstract 01/01/2025 External Device Data STL ABSTRACTION Provider, Abstract [...] 11:28 AM CDT Height 157.5 cm (5' 2) 10/30/2024 11:2 8 AM CDT Body Mass Index 25.02 10/30/2024 11:28 AM CDT Plan of Treatment Health Maintenance Due Date Last Done Comments DTAP/TDAP/TD VACCINES (1 - Tdap) 1956 PNEUMOCOCCAL VACCINE 50+ YEARS (1 of 1 - PCV) 04/18/19 87 ZOSTER VACCINE (1 of 2) 1987 RSV VACCINE (60+ or ) (1 - 1-dose 75+ series) 2012 INFLUENZA VACCINE (#1) 2025 Insurance MEDICARE PART A AND B [facility] BLUE ACCESS CHOICE [facility]
--- OUTSIDE RECORDS SUMMARY | 2025-03-07 11:17 | XMS_ITS | Clinical Summary ---
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 Gender Identity Not on file Sexual Orientation [...] 8:36 AM CDT Height 157.5 cm (5' 2) 11/19/2024 8:36 AM CDT Body Mass Index 25.39 11/19/2024 8:36 AM CDT Plan of Treatment Health Maintenance Due Date Last Done Comments Depression Screening 1937 Fall Risk Assessment 1937 DTaP/Tdap/Td Vaccine (1 - Tdap) 1948 Hepatitis B Screening 1955 Pneumococcal vaccine 65+ (1 of 1 - PCV) 1987 Zoster Vaccine (1 of 2) 1987 Well Visit 65+ 2002 Influenza Vaccine (#1) 2025 05/17/2020 Insurance MEDICARE [facility] OOS MEDICARE [facility] OOS Care Teams Veterinarian Relationship Specialty Start Date End Date Live Leroy MD [address] [place], [place] [phone] PCP - General 05/18/12
--- OUTSIDE RECORDS SUMMARY | 2025-03-07 11:17 | XMS_ITS | Data Portability ---
Author Organization [facility] [employer], Main Office Address [address] [place] [address] Care Team Providers Care Netsuite Developer Name Role Phone SVITLANA CANCINO Primary Care Provider SVITLANA CANCINO Referring Provider Assessment Encounter Date [...] 023 10/22/19 23 [email or web address] [facility] [place], [facility] [address], [place], [address], 3 10:38:12 Medication Orders None recorde d. Patient TargetsNo targets recorded. Patient InstructionsNo instructions recorded. Reason for Referral None Reported. Results Created Date Observation Date Name Description Value Unit Range Abnormal Flag Note LastModifiedBy Organization Detail LastModifiedTime 08/19/19 23 XR, ankle No observ ation record ed. [id number] [facility] [place] [address], [place], [address], 10/14/2022 01:48:18 10/22/19 23 XR, ankle No observ ation record ed. [id number] [facility] [place] [address], [place], [address], 10/21/2022 10:38:11 Result Notes None recorded. Problems Name Problem SNOMED Code Status Onset Date Resolution Date Notes Provider Name and Address Organization Details Recorded Time Pain in right sacroiliac joint 3520228797631 9107 Active 2022 Not Available [facility] 3 01:47:48 Pain of right ankle joint 4733215801608 9106 Active 2022 Not Available [facility] 3 01:47:48 Problem Notes None recorded. Procedures Surgical History Date Name Laterality Status Provider Name and Address Organization Details Recorded Time cardiopulmonary bypass operation completed Not Available [facility] 10/14/2022 01:47:27 Imaging Results None recorded. Procedure Notes None recorded. Medical Equipment None [...] Updated DateTime 08/19/2022 27.3 kg/m2 162.56 cm 74836.19 g Not Available [facility] 10/14/2022 01:47:39 Date Recorded Body mass index (BMI) Body height Body weight Provider Name and Address Organization Details Last Updated DateTime 09/20/2022 27.5 kg/m2 162.56 cm 81288.78 g Not Available [facility] 10/14/2022 01:47:39 Date Recorded Body height Body mass index (BMI) Body weight Provider Name and Address Organization Details Last Updated DateTime 10/21/2022 162.56 cm 27.5 kg/m2 63788.78 g Paco Dayanara [place] [facility] 10/21/2022 09:05:13 Social History None recorded. Functional Status Question Answer Note LastModified by Organizat ion Details LastModified Time What is your level of alcohol consumption? None [id number] Information not available 10/14/2022 Mental Status None recorded. Family History Relationship Description Onset Age of this Age Resolved Age Notes LastModified by Organization Details LastModified Time Mother Heart disease [id number] Not available 10/14/2022 01:47:28 Mother Family history of malignant neoplasm [id number] Not available 10/14/2022 01:47:28 Medical History Condition Response HEPATITIS / LIVER DISEASE Y CANCER: SPECIFY Y Past Encounters Encounter ID Performer Location Encounter Start Date Encounter Closed Date Diagnosis/Indication Diagnosis SNOMED-CT Code Diagnosis ICD10 Code Diagnosis Note [id number] Rony Hutson MD [facility] [place] [address] [facility] [address] [place] [address] 08/19/2022 00:00:00 08/19/2022 14:13:58 [id number] Rony Hutson MD [facility] [place] [address] [facility] [address] [place] [address] 09/20/2022 00:00:00 09/20/2022 09:09:58 [id number] Rony Hutson MD [facility] [place] [address] [facility] [address] [place] [address] 10/21/2022 09:01:42 10/21/2022 10:11:06 Pain in right sacroiliac joint [id number] 6627879 M53.3 Pain of ri ght ankle joint 4409977330 5057043 M25.571 Health Concerns Section Related Observation LastModified by Organization Detai ls LastModified Time None Recorded Concern Status LastModified by Organization Details LastModified Time None Recorded Advance Directives Directive None Recorded Payers Insurance Date Sequence Insurance Name Policy Number Policy Plasencia Covered Member ID Plasencia Member ID Guarantor Name 10/20/2022 1 [place] Trav Murrieta [id number] 3 Trav Murrieta 10/27/2022 2 [place] [id number] Trav Murrieta [id number] Trav Sealsjasmine Notes Date Note Type Note Provider Name [...] probably from the ulceration. Rony Hutson MD [address] [place] [address], [place], [address], [facility] 10/21/2022 10:38:22
--- OUTSIDE RECORDS SUMMARY | 2025-03-07 11:17 | XMS_ITS | Referral Summary ---
Author Organization [facility] [address] Address [address] [place] [address] Care Team Providers Care Grape Pruner Name Role Phone Live Leroy MD Primary [...] day 0 2 Active vit A,C and Z-jvgodh-skrnta ls (VISION FORMULA, WITH LUTEIN,) 1,000 unit-200 [...] stenosis 05/01/2020 Coronary artery disease invo lving benton coronary artery of benton heart without angina pectoris 06/14/2017 Hx of CABG 06/14/2017 Social History Tobacco Use Types Packs/Day Years Used Date Smoking Tobacco: Never Smokeless Tobacco: Never Tobacco Cessation:Counseling Given: Not Answered Alcohol Use Standard Drinks/Week Comments No 0 (1 standard drink = 0.6 oz pur e alcohol) Sex and Gender Information Value Date Recorded Sex Assigned at Not on file 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
[2025-03-07 11:25] LABS: Troponin I < 0.012 ng/mL (0.000-0.034)
--- NOTE | 2025-03-07 11:44 | ED_ITS ---
HPI - Dizziness General Chief Complaint: Recheck/Abnormal Lab/Rx Stated Complaint: stemi Time Seen by Provider: 03/07/25 10:36 History of Present Illness HPI Narrative: Pt awoke this morning with feeling of dizziness that is worse when he sits up or moves head and better when still. Pt is nauseated and vomiting as well. Pt denies CP or SOB or one sided weakness or speech difficulties. Pt has no PAREDES. Related Data Home Medications ?Medication ?Instructions ?Recorded ?Confirmed ?Last Taken ?Type aspirin 81 mg tablet,delayed 81 mg PO 1XD 09/24/19 01/08/25 05/10/22 09:00 History release metoprolol succinate 25 mg 25 mg PO HS 04/08/20 01/08/25 05/09/22 21:00 History tablet,extended release 24 hr magnesium 250 mg tablet 250 mg PO DAILY 01/20/22 01/08/25 05/10/22 09:00 History crrvigum-kgh-SQ 200 mcg-vit K 15 1 tablet PO DAILY 08/31/22 01/08/25 Unknown History mcg-lycope 150 cas-bbavcy-hlnf tablet (Ocuvite Eye Plus Multi) Allergies Allergy/AdvReac Type Severity Reaction Status Date / Time No Known Allergies Allergy Verified 03/07/25 12:12 Review of Systems 2 Review of Systems: All systems reviewed & are unremarkable except as noted in HPI and below PMFSH Past Medical History Medical History Tremor Pain of right lower extremity Parkinsons disease Parkinsons disease Sepsis Bacteremia Acute urinary retention Acute UTI Foot lesion Black tarry stools Upper GI bleed Atherosclerotic heart disease of [place] coronary artery with angina pectoris Benign prostatic hyperplasia with nocturia Body mass index [BMI] 30.0-30.9, adult (09/15/17) Body mass index [BMI] 31.0-31.9, adult (04/28/17) Body mass index [BMI] 32.0-32.9, adult (08/21/15) Complete tear of right rotator cuff Enlarged prostate without lower urinary tract symptoms (luts) Gastro-esophageal reflux disease without esophagitis Hematuria Nocturia Right arm pain Right shoulder pain Sinusitis chronic, frontal Tear of biceps tendon Tear of right rotator cuff Vitamin D deficiency Encounter for colonoscopy due to history of colonic polyp Hyperlipidemia Hypertension Surgical History Surgical History S/P CABG x 5 Family History Family History Mother Family history of malignant neoplasm Sibling Family history of congenital heart disease Family history of heart disease in male family member before age 55 Father Family history of chronic obstructive pulmonary disease Family history of emphysema Other Diabetes mellitus Family history of cardiovascular disease Hypertension Social History Social History (Updated 01/08/25 @ 09:39 by Em Ramos) Smoking status: Never smoker Second hand tobacco smoke exposure: No Alcohol intake: never Substance use: never Substance use type: does not use Do You Feel Safe in your Home?: Yes Lack of Transportation: No Lack of Food: Never True Current Housing: I Have Housing Concerned About Future Housing: No Difficulty Paying Gas/Electric Bills: No Difficulty Paying for Meds: No Currently Unemployed: No Education: High School Diploma/GED Difficulty w/ Childcare or Family Care: No Living arrangements: with family Occupation/Education: retired Gender identity (if verbalized by the patient): Male Spiritual care concerns: No Exam 2 Const: General: healthy appearing and no acute distress Nutritional Appearance: well nourished Orientation/consciousness: patient oriented x3 Limitations: no limitations HENMT: Head: normal to inspection Mouth: Yes Normal oral and palatal mucosa present Eyes: Pupils: Equal, round and reactive pupils present EOM: EOMs intact bilaterally Neck: Neck: normal visual inspection, no lymphadenopathy and no meningeal signs Resp: Effort & Inspection: normal respiratory effort Auscultation: clear to auscultation bilaterally Cardio: Rate: regular rate Rhythm: regular rhythm GI: GI Palp: Yes Soft to palpation and No Tenderness to palpation present (GI) Auscultation: normal bowel sounds Back/Spine/Pelvis: Back: no CVA tenderness Skin: General skin exam: normal color Wounds: no wounds Neuro: General: patient oriented x3, moves all extremities, no focal motor deficits and CN's II-XI intact bilaterally Cranial nerves: Yes Nystagmus present Speech: normal speech Other: dizziness reproduced by moving head and sitting up some improvement when still. Extrem: General: normal to inspection and no clubbing, cyanosis or edema Psych: Mental Status: mental status grossly normal Affect: normal affect Attitude: cooperative Course Vital Signs Vital signs: Vital Signs Temperature 97.6 F 03/07/25 10:21 Pulse Rate 68 03/07/25 10:21 Respiratory Rate 18 03/07/25 10:21 Blood Pressure 151/95 H 03/07/25 10:21 Pulse Oximetry 97 03/07/25 10:21 Temperature 97.6 F 03/07/25 10:21 Pulse Rate 73 03/07/25 12:46 Respiratory Rate 16 03/07/25 12:46 Blood Pressure 150/77 H 03/07/25 12:46 Pulse Oximetry 98 03/07/25 12:46 MDM - Dizziness MDM Narrative Medical decision making narrative: Pt presents with dizziness that is worse with head movement and bettere when still but does not completely resolve. Pt had ekg sent with possible stemi by ems. Pt had peaked t in anterior leads and some slight lelvaion in 1 avl but no cp. sent ekg to DR Hsu and given no CP and history said no need to take to lab associate. will check trop and reassess. seems like vertigo but will get CT brain to ruleout sah or stroke given age and hx. Will give some zofran and antivert. Pt feels much better after antivert and zofran. CT neg labs and trop neg. Pt now complaining of chronic right leg pain which is not new and not operative. will send home on antivert, zofran and will try some gabapentin for his leg. Lab Data 03/07/25 10:35 03/07/25 10:35 Labs: Lab Results 03/07/25 Range/Units 10:35 WBC 5.6 (4.5-10.0) K/mm3 RBC 3.73 L (4.6-6.20) M/mm3 Hgb 11.3 L (14.0-18.0) g/dL Hct 35.0 L (42.0-52.0) % MCV 93.8 (80-100) fl MCH 30.3 (26-34) pg MCHC 32.3 (32-36) g/dl RDW 12.8 (11.5-14.5) % Plt Count 85 L (150-375) k/mm3 MPV 11.6 H (7.4-10.4) fl Immature Gran % (Auto) 0.2 (0-0.5) % Neut % (Auto) 57.0 (45.5-73.1) % Lymph % (Auto) 33.8 (18.3-44.2) % [place] % (Auto) 7.4 (2.6-8.5) % Eos % (Auto) 1.1 (0-4.4) % Baso % (Auto) 0.5 (0.2-1.2) % Lymph # (Auto) 1.88 (0.9-3.2) K/mm3 [place] # (Auto) 0.4 (0.1-0.6) K/mm3 Eos # (Auto) 0.1 (0-0.3) K/mm3 Baso # (Auto) 0.0 (0.0-0.1) K/mm3 Abs Immat Gran (auto) 0.01 (0.00-0.031) K/mm3 Absolute Neuts (auto) 3.2 (1.3-6.7) K/mm3 Absolute Nucleated RBC 0.000 (0.0-0.012) K/mm3 Nucleated RBC % 0.0 (0.0-0.2) % % Immature Plt Fraction 5.4 (0.9-11.2) % PT 14.6 (11.1-14.7) Seconds INR 1.1 APTT 25.4 (22.3-36.8) Seconds Sodium 136 L (137-145) mmol/L Potassium 3.8 (3.4-5.0) mmol/L Chloride 105 (98-107) mmol/L Carbon Dioxide 25 (22-30) mmol/L Anion Gap 6 (4-12) mmol/L BUN 28 H (9-20) mg/dL Creatinine 1.10 (0.7-1.3) mg/dL Estim Creat Clear Calc 37 ml/min Estimated GFR > 60 (59 - ) Glucose 114 H (65-110) mg/dL Calcium 9.4 (8.4-10.2) mg/dL Total Bilirubin 0.7 (0.2-1.3) mg/dL AST 29 (17-59) U/L ALT < 6 L (6-50) U/L Alkaline Phosphatase 78 (38-126) U/L Troponin I < 0.012 (0.000-0.034) ng/mL Total Protein 6.2 L (6.3-8.2) g/dL Albumin 3.7 (3.5-5.1) g/dL Discharge Plan Discharge Clinical Impression: Vertigo, Neuralgia Patient Disposition: Home Condition: Improved Instructions: Antibiotic Form, Benign Paroxysmal Positional Vertigo (ED), Peripheral Neuropathy (ED) Patient Language: British Prescriptions: New meclizine 25 mg tablet 25 mg PO QID Qty: 30 0RF ondansetron 4 mg tablet,disintegrating 4 mg PO Q8H PRN (Reason: nausea and vomiting) Qty: 14 0RF gabapentin 300 mg capsule 300 mg PO TID Qty: 60 0RF Rx Instructions: start with 300 mg for 1 day then 300 mg bid for 1 day then tid No Action aspirin 81 mg tablet,delayed release (DR/EC) 81 mg PO 1XD Rx Instructions: 81 mg PO daily in the am; Ocuvite Eye Plus Multi 200-15-150 mcg tablet 1 tablet PO DAILY Rx Instructions: administer with a meal and a large glass of water carbidopa-levodopa [Sinemet] 25-100 mg tablet 2 tablet PO QID Qty: 240 8RF metoprolol succinate 25 mg tablet extended release 24 hr 25 mg PO HS magnesium 250 mg Tablet 250 mg PO DAILY cyanocobalamin (vitamin B-12) [Vitamin B-12] 1,000 mcg Tablet 1,000 mcg PO QAM Qty: 30 0RF cholecalciferol (vitamin D3) 125 mcg (5,000 unit) capsule 125 mcg PO DAILY Qty: 90 3RF atorvastatin 10 mg tablet See Rx Instructions .ROUTE .COMPLEX Qty: 45 2RF Dose Instruction: TAKE 1 TABLET BY MOUTH EVERY OTHER DAY Rx Instructions: TAKE 1 TABLET BY MOUTH EVERY OTHER DAY fenofibric acid (choline) 135 mg capsule,delayed release(DR/EC) See Rx Instructions .ROUTE .COMPLEX Qty: 90 2RF Dose Instruction: Take 1 capsule by mouth once daily at bedtime Rx Instructions: Take 1 capsule by mouth once daily at bedtime lubiprostone 8 mcg capsule See Rx Instructions .ROUTE .COMPLEX Qty: 60 3RF Dose Instruction: Take 1 capsule by mouth twice daily Rx Instructions: Take 1 capsule by mouth twice daily doxazosin 2 mg tablet See Rx Instructions .ROUTE .COMPLEX Qty: 90 2RF Dose Instruction: Take 1 tablet by mouth once daily Rx Instructions: Take 1 tablet by mouth once daily Follow-up/Referrals: Live Leroy MD [Primary Care Provider] -
[2025-03-07 12:11] LABS: Alanine Aminotransferase < 6 U/L (6-50)
== END 2025-03-07 12:47 | disposition home or self-care (01) ==
PROVIDERS: Emergency Provider Emergency Medicine; PCP Emergency Medicine
DX: R42 Dizziness and giddiness (principal); M79.2 Neuralgia and neuritis, unspecified; G20.A1 Parkinson's disease without dyskinesia, without mention of fluctuations; E55.9 Vitamin D deficiency, unspecified; E78.5 Hyperlipidemia, unspecified; I10 Essential (primary) hypertension; Z95.1 Presence of aortocoronary bypass graft; I25.10 Atherosclerotic heart disease of native coronary artery without angina pectoris; K21.9 Gastro-esophageal reflux disease without esophagitis
CPT/HCPCS: 36415; 70450; 71045; 80053; 84484; 85025; 85055; 85610; 85730; 93005; 96374; 99284; A9270; J2405

== ENCOUNTER 2025-04-29 19:03 | Inpatient (IN) | payer MEDICARE, BC, SELFPAY ==
[2025-04-29] VITALS (8 sets, daily range): BP systolic 87–96; BP diastolic 43–49; PULSE 92–97; RESP 13–19; TEMP 36.7–38.4; O2SAT 93–95; BMI 25.6
--- NOTE | ~2025-04-29 | XR_ITS ---
Examination: XR chest 1V Clinical History: AMS,sepsis Comparison: 03/07/2025 Technique: Portable AP Findings: Heart size normal. Increased interstitial markings right lung, and basilar atelectasis. No acute bony abnormality. IMPRESSION: 1. Right lung findings likely rotation and/or soft tissue artifact, but consider PA and lateral films with deep inspiration for better evaluation. Reviewed, dictated and finalized at location R. IMPRESSION: 1. Right lung findings likely rotation and/or soft tissue artifact, but consid er PA and lateral films with deep inspiration for better evaluation.
--- NOTE | ~2025-04-29 | CT_ITS ---
EXAMINATION: CT cervical spine wo con DATE: 04/29/2025 19:54 INDICATION: Fall. TECHNIQUE: Computed tomography (CT) of the cervical spine was performed without intravenous contrast. Automated exposure control and iterative reconstruction technique were employed. The dose-length product was 256.20 mGy-cm. COMPARISON: None FINDINGS: There is 6 degrees levocurvature of cervicothoracic spine. 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 Vertebral body heights are normal. There is 2 mm retrolisthesis of C4 on C5. There is mildly decreased disc height at C2-C3 and severely decreased disc height from C3-C4 through C6-C7. 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 There is multilevel facet joint osteoarthritis, severe at C7-T1. There is mild neural foraminal stenosis at multiple levels on either side. On the right, there is moderate neural foraminal stenosis at C3-C4 and C5-C6. On the left, there is moderate neural foraminal stenosis at C3-C4 and C5-C6. There is mild central canal stenosis at C2-C3, C3-C4, C4-C5, C5-C6, and C6-C7. IMPRESSION: 1. No acute fracture. 2. Severe cervical spondylosis. Reviewed, dictated and finalized at location K.
--- NOTE | ~2025-04-29 | CT_ITS ---
EXAMINATION: CT brain wo con DATE: 04/29/2025 19:54 INDICATION: Altered mental status. TECHNIQUE: Computed tomography (CT) of the head was performed without intravenous contrast. The mA was adjusted according to patient size. Iterative reconstruction technique was employed. The dose-length product was 681.00 mGy-cm. COMPARISON: Head CT 03/07/2025 FINDINGS: There are scattered areas of low attenuation in the cerebral white matter. There is no intracranial hemorrhage, acute infarction, or abnormal intracranial mass lesion. The ventricles are normal in size. There are likely changes of ocular lens replacement surgeries. There is mucosal thickening in the paranasal sinuses. The mastoid air cells are normal. IMPRESSION: 1. Stable moderate nonspecific cerebral white matter disease, which likely represents chronic small vessel ischemic disease. Reviewed, dictated and finalized at location K. IMPRESSION: 1. Stable moderate nonspecific cerebral white matter disease, which likely repr esents chronic small vessel ischemic disease.
--- NOTE | ~2025-04-29 | US_ITS ---
EXAMINATION: US soft tissue groin RT DATE: 05/01/2025 12:43 INDICATION: Right groin fullness and pain TECHNIQUE: Multiple grayscale and Doppler ultrasound images of the right groin were obtained. COMPARISON: None FINDINGS: There are few normal-sized hypoechoic right inguinal lymph nodes with echogenic fatty rosa maria the largest measuring 8 mm in maximal short axis diameter which is within normal limits. No pathologically enlarged lymph nodes or other abnormal masses or fluid collections identified. The right common femoral vein is patent and compressible. IMPRESSION: 1. Unremarkable ultrasound images of the right groin with no pathologically enlarged lymphadenopathy or other abnormal masses or fluid collections identified. Reviewed, dictated and finalized at location A. IMPRESSION: 1. Unremarkable ultrasound images of the right groin with no pathologically enl arged lymphadenopathy or other abnormal masses or fluid collections identified.
--- NOTE | ~2025-04-29 | XR_ITS ---
X-rays right hip with pelvis Indication: Fall, pain Comparison: 02/06/2024 Technique: 2 views right hip, and AP pelvis Findings/Impression: 1. No fracture or dislocation right hip. 2. Mild degenerative changes right hip. 3. No pelvic fracture or left hip abnormality identified given single view. Reviewed, dictated and finalized at location R.
--- NOTE | 2025-04-29 19:17 | ED.AMS ---
HPI - Altered Mental Status General Chief Complaint: Altered Mental Status Stated Complaint: Found floor/strong odor of urine Time Seen by Provider: 04/29/25 19:05 Source: patient and EMS Mode of arrival: EMS Limitations: no limitations History of Present Illness HPI narrative: This is an 89-year-old male with history of parkinsonism, CAD, hypertension, hyperlipidemia who presents to the ED via EMS for fall and altered mental status. Per EMS, patient was reportedly found down by with approximate down time of at least 24 hours. Patient does not recall what happened to cause some to be on the ground. He does report right hip pain. He has had some dysuria for the past day or so and he is prone to UTIs. Denies headache, change of vision, nausea, vomiting, diarrhea, constipation abdominal pain, chest pain, shortness of breath. Related Data Home Medications ?Medication ?Instructions ?Recorded ?Confirmed ?Last Taken ?Type aspirin 81 mg tablet,delayed 81 mg PO 1XD 09/24/19 01/08/25 05/10/22 09:00 History release metoprolol succinate 25 mg 25 mg PO HS 04/08/20 01/08/25 05/09/22 21:00 History tablet,extended release 24 hr magnesium 250 mg tablet 250 mg PO DAILY 01/20/22 01/08/25 05/10/22 09:00 History qizwptnc-olw-EL 200 mcg-vit K 15 1 tablet PO DAILY 08/31/22 01/08/25 Unknown History mcg-lycope 150 ogj-aeifej-tzqm tablet (Ocuvite Eye Plus Multi) meclizine 25 mg tablet 25 mg PO QID PRN dizziness 04/29/25 04/29/25 Unknown History Allergies Allergy/AdvReac Type Severity Reaction Status Date / Time No Known Allergies Allergy Verified 04/29/25 19:19 Review of Systems Review of Systems: Gen.: Denies fevers or chills Eyes: Denies eye pain or visual change ENT: Denies congestion Respiratory: Denies shortness of breath or cough CV: Denies chest pain or palpitations GI: Denies abdominal pain nausea, emesis or diarrhea as per HPI Musculoskeletal: As per HPI Neuro: Denies numbness, tingling, weakness or focal weakness Skin: Denies rash Except as documented, all other systems reviewed and negative PMFSH Past Medical History Medical History Tremor Pain of right lower extremity Parkinsons disease Parkinsons disease Sepsis Bacteremia Acute urinary retention Acute UTI Foot lesion Black tarry stools Upper GI bleed Atherosclerotic heart disease of [place] coronary artery with angina pectoris Benign prostatic hyperplasia with nocturia Body mass index [BMI] 30.0-30.9, adult (09/15/17) Body mass index [BMI] 31.0-31.9, adult (04/28/17) Body mass index [BMI] 32.0-32.9, adult (08/21/15) Complete tear of right rotator cuff Enlarged prostate without lower urinary tract symptoms (luts) Gastro-esophageal reflux disease without esophagitis Hematuria Nocturia Right arm pain Right shoulder pain Sinusitis chronic, frontal Tear of biceps tendon Tear of right rotator cuff Vitamin D deficiency Encounter for colonoscopy due to history of colonic polyp Hyperlipidemia Hypertension Surgical History Surgical History S/P CABG x 5 Family History Family History Mother Family history of malignant neoplasm Sibling Family history of congenital heart disease Family history of heart disease in male family member before age 55 Father Family history of chronic obstructive pulmonary disease Family history of emphysema Other Diabetes mellitus Family history of cardiovascular disease Hypertension Social History Social History Smoking status: Never smoker Second hand tobacco smoke exposure: No Alcohol intake: never Substance use: never Substance use type: does not use Do You Feel Safe in your Home?: Yes Lack of Transportation: No Lack of Food: Never True Current Housing: I Have Housing Concerned About Future Housing: No Difficulty Paying Gas/Electric Bills: No Difficulty Paying for Meds: No Currently Unemployed: No Education: High School Diploma/GED Difficulty w/ Childcare or Family Care: No Living arrangements: with family Occupation/Education: retired Gender identity (if verbalized by the patient): Male Spiritual care concerns: No Exam Narrative: APPEARANCE: Relatively unkempt. No acute distress, nontoxic, resting in bed EYES: EOMI HEENT: Normocephalic, atraumatic, OMM RESPIRATORY: No respiratory distress Clear to auscultation bilaterally with no rhonchi wheezing or rales. CARDIOVASCULAR: Regular rate and rhythm without murmurs rubs or gallops. ABDOMINAL: Soft, nontender, nondistended, no rebound or guarding MUSCULOSKELETAl: Tenderness to palpation to the right greater trochanter. No obvious deformities. Neurovascularly intact distally. NEURO: AO x3. Following commands, speech normal, no focal deficits SKIN:: Cool to the extremities. PSYCHIATRIC: Normal affect/mood, Course Vital Signs Vital signs: Vital Signs Temperature 101.2 F H 04/29/25 19:02 Pulse Rate 97 04/29/25 19:02 Respiratory Rate 13 04/29/25 19:02 Blood Pressure 96/48 L 04/29/25 19:02 Pulse Oximetry 93 04/29/25 19:02 Oxygen Delivery Room Air 04/29/25 19:02 Temperature 99.3 F 04/29/25 21:55 Pulse Rate 97 04/29/25 21:55 Respiratory Rate 18 04/29/25 21:55 Blood Pressure 87/43 L 04/29/25 21:55 Pulse Oximetry 94 04/29/25 21:55 Oxygen Delivery Room Air 04/29/25 22:11 MDM - Altered Mental Status MDM Narrative Medical decision making narrative: 82-year-old male that presented to the ED for altered mental status and possible fall. On initial evaluation, patient was in no acute distress, febrile to 101.2 for, soft blood pressures at 96/40. Heart and lungs clear. No overt signs of trauma. CT head and C-spine were obtained and showed no acute process. Chest x-ray showed no acute process. Right hip x-ray was obtained due to pain in that area showed no fractures. He was mildly anemic at 12.5. He had an YOLANDA with creatinine 1.7 and BUN at 33. Lactic acidosis of 2.9. CK elevated at 5875. UA consistent with a UTI. Patient was given Rocephin. He was given 30 cc/kg bolus of normal saline. He will require admission for UTI and rhabdomyolysis and sepsis. Case was discussed with hospitalist, Dr. Pike will admit. Differential Diagnosis Differential diagnosis: Likely altered mental status, subarachnoid hemorrhage, sepsis and other (UTI, PNA, Electrolyte abnormality, rhabdo, CVA) Medical Records Attestation: I reviewed the patient's medical records. Lab Data Attestation: I reviewed the patient's lab results. 04/29/25 19:26 04/29/25 19:26 Labs: Lab Results 04/29/25 04/29/25 04/29/25 Range/Units 19:25 19:26 19:37 WBC 9.3 (4.5-10.0) K/mm3 RBC 4.19 L (4.6-6.20) M/mm3 Hgb 12.5 L (14.0-18.0) g/dL Hct 38.2 L (42.0-52.0) % MCV 91.2 (80-100) fl MCH 29.8 (26-34) pg MCHC 32.7 (32-36) g/dl RDW 12.7 (11.5-14.5) % Plt Count 115 L (150-375) k/mm3 MPV 10.4 (7.4-10.4) fl Immature Gran % (Auto) Not Reportable Neut % (Auto) Not Reportable Lymph % (Auto) Not Reportable [place] % (Auto) Not Reportable Eos % (Auto) Not Reportable Baso % (Auto) Not Reportable Lymph # (Auto) Not Reportable [place] # (Auto) Not Reportable Eos # (Auto) Not Reportable Baso # (Auto) Not Reportable Abs Immat Gran (auto) Not Reportable Absolute Neuts (auto) Not Reportable Absolute Nucleated RBC Not Reportable Total Counted 100 Neutrophils % (Manual) 89 H (46-73) % Band Neutrophils % 6 (0-6) % Lymphocytes % (Manual) 1.0 L (18-44) % Monocytes % (Manual) 3 (3-9) % Basophils % (Manual) 1 (0-1) % Nucleated RBC % Not Reportable Abs Neuts (Manual) 8.83 H (1.3-6.7) K/mm3 Abs Lymphs (Manual) 0.09 L (1.1-4.5) K/mm3 Abs Monocytes (Manual) 0.27 (0.1-0.90) K/mm3 Abs Basophils (Manual) 0.09 (0.0-0.1) K/mm3 Platelet Estimate Decreased (Adequate) % Immature Plt Fraction 3.1 (0.9-11.2) % Anisocytosis 1+ Schistocytes None seen PT 17.5 H (11.1-14.7) Seconds INR 1.5 APTT 30.3 (22.3-36.8) Seconds Sodium 139 (137-145) mmol/L Potassium 3.7 (3.4-5.0) mmol/L Chloride 107 (98-107) mmol/L Carbon Dioxide 23 (22-30) mmol/L Anion Gap 9 (4-12) mmol/L BUN 33 H (9-20) mg/dL Creatinine 1.70 H (0.7-1.3) mg/dL Estim Creat Clear Calc 22 ml/min Estimated GFR 38 L (59 - ) Glucose 68 (65-110) mg/dL Lactic Acid 2.9 H (0.7-2.0) mmol/L Calcium 9.2 (8.4-10.2) mg/dL Total Bilirubin 2.0 H (0.2-1.3) mg/dL AST 106 H (17-59) U/L ALT 21 (6-50) U/L Alkaline Phosphatase 64 (38-126) U/L Total Creatine Kinase 5975 H (55-170) U/L C-Reactive Protein 8.0 H (<1.0) mg/dL Total Protein 6.7 (6.3-8.2) g/dL Albumin 3.8 (3.5-5.1) g/dL Urine Color Dark yellow (Yellow) Urine Appearance Turbid H (Clear) Urine pH 6.0 (5.0-9.0) Ur Specific [place] 1.014 (1.001-1.035) Urine Protein 1+ H (Negative) mg/dL Urine Glucose (UA) Negative (Negative) mg/dL Urine Ketones Trace H (Negative) mg/dL Ur Blood (Man) 2+ H (Negative) Urine Nitrate Negative (Negative) Urine Bilirubin Negative (Negative) Urine Urobilinogen 1.0 (<2.0) mg/dL Add Ur Microanalysis Reviewed Leukocyte Esterase Rfl 3+ H (Negative) TYRON/UL Urine RBC 21-50 H (0-2) /hpf Urine WBC >100 H (0-3) /hpf Ur Squamous Epith Cells Moderate (Few) /hpf Amorphous Sediment Few H (None) Urine Bacteria 4+ H /hpf Urine Casts >20 Imaging Data Attestation: I personally reviewed and interpreted this imaging study as follows: (I reviewed the radiologist's interpretations.) Radiologist's impression: Impressions Head CT 04/29/25 20:07 IMPRESSION: 1. Stable moderate nonspecific cerebral white matter disease, which likely represents chronic small vessel ischemic disease. Cervical Spine CT 04/29/25 20:09 IMPRESSION: 1. No acute fracture. 2. Severe cervical spondylosis. Chest X-Ray 04/29/25 20:11 IMPRESSION: 1. Right lung findings likely rotation and/or soft tissue artifact, but consider PA and lateral films with deep inspiration for better evaluation. ECG Data EKG #1: Attestation: I personally reviewed and interpreted this ECG as follows: ECG completion date: 04/29/25 ECG completion time: 19:15 Interpretation: Normal sinus rhythm at 95 room left anterior fascicular block Q-waves in the lateral leads, no acute ST or T-wave changes Discharge Plan Discharge Clinical Impression: Rhabdomyolysis, Acute UTI, Fall, Sepsis Patient Disposition: Still a Patient Condition: Stable
[2025-04-29] MEDS: ACETAMINOPHEN 500 MG TABLET 1000 MG PO (19:23)
--- OUTSIDE RECORDS SUMMARY | 2025-04-29 19:28 | XMS_ITS | Patient Health Record ---
Author Organization [facility] Address [address] [place], [place] [id number] Care Team Providers Care Assistance Specialist Name Role Phone FREDDY DUBOIS Unavailable [phone] Diogenes Heath Unavailable Unavailable Allergies No Known Allergies Reason For Referral No Information Plan Of Treatment No Information Insurance Providers Payer Name Payer Address Payer Phone Subscriber Number Group Number Insured Name Patient Relationship to Insured Coverage Start Date Coverage End Date Medicare Part B [place] [address] [place] [phone] [id number] ALISE MARTÍNEZ Self - patient is the insured [facility] ([facility]) ATTN CLAIMS [address] [place] [address] [id number] ALISE MARTÍNEZ Self - patient is the insured Medical (General) History Medical History History ICD Code kidney stones neuropathy stroke skin cancer Leg/Feet cramps Back Trouble Radiation therapy Parkinson's disease Surgical History Surgery Date(Month/Year) Gall Bladder Bypass surgery
--- OUTSIDE RECORDS SUMMARY | 2025-04-29 19:28 | XMS_ITS | Clinical Summary ---
Author Organization [facility] Address [address] [place] [address] Phone Care Team Providers Care Title Agent Name Role Phone Unavailable Primary Care Provider [...] Encounters Date Type Department Care Team Description 04/03/2025 External Device Data [facility] ABSTRACTION Provider, Abstract 04/02/2025 External Device Data [facility] ABSTRACTION Provider, Abstract 03/20/2025 External Device Data [facility] ABSTRACTION Provider, Abstract 03/19/2025 External Device Data [facility] ABSTRACTION Provider, Abstract 02/27/2025 External Device Data [facility] ABSTRACTION Provider, [...] 2025 Insurance MEDICARE PART A AND B [facility]
--- OUTSIDE RECORDS SUMMARY | 2025-04-29 19:28 | XMS_ITS | Clinical Summary ---
Author Organization [facility] [address] Address [address] [place] [address] Care Team Providers Care Ms Sql Dba Name Role Phone Live Leroy MD Primary [...] day 0 2 Active vit A,C and I-wquuku-mebjie ls (VISION FORMULA, WITH LUTEIN,) 1,000 unit-200 [...] stenosis 05/01/2020 Coronary artery disease invo lving [place] coronary artery of [place] heart without angina pectoris 06/14/2017 Hx of [...] on file Legal Sex Male 10:58 AM [employer] Gender Identity Not on file Sexual Orientation [...] Influenza Vaccine (#1) 2025 05/17/2020 Insurance MEDICARE [facility] MEDICARE [facility] Care Teams Ms Sql Dba Relationship Specialty Start Date End Date Live Leroy MD [address] [place], [place] [id number] PCP - General 05/18/12
[2025-04-29 19:33] LABS: Hematocrit 38.2 % (42.0-52.0); Hemoglobin 12.5 g/dL (14.0-18.0); Immature Platelet Fraction Pct 3.1 % (0.9-11.2); Mean Corpuscular HGB Conc 32.7 g/dl (32-36); Mean Corpuscular Hemoglobin 29.8 pg (26-34); Mean Corpuscular Volume 91.2 fl (80-100); Platelet Count Result 115 k/mm3 (150-375); Red Blood Count 4.19 M/mm3 (4.6-6.20); White Blood Count 9.3 K/mm3 (4.5-10.0)
[2025-04-29 19:41] LABS: Alanine Aminotransferase 21 U/L (6-50); Albumin Level 3.8 g/dL (3.5-5.1); Alkaline Phosphatase 64 U/L (38-126); Anion Gap 9 mmol/L (4-12); Aspartate Amino Transferase 106 U/L (17-59); Bilirubin,Total 2.0 mg/dL (0.2-1.3); Blood Urea Nitrogen 33 mg/dL (9-20); Calcium 9.2 mg/dL (8.4-10.2); Carbon Dioxide 23 mmol/L (22-30); Chloride 107 mmol/L (98-107); Estimated CRCL calculation 22 ml/min; Estimated Glomerular Filt Rate 38; Glucose 68 mg/dL (65-110); Potassium 3.7 mmol/L (3.4-5.0); Sodium 139 mmol/L (137-145); Total Protein 6.7 g/dL (6.3-8.2)
[2025-04-29 19:48] LABS: INR 1.5; Prothrombin Time 17.5 Seconds (11.1-14.7)
[2025-04-29 19:49] LABS: Partial Thromboplastin Time 30.3 Seconds (22.3-36.8)
[2025-04-29 20:01] LABS: CRP 8.0 mg/dL (<1.0)
--- NOTE | 2025-04-29 20:03 | ECG_ITS ---
Test Date: 2025-04-29 19:15:40 Measurements Intervals [place] Rate: 95 P: 18 WV: 178 QRS: -46 QRSD: 116 T: 25 QT: 350 QTc: 440 Interpretive Statements SINUS RHYTHM LEFT ANTERIOR FASCICULAR BLOCK [QRS AXIS <= -45, QR IN I, RS IN II] POSSIBLE LATERAL MYOCARDIAL INFARCTION , OF INDETERMINATE AGE [30 ms Q WAVE IN I/aVL/V5/V6] Compared to ECG 03/07/2025 10:25:31 NO SIGNIFICANT CHANGES Electronically Signed On 04-30-2025 09:25:14 CDT by Alphonse Hsu M.D.
[2025-04-29 20:26] LABS: Add Urine Microscopic? YES; Appearance Urine Turbid (Clear); Glucose Urine UA Negative (Negative); Leukocyte Esterase Ur 3+ LEU/UL (Negative); Need Manual Microscopic Reviewed; Nitrate Urine Negative (Negative); Non Pathogenic Casts >20; Specific Grav Ur 1.014 (1.001-1.035)
[2025-04-29 20:26] LABS: Anisocytosis 1+; Band Neutrophils Percent 6 % (0-6); Basophils Absolute Manual 0.09 K/mm3 (0.0-0.1); Basophils Percent Manual 1 % (0-1); Lymphocytes Absolute Manual 0.09 K/mm3 (1.1-4.5); Lymphocytes Percent Manual 1.0 % (18-44); Monocytes Absolute Manual 0.27 K/mm3 (0.1-0.90); Monocytes Percent Manual 3 % (3-9); Neutrophils Absolute Manual 8.83 K/mm3 (1.3-6.7); Neutrophils Percent Manual 89 % (46-73); Total Cells Counted 100
[2025-04-29 20:27] LABS: Schistocytes None Seen
[2025-04-29 20:31] LABS: Creatine Kinase 5975 U/L (55-170)
[2025-04-29] MEDS: SODIUM CHLORIDE 0.9% IV 900 ML 999 ML IV CONT (21:05)
[2025-04-29] MEDS: SODIUM CHLORIDE 0.9% IV 1,000 ML 999 ML IV CONT (21:05)
[2025-04-29] MEDS: cefTRIAXone 2 GM in SODIUM CHLORIDE 0.9% IV 100 ML 200 ML IVPB (21:07)
--- NOTE | 2025-04-29 21:49 | ADMGEN ---
This patient, Trav Murrieta, was admitted to 2 Medical Room 256-. Patient/family oriented to hospital policies and general routines including ID bracelet, bed and alarms, visiting hours, pain management, procedures, bathroom and other care routines, personal items, smoking policy, room service/diet, and visiting hours. Information on how to activate the Rapid Response Team has been discussed. Patient/Family are encouraged to report perceived risks to care and to ask questions if they do not understand what they are told or what they should do.
[2025-04-29] MEDS: SODIUM CHLORIDE 0.9% IV 1,000 ML 125 ML IV CONT (23:00)
[2025-04-30] VITALS (13 sets, daily range): BP systolic 87–134; BP diastolic 38–73; PULSE 63–100; RESP 18–20; TEMP 36.2–36.9; O2SAT 71–98
--- NOTE | 2025-04-30 | ECHO_ITS ---
Patient Info Name: Trav Murrieta Age: 89 years : 1935 Gender: Male Ht: 62 in Wt: 140 lbs BSA: 1.68 m2 HR: 100 bpm BP: 104 / 64 mmHg Heart Rhythm: Sinus Rhythm Technical Quality: Good Exam Date: 04/30/2025 4:03 PM Patient Status: I Admit Date: 04/29/2025 Exam Type: CA echo doppler color flow Complete two-dimensional, color flow and Doppler transthoracic echocardiogram is performed. Staff Referring Physician: Vitaly Davidson Or Nurse Manager: Chino Hancock III Attending Provider: Bernice Pike DO Summary 1. Complete two-dimensional, color flow and Doppler transthoracic echocardiogram is performed. 2. Left ventricular chamber dimension is normal. 3. Left ventricular systolic function is normal, estimated at 60-65. 4. There is mildly increased left ventricular wall thickness. 5. The left ventricular diastolic function is grade II diastolic dysfunction. 6. Left atrial chamber dimension is mildly enlarged. 7. There is mild aortic valve regurgitation. 8. There is moderate aortic valve calcification. 9. At least mild aortic stenosis (but not severe). LVOT diameter is overestimated causing the calculated aortic valve area to larger than visualized. 10. There is mild mitral valve regurgitation. 11. There is mild tricuspid valve regurgitation. 12. The aortic root size at the sinus of Valsalva is mildly dilated. Left Ventricle Left ventricular chamber dimension is normal. Left ventricular systolic function is normal, estimated at 60-65. There is mildly increased left ventricular wall thickness. The left ventricular diastolic function is grade II diastolic dysfunction. Right Ventricle Right ventricular chamber dimension is normal. Right ventricular systolic function is normal. Left Atria Left atrial chamber dimension is mildly enlarged. Right Atria Right atrial chamber dimension is normal. Atrial Septum Intact interatrial septum visualized by color flow imaging. Aortic Valve The aortic valve is trileaflet. There is mild aortic valve regurgitation. There is moderate aortic valve calcification. At least mild aortic stenosis (but not severe). LVOT diameter is overestimated causing the calculated aortic valve area to larger than visualized. Pulmonic Valve The pulmonic valve is normal. There is no pulmonic valve stenosis. There is trace pulmonic regurgitation. Mitral Valve The mitral valve has thickened leaflets. There is no mitral valve stenosis. There is mild mitral valve regurgitation. Tricuspid Valve The tricuspid valve leaflets are normal. There is no significant tricuspid valve stenosis. There is mild tricuspid valve regurgitation. Pericardium/Pleural The pericardium appears normal. There is no pericardial effusion. Inferior Vena Cava Normal inferior vena cava with >50% collapse upon inspiration consistent with normal right atrial pressure, 5 mmHg. Aorta The aortic root size at the sinus of Valsalva is mildly dilated. Left Ventricular Outflow Tract Name Value Normal LVOT 2D LVOT Diameter 2.2 cm LVOT Doppler LVOT Peak Velocity 92 cm/s LVOT Peak Gradient 3 mmHg LVOT Mean Gradient 2 mmHg LVOT VTI 20 cm LVOT VTI/AV VTI Ratio 0.7 LVOT Stroke Volume 74 ml LVOT CO 15.2 l/min LVOT CI 9.1 l/min/m2 Pulmonic Valve Name Value Normal PV Doppler PV Peak Velocity 95 cm/s PV Peak Gradient 4 mmHg PV Mean Gradient 2 mmHg Mitral Valve Name Value Normal MV Doppler MV Peak Gradient 4 mmHg MV Mean Gradient 2 mmHg MV Area (Cont Eq VTI) 3.3 cm2 MV Diastolic Function MV E Peak Velocity 107 cm/s MV A Peak Velocity 91 cm/s MV E/A 1.2 MV Decel Time (PW) 163 ms MV Annular TDI MV E/e' (Septal) 16.1 MV E/e' (Lateral) 11.1 MV E/e' (Average) 13.6 Tricuspid Valve Name Value Normal Estimated PAP/RSVP RA Pressure 5 mmHg <=5 TV Annular TDI TV Lateral Linda s' Velocity 11.3 cm/s >=9.5 Aortic Valve Name Value Normal AV Doppler AV Peak Velocity 167 cm/s AV Peak Gradient 11 mmHg AV Mean Gradient 5 mmHg AV VTI 28 cm AV Area (Cont Eq VTI) 2.7 cm2 >=3.0 AV Area (Cont Eq Humphrey) 2.1 cm2 AV DI (Humphrey) 0.55 AV Regurgitation 2D LVOT Area 3.7 cm2 Ventricles Name Value Normal LV Dimensions 2D/MM IVS Diastolic Thickness (2D) 1.2 cm 0.6-1.0 LVID Diastole (2D) 4.3 cm 4.2-5.8 LVIW Diastolic Thickness (2D) 0.9 cm 0.6-1.0 LVID Systole (2D) 3.1 cm 2.5-4.0 LVOT Diameter 2.2 cm LV Mass (2D Cubed) 157.93 g 88.00-224.00 LV Mass Index (2D Cubed) 94 g/m2 49-115 Relative Wall Thickness (2D) 0.41 <=0.42 LV Fractional Shortening/Ejection Fraction 2D/MM LV Fractional Shortening (2D) 28 % 25-43 LV EF (2D Teichholz) 54 % LV Diastolic Volume (4C MOD) 88 ml LV EF (4C MOD) 66 % LV Diastolic Length (4C) 8.6 cm LV Systolic Length (4C) 6.8 cm LV Stroke Volume (4C MOD) 59 ml Atria Name Value Normal LA Dimensions LA Volume (4C A-L) 55 ml LA Volume (BP A-L) 61 ml RA Dimensions RA Systolic Major [place] Length (4C) 5.0 cm 2.1-2.7 RA Area (4C) 14.8 cm2 <=18.0 Report Signatures
--- NOTE | 2025-04-30 01:26 | P.HP_ITS ---
H&P: HPI History of Present Illness Date/Time: 04/30/25 01:26 Chief Complaint: Fall Narrative: 89-year-old male with a past medical history of essential hypertension, Parkinson's, BPH with history of retention, coronary artery disease, and benign positional vertigo who presented to the ER from home via EMS after fall with unknown down time. When EMS arrived to the patient's home he was alert oriented to person and self. Patient is usually alert orient x4. At the time my evaluation patient did initially seemed to be alert orient x4 but clearly had some encephalopathy. He has of where that he was found on the floor but does not know how he got on the floor. He and with answering all questions appropriately at the time my evaluation in then just prior to my exit from the room he stated that he got lost in the building and could not find his way out. According to ER records the patient was found at home on the floor. The patient's daughter had evidently reported to ER nursing staff that the pantera that the patient had on his right chest could be due to where he fell against a TV trace so the most certainly seems like he was found at home. The patient's lives in the home with the patient but she has dementia and reportedly stated that she could not find him for 24 hours. The patient is unclear whether he laid on the floor for a few minutes or for whole day. He does not remember feeling syncopal or losing consciousness. He has no idea how he ended up on the floor. He not does not recall what position he was lying in in states he does not really remember coming to the hospital. He was reporting right hip pain to the ER staff but denies any hip pain at the time of my evaluation. X-ray of the pelvis, chest x-ray, cervical spine CT and head CT demonstrated no acute process. The patient does report that he has been having dysuria for 2 or 3 weeks any evidently has a history of urinary tract infections. He has been feeling chilled on and off for the last 1 week. His UA and in the ER was suggestive of UTI with turbid appearance, 4+ bacteria greater than 100 wbc's and 3+ leukocyte esterase but urine specimen was positive for moderate squamous cells. The patient has a normal white count. And elevated CK consistent with rhabdomyolysis causing acute kidney injury Patient was borderline hypotensive on presentation to the ER. He received 500 mL in fluid bolus per EMS. At the time of admission I requested patient receive 30 mL/kilos fluid bolus which was only another 1 L from what he had already received. On arrival to the medical floor the patient was still hypotensive. Subsequently a 2 L of fluid was administered with normalization of blood pressures. Patient was a poor historian subsequently majority of history was obtained from review of past medical records. Review of Systems 2 Review of Systems: 12 systems were reviewed with pertinent positives and negatives per HPI. Except as documented in the HPI, all other systems were reviewed and are negative. [facility] Past Medical History Medical History (Updated 04/30/25 @ 07:00 by Bernice Pike DO) History of malignant carcinoid tumor of rectum Aortic stenosis Diastolic dysfunction Grade 1 diastolic dysfunction with EF of 65-70%, mild aortic stenosis, mild aortic regurgitation Sciatica Osteopenia of lumbar spine Thrombocytopenia Chronic Parkinsons disease Upper GI bleed Atherosclerotic heart disease of [place] coronary artery with angina pectoris Benign prostatic hyperplasia with nocturia Complete tear of right rotator cuff With chronic right shoulder pain Gastro-esophageal reflux disease without esophagitis Sinusitis chronic, frontal Tear of biceps tendon Vitamin D deficiency Hyperlipidemia Hypertension Surgical History Surgical History (Updated 04/30/25 @ 06:31 by Bernice Pike DO) Status post cataract extraction of both eyes with insertion of intraocular lens History of colonoscopy with polypectomy S/P CABG x 5 Family History Family History Mother Family history of malignant neoplasm Sibling Family history of congenital heart disease Family history of heart disease in male family member before age 55 Father Family history of chronic obstructive pulmonary disease Family history of emphysema Other Diabetes mellitus Family history of cardiovascular disease Hypertension Social History Social History (Updated 04/30/25 @ 06:21 by Bernice Pike DO) Social History: The patient lives at home with his of 69 years. They raised 3 daughters and 3 sons. He retired from the [employer]. He is a lifelong nonsmoker and does not drink alcohol. He is post ambulate with a cane. Code status: DNR/DNI (per living will) Healthcare power of contracts attorney: Devante (son) Smoking status: Never smoker Second hand tobacco smoke exposure: No Alcohol intake: never Substance use: never Substance use type: does not use Do You Feel Safe in your Home?: Yes Lack of Transportation: No Lack of Food: Never True Current Housing: I Have Housing Concerned About Future Housing: No Difficulty Paying Gas/Electric Bills: No Difficulty Paying for Meds: No Currently Unemployed: No Education: High School Diploma/GED Difficulty w/ Childcare or Family Care: No Living arrangements: with family Occupation/Education: retired Gender identity (if verbalized by the patient): Male Spiritual care concerns: No Meds Home Medications and Allergies Home Medications ?Medication ?Instructions ?Recorded ?Confirmed ?Type aspirin 81 mg tablet,delayed 81 mg PO 1XD 09/24/19 History release metoprolol succinate 25 mg 25 mg PO HS 04/08/20 History tablet,extended release 24 hr cholecalciferol (vitamin D3) 125 125 mcg PO DAILY #90 caps 12/05/20 04/29/25 Rx mcg (5,000 unit) capsule magnesium 250 mg tablet 250 mg PO DAILY 01/20/22 History cyanocobalamin (vitamin B-12) 1,000 mcg PO QAM #30 tab s 05/15/22 04/29/25 Rx 1,000 mcg tablet (Vitamin B-12) [id number] 200 mcg-vit K 15 1 tablet PO DAILY 04/29/25 History mcg-lycope 150 otp-jcwguw-rbyv tablet (Ocuvite Eye Plus Multi) fenofibric acid (choline) 135 mg See Rx Instructions . Route 08/13/24 04/29/25 Rx capsule,delayed release .COMPLEX #90 caps carbidopa 25 mg-levodopa 100 mg 2 tablet PO QID #240 t abs 12/06/24 04/29/25 Rx tablet (Sinemet) doxazosin 2 mg tablet See Rx Instructions .Route 0 12/21/24 04/29/25 Rx .COMPLEX #90 tabs gabapentin 300 mg capsule 300 mg PO TID #270 caps 03/1504/29/25 Rx atorvastatin 10 mg tablet See Rx Instructions .Route 0 04/09/25 04/29/25 Rx .COMPLEX #45 tabs lubiprostone 8 mcg capsule See Rx Instructions .Route 04/09/25 04/29/25 Rx .COMPLEX #60 caps meclizine 25 mg tablet 25 mg PO QID PRN dizziness 0 04/29/25 04/29/25 History Allergies Allergy/AdvReac Type Severity Reaction Status Date / Time No Known Allergies Allergy Verified 04/29/25 19:19 Vital Signs Vital Signs - 24 hr 04/29/25 19:02 04/29/25 19:15 04/29/25 19:16 Temperature 101.2 F H Pulse Rate 97 94 Respiratory Rate 13 Blood Pressure 96/48 L 96/48 L Pulse Oximetry 93 93 94 Oxygen Delivery Room Air Room Air 04/29/25 19:19 04/29/25 20:30 04/29/25 20:57 Temperature 98.1 F Pulse Rate 94 94 Respiratory Rate 19 Blood Pressure 92/49 L Pulse Oximetry 95 Oxygen Delivery 04/29/25 21:01 04/29/25 21:55 04/29/25 22:11 Temperature 99.3 F Pulse Rate 92 97 Respiratory Rate 18 18 Blood Pressure 90/47 L 87/43 L Pulse Oximetry 95 94 Oxygen Delivery Room Air 04/30/25 00:00 04/30/25 01:16 Temperature 98.4 F Pulse Rate 80 Respiratory Rate 18 Blood Pressure 87/38 L 98/49 L Pulse Oximetry 93 Oxygen Delivery Exam 2 Narrative: Weight 63.5 BMI 25.6 Const: Other: Elderly, well-nourished, mildly ill-appearing HENMT: Other: Edentulous, mucous membranes are dry, peeling lips, head is normocephalic atraumatic, masked faces Eyes: Other: No scleral icterus, pupils are equal and reactive, bilateral lens implants noted Neck: Other: No JVD, no lymphadenopathy Resp: Other: Clear to auscultation bilaterally, no increased work of breathing Cardio: Other: 2/6 systolic murmur, 2+ bilateral radial pedal pulses, no JVD, no lower extremity edema GI: Other: Soft, nontender, nondistended, positive bowel sounds : Other: Continent of urine but overall smells like urine Skin: Other: Scabbed abrasions to the right lower extremity (patient reports she due to use being scratched by the bed frame when he walks around the into the bed), blanching erythema to the right lateral knee, contusion to the right lateral ribcage Neuro: Other: Alert oriented to person, place, time and name of current president in seems fairly oriented as far as a past medical history but has poor recall of recent events and has moments of confusion, but no localizing neurologic deficits noted marked tremor and cogwheel rigidity consistent with Parkinson's, slowed responses Extrem: Other: No clubbing, cyanosis or edema, moves all extremities equally, 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 Psych: Other: Appropriate mood and affect, pleasant and cooperative H&P: Results Labs Labs: Laboratory Tests 04/29/25 19:26 04/29/25 19:26 04/29/25 04/29/25 04/29/25 19: 19: 19:37 WBC 9.3 RBC 4.19 L Hgb 12.5 L Hct 38.2 L MCV 91.2 MCH 29.8 MCHC 32.7 RDW 12.7 Plt Count 115 L MPV 10.4 Immature Gran % (Auto) Not Reportable Neut % (Auto) Not Reportable Lymph % (Auto) Not Reportable [place] % (Auto) Not Reportable Eos % (Auto) Not Reportable Baso % (Auto) Not Reportable Lymph # (Auto) Not Reportable [place] # (Auto) Not Reportable Eos # (Auto) Not Reportable Baso # (Auto) Not Reportable Abs Immat Gran (auto) Not Reportable Absolute Neuts (auto) Not Reportable Absolute Nucleated RBC Not Reportable Total Counted 100 Neutrophils % (Manual) 89 H Band Neutrophils % 6 Lymphocytes % (Manual) 1.0 L Monocytes % (Manual) 3 Basophils % (Manual) 1 Nucleated RBC % Not Reportable Abs Neuts (Manual) 8.83 H Abs Lymphs (Manual) 0.09 L Abs Monocytes (Manual) 0.27 Abs Basophils (Manual) 0.09 Platelet Estimate Decreased % Immature Plt Fraction 3.1 Anisocytosis 1+ Schistocytes None seen PT 17.5 H INR 1.5 APTT 30.3 Sodium 139 Potassium 3.7 Chloride 107 Carbon Dioxide 23 Anion Gap 9 BUN 33 H Creatinine 1.70 H Estim Creat Clear Calc 22 Estimated GFR 38 L Glucose 68 Lactic Acid 2.9 H Calcium 9.2 Total Bilirubin 2.0 H AST 106 H ALT 21 Alkaline Phosphatase 64 Total Creatine Kinase 5975 H C-Reactive Protein 8.0 H Total Protein 6.7 Albumin 3.8 Urine Color Dark yellow Urine Appearance Turbid H Urine pH 6.0 Ur Specific [place] 1.014 Urine Protein 1+ H Urine Glucose (UA) Negative Urine Ketones Trace H Ur Blood (Man) 2+ H Urine Nitrate Negative Urine Bilirubin Negative Urine Urobilinogen 1.0 Add Ur Microanalysis Reviewed Leukocyte Esterase Rfl 3+ H Urine RBC 21-50 H Urine WBC >100 H Ur Squamous Epith Cells Moderate Amorphous Sediment Few H Urine Bacteria 4+ H Urine Casts >20 04/29/25 22:23 WBC RBC Hgb Hct MCV MCH MCHC RDW Plt Count MPV Immature Gran % (Auto) Neut % (Auto) Lymph % (Auto) [place] % (Auto) Eos % (Auto) Baso % (Auto) Lymph # (Auto) [place] # (Auto) Eos # (Auto) Baso # (Auto) Abs Immat Gran (auto) Absolute Neuts (auto) Absolute Nucleated RBC Total Counted Neutrophils % (Manual) Band Neutrophils % Lymphocytes % (Manual) Monocytes % (Manual) Basophils % (Manual) Nucleated RBC % Abs Neuts (Manual) Abs Lymphs (Manual) Abs Monocytes (Manual) Abs Basophils (Manual) Platelet Estimate % Immature Plt Fraction Anisocytosis Schistocytes PT INR APTT Sodium Potassium Chloride Carbon Dioxide Anion Gap BUN Creatinine Estim Creat Clear Calc Estimated GFR Glucose Lactic Acid 1.9 Calcium Total Bilirubin AST ALT Alkaline Phosphatase Total Creatine Kinase C-Reactive Protein Total Protein Albumin Urine Color Urine Appearance Urine pH Ur Specific [place] Urine Protein Urine Glucose (UA) Urine Ketones Ur Blood (Man) Urine Nitrate Urine Bilirubin Urine Urobilinogen Add Ur Microanalysis Leukocyte Esterase Rfl Urine RBC Urine WBC Ur Squamous Epith Cells Amorphous Sediment Urine Bacteria Urine Casts Impressions Head CT 04/29/25 20:07 IMPRESSION: 1. Stable moderate nonspecific cerebral white matter disease, which likely represents chronic small vessel ischemic disease. Cervical Spine CT 04/29/25 20:09 IMPRESSION: 1. No acute fracture. 2. Severe cervical spondylosis. Chest X-Ray 04/29/25 20:11 IMPRESSION: 1. Right lung findings likely rotation and/or soft tissue artifact, but consider PA and lateral films with deep inspiration for better evaluation. Assessment and Plan Assessment and plan (1) Fall: Qualifiers: Encounter type: initial encounter Qualified Code(s): W19.XXXA - Unspecified fall, initial encounter Code(s): W19.XXXA - Unspecified fall, initial encounter Status: Acute (2) Rhabdomyolysis: Qualifiers: Encounter type: initial encounter Rhabdomyolysis type: traumatic Q ualified Code(s): T79.6XXA - Traumatic ischemia of muscle, initial encounter Code(s): M62.82 - Rhabdomyolysis Status: Acute (3) Hypotension due to hypovolemia: Code(s): E86.1 - Hypovolemia Status: Acute (4) Acute kidney injury: Code(s): N17.9 - Acute kidney failure, unspecified Status: Acute (5) Acute UTI: Code(s): N39.0 - Urinary tract infection, site not specified Status: Acute (6) Acute metabolic encephalopathy: Code(s): G93.41 - Metabolic encephalopathy Status: Acute (7) BPH (benign prostatic hyperplasia): Qualifiers: Lower urinary tract symptom presence: symptoms present Lower urinary tract symptom detail: post-void dribbling Qualified Code(s): N40.1 - Benign prostatic hyperplasia with lower urinary tract symptoms; N39.43 - Post-void dribbling Code(s): N40.0 - Benign prostatic hyperplasia without lower urinary tract symptoms Status: Acute (8) Parkinsons disease: Qualifiers: Dyskinesia presence: with dyskinesia Fluctuating manifestations: u nspecified whether manifestations fluctuate Qualified Code(s): G20.B1 - Parkinson's disease with dyskinesia, without mention of fluctuations Code(s): G20 - Parkinson's disease Status: Acute (9) Suspected pulmonary aspiration of food: Code(s): R09.89 - Other specified symptoms and signs involving the circulatory and respiratory systems Status: Acute Plan Ground level fall presumed to be from standing position with prolonged down time resulting in dehydration with hypovolemia/hypotension and rhabdomyolysis leading to acute kidney injury and mild transaminitis with mild hyperbilirubinemia. Patient has received a total of 2.5 L in fluid bolus between EMS, ER and bolus given on the floor. Will continue IV fluid hydration with LR at 125 mL an hour. Will monitor strict I&O's and daily weights. Patient has had about 100 mL of urine output since arrival to the medical floor. Postvoid residual was performed given patient's history of BPH to confirm no large volume of urinary retention with postvoid residual equaling 130 mL. Will hold the patient's thin fibrin 8 and statin therapy in the setting of acute rhabdomyolysis. The patient's antihypertensives will be held due to patient's hypotension with hypovolemia. Patient's urine is suspicious for you tacky given patient's symptoms of dysuria and recent onset of chills will treat with empiric antibiotic therapy with Rocephin. The patient does not meet sepsis criteria. Urine cultures and blood cultures have been obtained and are pending. Will repeat CBC CMP and CK in a.m.. Will resume the patient's home Sinemet. Patient been placed on fall precautions. While he was at bedside the patient was assisted in setting up to take a drink of water. Immediately after taking and drinking water the patient had some coughing am suspicious that he may have some dysphagia. Will consult speech therapy to evaluate. Also on evaluation of the patient's chart it elevated patient has had a slow progressive weight loss. I am suspicious patient may have some component of protein calorie malnutrition. MEDICAL DECISION MAKING NARRATIVE -Spoke with the ED provider in detail regarding patient's evaluation, workup and management -Patient seen and examined at bedside -Collaborated with patient's nurse at the bedside in detail and addressed all concerns -Labs, electrolytes, radiology, investigations and test results personally reviewed and interpreted unless otherwise specified -ED/Consult/Nursing/Ancilliary notes on the chart reviewed and appreciated -Spoke with patient at bedside and diagnosis and plan of care was discussed. All questions answered. Quality VTE Prophylaxis VTE prophylaxis: mechanical ordered (SCDs) Hospitalist MIPS Advance Care Plan I have confirmed that the patient's Advanced Care Plan is present, code status is documented, or surrogate decision maker is listed in patient medical record.: Yes Medication Reconciliation I have utilized all available resources to obtain, update and review the patients current medications (includes all prescriptions, OTC, herbals, cannabis, and nutritional supplements).: Yes
[2025-04-30 06:38] LABS: Hematocrit 33.3 % (42.0-52.0); Hemoglobin 10.6 g/dL (14.0-18.0); Immature Platelet Fraction Pct 3.8 % (0.9-11.2); Mean Corpuscular HGB Conc 31.8 g/dl (32-36); Mean Corpuscular Hemoglobin 29.9 pg (26-34); Mean Corpuscular Volume 94.1 fl (80-100); Platelet Count Result 96 k/mm3 (150-375); Red Blood Count 3.54 M/mm3 (4.6-6.20); White Blood Count 12.4 K/mm3 (4.5-10.0)
[2025-04-30 06:57] LABS: Alanine Aminotransferase 19 U/L (6-50); Albumin Level 2.8 g/dL (3.5-5.1); Alkaline Phosphatase 51 U/L (38-126); Anion Gap 7 mmol/L (4-12); Aspartate Amino Transferase 196 U/L (17-59); Bilirubin,Total 1.0 mg/dL (0.2-1.3); Blood Urea Nitrogen 31 mg/dL (9-20); Calcium 7.9 mg/dL (8.4-10.2); Carbon Dioxide 20 mmol/L (22-30); Chloride 113 mmol/L (98-107); Estimated CRCL calculation 26 ml/min; Estimated Glomerular Filt Rate 49; Glucose 79 mg/dL (65-110); Magnesium 1.6 mg/dL (1.6-2.3); Potassium 3.5 mmol/L (3.4-5.0); Sodium 140 mmol/L (137-145); Total Protein 5.3 g/dL (6.3-8.2)
--- NOTE | 2025-04-30 09:39 | PCSTNOTE ---
Please refer to the Bedside Swallow Evaluation in the EMR. Please note, silent aspiration cannot be ruled out at bedside. The patient is a 89 year old male admitted following a fall with a history of Parkinson's Disease. Orders received from physician to complete a BSE and r/o aspiration risk. The patient's son was at bedside during assessment. The patient was seated upright in a chair at bedside. Oral Motor Exam: Adequate lingual and labial ROM for oral preparation and transit. The patient is presently edentulous as his dentures are at home. Family is bringing dentures. Oral Stage: Timely oral preparation and transit for all consistencies without oral residual. Pharyngeal Stage: Timely swallow initiation observed for all consistencies with good laryngeal elevation and no outward CSA. Recommend: 1. Regular Diet / Level 7 2. Thin Liquid / Level 0
[2025-04-30] MEDS: ASPIRIN 81 MG ENTERIC TABLET PO (09:41)
[2025-04-30] MEDS: CYANOCOBALAMIN 1,000 MCG TABLET 1000 MCG PO (09:41)
[2025-04-30] MEDS: CARBIDOPA/LEVODOPA 25/100 MG TABLET 2 TABLET PO ×4 (09:41→20:12)
[2025-04-30] MEDS: LUBIPROSTONE 8 MCG CAPSULE PO ×2 (09:41→20:12)
[2025-04-30] MEDS: GABAPENTIN 300 MG CAPSULE PO ×3 (09:41→16:55)
[2025-04-30] MEDS: MAGNESIUM OXIDE 200 MG TABLET PO (09:41)
[2025-04-30] MEDS: DOXAZOSIN MESYLATE 2 MG TABLET PO (09:41)
[2025-04-30] MEDS: OPTI-GEN TAB 1 TABLET PO (09:41)
[2025-04-30] MEDS: CHOLECALCIFEROL (VITAMIN D3) 125 MCG (5,000 UNITS) TABLET PO (09:41)
[2025-04-30] MEDS: LACTATED RINGERS 1,000 ML 125 ML IV CONT ×2 (09:42→16:56)
--- NOTE | 2025-04-30 13:15 | P.PNIM_ITS ---
Progress Note: A&P Assessment and Plan (1) Fall: Qualifiers: Encounter type: initial encounter Qualified Code(s): W19.XXXA - Unspecified fall, initial encounter Code(s): W19.XXXA - Unspecified fall, initial encounter Status: Acute (2) Rhabdomyolysis: Qualifiers: Encounter type: initial encounter Rhabdomyolysis type: traumatic Qualified Code(s): T79.6XXA - Traumatic ischemia of muscle, initial encounter Code(s): M62.82 - Rhabdomyolysis Status: Acute (3) Hypotension due to hypovolemia: Code(s): E86.1 - Hypovolemia Status: Acute (4) Acute kidney injury: Code(s): N17.9 - Acute kidney failure, unspecified Status: Acute (5) Acute UTI: Code(s): N39.0 - Urinary tract infection, site not specified Status: Acute (6) Acute metabolic encephalopathy: Code(s): G93.41 - Metabolic encephalopathy Status: Acute (7) BPH (benign prostatic hyperplasia): Qualifiers: Lower urinary tract symptom presence: symptoms present Lower urinary tract symptom detail: post-void dribbling Qualified Code(s): N40.1 - Benign prostatic hyperplasia with lower urinary tract symptoms; N39.43 - Post-void dribbling Code(s): N40.0 - Benign prostatic hyperplasia without lower urinary tract symptoms Status: Acute (8) Parkinsons disease: Qualifiers: Dyskinesia presence: with dyskinesia Fluctuating manifestations: unspecified whether manifestations fluctuate Qualified Code(s): G20.B1 - Parkinson's disease with dyskinesia, without mention of fluctuations Code(s): G20 - Parkinson's disease Status: Acute (9) Suspected pulmonary aspiration of food: Code(s): R09.89 - Other specified symptoms and signs involving the circulatory and respiratory systems Status: Acute Plan Rhabdomyolysis improving CK >8000, continue IVF patient had a ground level fall YOLANDA, resolving Cr 1.38 from 1.7, baseline normal Continue IVF Fall, Syncope ECHO, orthostatic vital signs PT/OT monitor HTN titrate home meds with clinical course BPH continue home meds CAD Continue home meds Parkinson's disease Continue home meds and if evaluate for orthostatic hypotension DVT prophylaxis on Sq Lovenox Subjective Date/time seen: 04/30/25 13:15 Interval history: Comfortable at bedside Review of Systems Review of Systems: 12 systems were reviewed with pertinent positives and negatives per HPI. Except as documented in the HPI, all other systems were reviewed and are negative. Exam Narrative: Weight 63.5 BMI 25.6 Const: Other: Elderly, well-nourished, mildly ill-appearing HENMT: Other: Edentulous, mucous membranes are dry, peeling lips, head is normocephalic atraumatic, masked faces Eyes: Other: No scleral icterus, pupils are equal and reactive, bilateral lens implants noted Neck: Other: No JVD, no lymphadenopathy Resp: Other: Clear to auscultation bilaterally, no increased work of breathing Cardio: Other: 2/6 systolic murmur, 2+ bilateral radial pedal pulses, no JVD, no lower extremity edema GI: Other: Soft, nontender, nondistended, positive bowel sounds : Other: Continent of urine but overall smells like urine Skin: Other: Scabbed abrasions to the right lower extremity (patient reports she due to use being scratched by the bed frame when he walks around the into the bed), blanching erythema to the right lateral knee, contusion to the right lateral ribcage Neuro: Other: Alert oriented to person, place, time and name of current president in seems fairly oriented as far as a past medical history but has poor recall of recent events and has moments of confusion, but no localizing neurologic deficits noted marked tremor and cogwheel rigidity consistent with Parkinson's, slowed responses Extrem: Other: No clubbing, cyanosis or edema, moves all extremities equally, 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 Psych: Other: Appropriate mood and affect, pleasant and cooperative Objective Data Vital Signs Vital Signs: Vital Signs - 24 hr 04/29/25 19:02 04/29/25 19:15 04/29/25 19:16 Temperature 101.2 F H Pulse Rate 97 94 Respiratory Rate 13 Blood Pressure 96/48 L 96/48 L Pulse Oximetry 93 93 94 Oxygen Delivery Room Air Room Air 04/29/25 19:19 04/29/25 20:30 04/29/25 20:57 Temperature 98.1 F Pulse Rate 94 94 Respiratory Rate 19 Blood Pressure 92/49 L Pulse Oximetry 95 Oxygen Delivery 04/29/25 21:01 04/29/25 21:55 04/29/25 22:11 Temperature 99.3 F Pulse Rate 92 97 Respiratory Rate 18 18 Blood Pressure 90/47 L 87/43 L Pulse Oximetry 95 94 Oxygen Delivery Room Air 04/30/25 00:00 04/30/25 00:00 04/30/25 01:16 Temperature 98.4 F Pulse Rate 80 80 Respiratory Rate 18 Blood Pressure 87/38 L 98/49 L Pulse Oximetry 93 Oxygen Delivery 04/30/25 04:00 04/30/25 04:00 04/30/25 04:09 Temperature 97.6 F 97.6 F Pulse Rate 63 71 63 Respiratory Rate 18 18 Blood Pressure 100/42 L 100/42 L Pulse Oximetry 97 97 Oxygen Delivery 04/30/25 07:45 04/30/25 07:54 04/30/25 08:00 Temperature 97.3 F L Pulse Rate 64 64 Respiratory Rate 20 Blood Pressure 95/45 L Pulse Oximetry 96 Oxygen Delivery Room Air 04/30/25 11:51 Temperature 97.2 F L Pulse Rate 100 Respiratory Rate 20 Blood Pressure 104/65 Pulse Oximetry 71 L Oxygen Delivery Intake/Output Intake/Output: Intake & Output 04/27/25 04/28/25 04/29/25 04/30/25 23:59 23:59 23:59 23:59 Intake Total 2100 370 Output Total 100 550 Balance 2000 -180 Meds/Results Medications: Active Medications Generic Name Dose Route Start Last Admin Trade Name Freq PRN Reason Stop Dose Admin Acetaminophen 650 mg 04/29/25 20:49 Acetaminophen 325 Mg Tablet PO Q4H PRN Mild Pain (1-3) or Fever Aspirin 81 mg 04/30/25 09:00 04/30/25 09:41 Aspirin 81 Mg Enteric Tablet PO 81 mg DAILY NADRI Administration Carbidopa/Levodopa 2 tablet 04/30/25 08:00 04/30/25 12:05 Carbidopa/Levodopa 25/100 Mg Tablet PO 2 tablet 0800,1200,1700,2100 NADIR Administration Cyanocobalamin 1,000 mcg 04/30/25 09:00 04/30/25 09:41 Cyanocobalamin 1,000 Mcg Tablet PO 1,000 mcg QAM NADIR Administration Doxazosin Mesylate 2 mg 04/30/25 09:00 04/30/25 09:41 Doxazosin Mesylate 2 Mg Tablet PO 2 mg DAILY NADIR Administration Gabapentin 300 mg 04/30/25 09:00 04/30/25 12:04 Gabapentin 300 Mg Capsule PO 300 mg TID NADIR Administration Ceftriaxone Sodium 1 gm/ 50 mls @ 100 mls/hr 04/30/25 21:00 Sodium Chloride IVPB Q24H NADIR Lactated Ringer's 1,000 mls @ 125 mls/hr 04/30/25 07:00 04/30/25 09:42 Lr - Lactated Ringers Iv IV CONT 125 mls/hr .Q8H NADIR Administration Lubiprostone 8 mcg 04/30/25 09:00 04/30/25 09:41 Lubiprostone 8 Mcg Capsule PO 8 mcg Q12HR NADIR Administration Magnesium Oxide 200 mg 04/30/25 09:00 04/30/25 09:41 Magnesium Oxide 200 Mg Tablet PO 200 mg DAILY NADIR Administration Meclizine HCl 25 mg 04/30/25 01:35 Meclizine Hcl 25 Mg Tablet PO QID PRN Dizziness Morphine Sulfate 2 mg 04/29/25 20:49 Morphine Sulfate (*Crx) 2 Mg/Ml Inj IV PUSH Q2H PRN Pain Rated 7-10 Multivitamins/Minerals 1 tablet 04/30/25 09:00 04/30/25 09:41 Opti-Gen Tab PO 1 tablet QAM NADIR Administration Perflutren Lipid Microsphere 0 ml 04/30/25 13:14 Perflutren Lipid Microspheres 1.5 Ml Vial Diluted To 10 Ml Total Volume IV PUSH 05/03/25 13:14 ONCE PRN adequate visualization Protocol Vitamin D 125 mcg 04/30/25 09:00 04/30/25 09:41 Cholecalciferol (Vitamin D3) 125 Mcg (5,000 Units) Tablet PO 125 mcg DAILY NADIR Administration Radiology Results: ITS Impressions Head CT 04/29/25 20:07 IMPRESSION: 1. Stable moderate nonspecific cerebral white matter disease, which likely represents chronic small vessel ischemic disease. Cervical Spine CT 04/29/25 20:09 IMPRESSION: 1. No acute fracture. 2. Severe cervical spondylosis. Chest X-Ray 04/29/25 20:11 IMPRESSION: 1. Right lung findings likely rotation and/or soft tissue artifact, but consider PA and lateral films with deep inspiration for better evaluation. Labs Labs: Laboratory Results - last 24 hr 04/29/25 04/29/25 04/29/25 19:25 19:26 19:37 WBC 9.3 RBC 4.19 L Hgb 12.5 L Hct 38.2 L MCV 91.2 MCH 29.8 MCHC 32.7 RDW 12.7 Plt Count 115 L MPV 10.4 Immature Gran % (Auto) Not Reportable Neut % (Auto) Not Reportable Lymph % (Auto) Not Reportable [place] % (Auto) Not Reportable Eos % (Auto) Not Reportable Baso % (Auto) Not Reportable Lymph # (Auto) Not Reportable [place] # (Auto) Not Reportable Eos # (Auto) Not Reportable Baso # (Auto) Not Reportable Abs Immat Gran (auto) Not Reportable Absolute Neuts (auto) Not Reportable Absolute Nucleated RBC Not Reportable Total Counted 100 Neutrophils % (Manual) 89 H Band Neutrophils % 6 Lymphocytes % (Manual) 1.0 L Monocytes % (Manual) 3 Basophils % (Manual) 1 Nucleated RBC % Not Reportable Abs Neuts (Manual) 8.83 H Abs Lymphs (Manual) 0.09 L Abs Monocytes (Manual) 0.27 Abs Basophils (Manual) 0.09 Platelet Estimate Decreased % Immature Plt Fraction 3.1 Anisocytosis 1+ Schistocytes None seen PT 17.5 H INR 1.5 APTT 30.3 Sodium 139 Potassium 3.7 Chloride 107 Carbon Dioxide 23 Anion Gap 9 BUN 33 H Creatinine 1.70 H Estim Creat Clear Calc 22 Estimated GFR 38 L Glucose 68 Lactic Acid 2.9 H Calcium 9.2 Phosphorus Magnesium Total Bilirubin 2.0 H AST 106 H ALT 21 Alkaline Phosphatase 64 Total Creatine Kinase 5975 H C-Reactive Protein 8.0 H Total Protein 6.7 Albumin 3.8 Urine Color Dark yellow Urine Appearance Turbid H Urine pH 6.0 Ur Specific [place] 1.014 Urine Protein 1+ H Urine Glucose (UA) Negative Urine Ketones Trace H Ur Blood (Man) 2+ H Urine Nitrate Negative Urine Bilirubin Negative Urine Urobilinogen 1.0 Add Ur Microanalysis Reviewed Leukocyte Esterase Rfl 3+ H Urine RBC 21-50 H Urine WBC >100 H Ur Squamous Epith Cells Moderate Amorphous Sediment Few H Urine Bacteria 4+ H Urine Casts >20 04/29/25 04/30/25 22:23 06:30 WBC 12.4 H RBC 3.54 L Hgb 10.6 L Hct 33.3 L MCV 94.1 MCH 29.9 MCHC 31.8 L RDW 12.7 Plt Count 96 L MPV 10.8 H Immature Gran % (Auto) Neut % (Auto) Lymph % (Auto) [place] % (Auto) Eos % (Auto) Baso % (Auto) Lymph # (Auto) [place] # (Auto) Eos # (Auto) Baso # (Auto) Abs Immat Gran (auto) Absolute Neuts (auto) Absolute Nucleated RBC Total Counted Neutrophils % (Manual) Band Neutrophils % Lymphocytes % (Manual) Monocytes % (Manual) Basophils % (Manual) Nucleated RBC % Abs Neuts (Manual) Abs Lymphs (Manual) Abs Monocytes (Manual) Abs Basophils (Manual) Platelet Estimate % Immature Plt Fraction 3.8 Anisocytosis Schistocytes PT INR APTT Sodium 140 Potassium 3.5 Chloride 113 H Carbon Dioxide 20 L Anion Gap 7 BUN 31 H Creatinine 1.38 H Estim Creat Clear Calc 26 Estimated GFR 49 L Glucose 79 Lactic Acid 1.9 Calcium 7.9 L Phosphorus 3.3 Magnesium 1.6 Total Bilirubin 1.0 AST 196 H ALT 19 Alkaline Phosphatase 51 Total Creatine Kinase > 8000 H C-Reactive Protein Total Protein 5.3 L Albumin 2.8 L Urine Color Urine Appearance Urine pH Ur Specific [place] Urine Protein Urine Glucose (UA) Urine Ketones Ur Blood (Man) Urine Nitrate Urine Bilirubin Urine Urobilinogen Add Ur Microanalysis Leukocyte Esterase Rfl Urine RBC Urine WBC Ur Squamous Epith Cells Amorphous Sediment Urine Bacteria Urine Casts Quality VTE Prophylaxis VTE prophylaxis: mechanical ordered (SCDs)
[2025-04-30] MEDS: cefTRIAXone 1 GM in SODIUM CHLORIDE 0.9% IV 50 ML 100 ML IVPB (20:11)
[2025-05-01] VITALS (12 sets, daily range): BP systolic 99–146; BP diastolic 50–81; PULSE 64–89; RESP 16–20; TEMP 36.5–37; O2SAT 95–100
[2025-05-01] MEDS: LACTATED RINGERS 1,000 ML 125 ML IV CONT ×3 (01:29→18:29)
[2025-05-01 05:02] LABS: Hematocrit 33.1 % (42.0-52.0); Hemoglobin 10.7 g/dL (14.0-18.0); Immature Platelet Fraction Pct 3.4 % (0.9-11.2); Mean Corpuscular HGB Conc 32.3 g/dl (32-36); Mean Corpuscular Hemoglobin 30.1 pg (26-34); Mean Corpuscular Volume 93.0 fl (80-100); Platelet Count Result 93 k/mm3 (150-375); Red Blood Count 3.56 M/mm3 (4.6-6.20); White Blood Count 8.3 K/mm3 (4.5-10.0)
[2025-05-01 05:05] LABS: Alanine Aminotransferase 12 U/L (6-50); Albumin Level 2.6 g/dL (3.5-5.1); Alkaline Phosphatase 54 U/L (38-126); Anion Gap 3 mmol/L (4-12); Aspartate Amino Transferase 192 U/L (17-59); Bilirubin,Total 0.8 mg/dL (0.2-1.3); Blood Urea Nitrogen 26 mg/dL (9-20); Calcium 8.2 mg/dL (8.4-10.2); Carbon Dioxide 24 mmol/L (22-30); Chloride 110 mmol/L (98-107); Estimated CRCL calculation 31 ml/min; Estimated Glomerular Filt Rate > 60; Glucose 90 mg/dL (65-110); Magnesium 1.6 mg/dL (1.6-2.3); Potassium 3.2 mmol/L (3.4-5.0); Sodium 137 mmol/L (137-145); Total Protein 5.2 g/dL (6.3-8.2)
[2025-05-01 05:30] LABS: Creatine Kinase 5946 U/L (55-170)
[2025-05-01 05:41] LABS: Band Neutrophils Percent 17 % (0-6); Lymphocytes Absolute Manual 0.08 K/mm3 (1.1-4.5); Lymphocytes Percent Manual 1.0 % (18-44); Neutrophils Absolute Manual 8.21 K/mm3 (1.3-6.7); Neutrophils Percent Manual 82 % (46-73); Total Cells Counted 100
[2025-05-01 05:42] LABS: Burr Cells Occasional; Schistocytes None Seen
[2025-05-01 08:28] LABS: Creatine Kinase 12568 U/L (55-170)
[2025-05-01] MEDS: CYANOCOBALAMIN 1,000 MCG TABLET 1000 MCG PO (08:41)
[2025-05-01] MEDS: MAGNESIUM OXIDE 200 MG TABLET PO (08:41)
[2025-05-01] MEDS: LUBIPROSTONE 8 MCG CAPSULE PO ×2 (08:42→20:08)
[2025-05-01] MEDS: GABAPENTIN 300 MG CAPSULE PO ×3 (08:42→16:18)
[2025-05-01] MEDS: CHOLECALCIFEROL (VITAMIN D3) 125 MCG (5,000 UNITS) TABLET PO (08:42)
[2025-05-01] MEDS: ASPIRIN 81 MG ENTERIC TABLET PO (08:42)
[2025-05-01] MEDS: DOXAZOSIN MESYLATE 2 MG TABLET PO (08:42)
[2025-05-01] MEDS: OPTI-GEN TAB 1 TABLET PO (08:42)
[2025-05-01] MEDS: CARBIDOPA/LEVODOPA 25/100 MG TABLET 2 TABLET PO ×4 (08:47→20:08)
[2025-05-01] MEDS: POTASSIUM CHLORIDE 20 MEQ PACKET (FOR LIQUID) 40 MEQ PO ×2 (08:47→16:20)
--- NOTE | 2025-05-01 11:15 | P.PNIM_ITS ---
Progress Note: A&P Assessment and Plan (1) HTN (hypertension): Code(s): I10 - Essential (primary) hypertension Status: Acute (2) CAD (coronary artery disease): Code(s): I25.10 - Atherosclerotic heart disease of [place] coronary artery without angina pectoris Status: Acute (3) Acute kidney injury: Code(s): N17.9 - Acute kidney failure, unspecified Status: Acute (4) Acute UTI: Code(s): N39.0 - Urinary tract infection, site not specified Status: Acute (5) Rhabdomyolysis: Qualifiers: Encounter type: initial encounter Rhabdomyolysis type: traumatic Qualified Code(s): T79.6XXA - Traumatic ischemia of muscle, initial encounter Code(s): M62.82 - Rhabdomyolysis Status: Acute (6) Fall: Qualifiers: Encounter type: initial encounter Qualified Code(s): W19.XXXA - Unspecified fall, initial encounter Code(s): W19.XXXA - Unspecified fall, initial encounter Status: Acute (7) Parkinsons disease: Qualifiers: Dyskinesia presence: with dyskinesia Fluctuating manifestations: unspecified whether manifestations fluctuate Qualified Code(s): G20.B1 - Parkinson's disease with dyskinesia, without mention of fluctuations Code(s): G20 - Parkinson's disease Status: Acute Plan 89-year-old male with a past medical history of essential hypertension, Parkinson's, BPH with history of retention, coronary artery disease, and benign positional vertigo who presented to the ER from home via EMS after fall with unknown down time. When EMS arrived to the patient's home he was alert oriented to person and self. . X-ray of the pelvis, chest x-ray, cervical spine CT and head CT demonstrated no acute process. The patient does report that he has been having dysuria for 2 or 3 weeks any evidently has a history of urinary tract infections. Was found to have elevated CPK, borderline hypotensive in the ER. 1. Rhabdomyolysis improving CK >5000, continue IVF patient had a ground level fall 2.YOLANDA: Improving Avoid Nephrotoxins Recheck BMP in a.m. Creatinine 1.17 today Supplement potassium 3.Fall: Echo shows grade 2 diastolic dysfunction Monitor hemodynamics PT/OT as tolerated 4. UTI: Monitor urine culture Continue with ceftriaxone 5. Right groin fullness: Obtain right groin ultrasound 6.HTN Blood pressure stable 7. History of Parkinson's disease: Continue with carbidopa levodopa 8.DVT prophylaxis:on Sq Lovenox 9. Code status: DNR 10. Disposition: Pending improvement Time Spent With Patient Time: 39 mins Subjective Date/time seen: 05/01/25 11:15 Interval history: No acute events overnight Complains of groin fullness/tenderness on right side Review of Systems Review of Systems: All systems reviewed & are unremarkable except as noted in HPI and below Exam Narrative: Weight 63.5 BMI 25.6 Const: Other: Elderly, well-nourished HENMT: Other: Edentulous, mucous membranes are moist Eyes: Other: No scleral icterus, pupils are equal and reactive, Neck: Other: no lymphadenopathy Resp: Other: Clear to auscultation bilaterally, Cardio: Other: 2/6 systolic murmur,, no lower extremity edema GI: Other: Soft, nontender, nondistended, positive bowel sounds Skin: Other: Scabbed abrasions to the right lower extremity (patient reports she due to use being scratched by the bed frame when he walks around the into the bed), blanching erythema to the right lateral knee, contusion to the right lateral ribcage Neuro: Other: Alert oriented to person, place, Extrem: Other: No edema Psych: Other: Appropriate mood and affect, pleasant and cooperative Objective Data Vital Signs Vital Signs: Vital Signs - 24 hr 04/30/25 11:51 04/30/25 12:00 04/30/25 16:00 Temperature 97.2 F L Pulse Rate 100 69 84 Respiratory Rate 20 Blood Pressure 104/65 Pulse Oximetry 71 L Oxygen Delivery 04/30/25 16:00 04/30/25 19:45 04/30/25 19:49 Temperature 98 F 98.1 F 98.1 F Pulse Rate 87 76 76 Respiratory Rate 20 20 20 Blood Pressure 134/73 105/50 L 105/50 L Pulse Oximetry 94 98 98 Oxygen Delivery 04/30/25 20:00 04/30/25 23:53 05/01/25 00:00 Temperature 98.4 F Pulse Rate 82 70 72 Respiratory Rate 18 Blood Pressure 95/49 L Pulse Oximetry 97 Oxygen Delivery 05/01/25 03:59 05/01/25 04:00 05/01/25 04:01 Temperature 97.8 F 97.8 F Pulse Rate 64 68 64 Respiratory Rate 18 18 Blood Pressure 119/50 L 119/50 L Pulse Oximetry 95 95 Oxygen Delivery 05/01/25 08:00 05/01/25 08:42 05/01/25 08:42 Temperature 97.7 F 97.7 F Pulse Rate 89 89 89 Respiratory Rate 16 16 16 Blood Pressure 131/79 131/79 Pulse Oximetry 97 97 97 Oxygen Delivery Room Air 05/01/25 08:42 05/01/25 09:28 05/01/25 09:50 Temperature Pulse Rate 67 70 Respiratory Rate Blood Pressure 140/62 Pulse Oximetry 95 Oxygen Delivery Room Air 05/01/25 09:55 05/01/25 09:55 05/01/25 10:36 Temperature Pulse Rate 70 70 Respiratory Rate Blood Pressure 131/63 129/52 L Pulse Oximetry Oxygen Delivery Room Air Intake/Output Intake/Output: Intake & Output 04/28/25 04/29/25 04/30/25 05/01/25 23:59 23:59 23:59 23:59 Intake Total 2099 1444.2 2140 Output Total 100 875 Balance 2000 569.2 2140 Meds/Results Medications: Active Medications Generic Name Dose Route Start Last Admin Trade Name Freq PRN Reason Stop Dose Admin Acetaminophen 650 mg 04/29/25 20:49 Acetaminophen 325 Mg Tablet PO Q4H PRN Mild Pain (1-3) or Fever Aspirin 81 mg 04/30/25 09:00 05/01/25 08:42 Aspirin 81 Mg Enteric Tablet PO 81 mg DAILY NADIR Administration Carbidopa/Levodopa 2 tablet 04/30/25 08:00 05/01/25 08:47 Carbidopa/Levodopa 25/100 Mg Tablet PO 2 tablet 0800,1200,1700,2100 NADIR Administration Cyanocobalamin 1,000 mcg 04/30/25 09:00 05/01/25 08:41 Cyanocobalamin 1,000 Mcg Tablet PO 1,000 mcg QAM NADIR Administration Doxazosin Mesylate 2 mg 04/30/25 09:00 05/01/25 08:42 Doxazosin Mesylate 2 Mg Tablet PO 2 mg DAILY NADIR Administration Enoxaparin Sodium 40 mg 05/01/25 09:00 05/01/25 08:48 Enoxaparin 40 Mg/0.4 Ml Syringe SUB-Q Not Given DAILY [facility] Gabapentin 300 mg 04/30/25 09:00 05/01/25 08:42 Gabapentin 300 Mg Capsule PO 300 mg TID NADIR Administration Ceftriaxone Sodium 1 gm/ 50 mls @ 100 mls/hr 04/30/25 21:00 04/30/25 20:41 Sodium Chloride IVPB Infused Q24H NADIR Infusion Lactated Ringer's 1,000 mls @ 125 mls/hr 04/30/25 07:00 05/01/25 10:15 Lr - Lactated Ringers Iv IV CONT 125 mls/hr .Q8H NADIR Administration Lubiprostone 8 mcg 04/30/25 09:00 05/01/25 08:42 Lubiprostone 8 Mcg Capsule PO 8 mcg Q12HR NADIR Administration Magnesium Oxide 200 mg 04/30/25 09:00 05/01/25 08:41 Magnesium Oxide 200 Mg Tablet PO 200 mg DAILY NADIR Administration Meclizine HCl 25 mg 04/30/25 01:35 Meclizine Hcl 25 Mg Tablet PO QID PRN Dizziness Morphine Sulfate 2 mg 04/29/25 20:49 Morphine Sulfate (*Crx) 2 Mg/Ml Inj IV PUSH Q2H PRN Pain Rated 7-10 Multivitamins/Minerals 1 tablet 04/30/25 09:00 05/01/25 08:42 Opti-Gen Tab PO 1 tablet QAM NADIR Administration Perflutren Lipid Microsphere 0 ml 04/30/25 13:14 Perflutren Lipid Microspheres 1.5 Ml Vial Diluted To 10 Ml Total Volume IV PUSH 05/03/25 13:14 ONCE PRN adequate visualization Protocol Potassium Chloride 40 meq 05/01/25 09:00 05/01/25 08:47 Potassium Chloride 20 Meq Packet (For Liquid) PO 05/01/25 17:01 40 meq BID NADIR Administration Vitamin D 125 mcg 04/30/25 09:00 05/01/25 08:42 Cholecalciferol (Vitamin D3) 125 Mcg (5,000 Units) Tablet PO 125 mcg DAILY NADIR Administration Radiology Results: ITS Impressions Head CT 04/29/25 20:07 IMPRESSION: 1. Stable moderate nonspecific cerebral white matter disease, which likely represents chronic small vessel ischemic disease. Cervical Spine CT 04/29/25 20:09 IMPRESSION: 1. No acute fracture. 2. Severe cervical spondylosis. Chest X-Ray 04/29/25 20:11 IMPRESSION: 1. Right lung findings likely rotation and/or soft tissue artifact, but consider PA and lateral films with deep inspiration for better evaluation. Labs Labs: Laboratory Results - last 24 hr 04/30/25 05/01/25 06:30 04:41 WBC 8.3 RBC 3.56 L Hgb 10.7 L Hct 33.1 L MCV 93.0 MCH 30.1 MCHC 32.3 RDW 12.8 Plt Count 93 L MPV 10.9 H Immature Gran % (Auto) Not Reportable Neut % (Auto) Not Reportable Lymph % (Auto) Not Reportable [place] % (Auto) Not Reportable Eos % (Auto) Not Reportable Baso % (Auto) Not Reportable Lymph # (Auto) Not Reportable [place] # (Auto) Not Reportable Eos # (Auto) Not Reportable Baso # (Auto) Not Reportable Abs Immat Gran (auto) Not Reportable Absolute Neuts (auto) Not Reportable Absolute Nucleated RBC Not Reportable Total Counted 100 Neutrophils % (Manual) 82 H Band Neutrophils % 17 H Lymphocytes % (Manual) 1.0 L Nucleated RBC % Not Reportable Abs Neuts (Manual) 8.21 H Abs Lymphs (Manual) 0.08 L Platelet Estimate Decreased % Immature Plt Fraction 3.4 [place] Cells Occasional Schistocytes None seen Sodium 137 Potassium 3.2 L Chloride 110 H Carbon Dioxide 24 Anion Gap 3 L BUN 26 H Creatinine 1.14 Estim Creat Clear Calc 31 Estimated GFR > 60 Glucose 90 Calcium 8.2 L Magnesium 1.6 Total Bilirubin 0.8 AST 192 H ALT 12 Alkaline Phosphatase 54 Total Creatine Kinase 73150 H 5946 H Total Protein 5.2 L Albumin 2.6 L Quality VTE Prophylaxis VTE prophylaxis: pharmacologic ordered
[2025-05-01] MEDS: cefTRIAXone 1 GM in SODIUM CHLORIDE 0.9% IV 50 ML 100 ML IVPB (20:08)
[2025-05-02] VITALS (8 sets, daily range): BP systolic 114–146; BP diastolic 63–91; PULSE 65–85; RESP 18; TEMP 36.6–37.5; O2SAT 95–100
[2025-05-02] MEDS: LACTATED RINGERS 1,000 ML 125 ML IV CONT (04:30)
[2025-05-02 05:16] LABS: Hematocrit 35.7 % (42.0-52.0); Hemoglobin 11.6 g/dL (14.0-18.0); Immature Granulocyte Percent A 0.7 % (0-0.5); Immature Platelet Fraction Pct 4.1 % (0.9-11.2); Lymphocytes Absolute Auto 0.64 K/mm3 (0.9-3.2); Mean Corpuscular HGB Conc 32.5 g/dl (32-36); Mean Corpuscular Hemoglobin 29.6 pg (26-34); Mean Corpuscular Volume 91.1 fl (80-100); Nucleated Red Blood Cells Absolute Auto 0.000 K/mm3 (0.0-0.012); Nucleated Red Blood Cells Perc 0.0 % (0.0-0.2); Platelet Count Result 98 k/mm3 (150-375); Red Blood Count 3.92 M/mm3 (4.6-6.20); White Blood Count 5.8 K/mm3 (4.5-10.0)
[2025-05-02 05:43] LABS: Anion Gap 2 mmol/L (4-12); Blood Urea Nitrogen 18 mg/dL (9-20); Calcium 8.5 mg/dL (8.4-10.2); Carbon Dioxide 28 mmol/L (22-30); Chloride 107 mmol/L (98-107); Estimated CRCL calculation 38 ml/min; Estimated Glomerular Filt Rate > 60; Glucose 92 mg/dL (65-110); Magnesium 1.6 mg/dL (1.6-2.3); Potassium 3.5 mmol/L (3.4-5.0); Sodium 137 mmol/L (137-145)
[2025-05-02 06:11] LABS: Creatine Kinase 3018 U/L (55-170)
[2025-05-02] MEDS: CARBIDOPA/LEVODOPA 25/100 MG TABLET 2 TABLET PO ×2 (09:02→12:11)
[2025-05-02] MEDS: ASPIRIN 81 MG ENTERIC TABLET PO (09:02)
[2025-05-02] MEDS: LUBIPROSTONE 8 MCG CAPSULE PO (09:02)
[2025-05-02] MEDS: GABAPENTIN 300 MG CAPSULE PO ×2 (09:02→12:11)
[2025-05-02] MEDS: CHOLECALCIFEROL (VITAMIN D3) 125 MCG (5,000 UNITS) TABLET PO (09:02)
[2025-05-02] MEDS: OPTI-GEN TAB 1 TABLET PO (09:02)
[2025-05-02] MEDS: MAGNESIUM OXIDE 200 MG TABLET PO (09:02)
[2025-05-02] MEDS: CYANOCOBALAMIN 1,000 MCG TABLET 1000 MCG PO (09:02)
[2025-05-02] MEDS: DOXAZOSIN MESYLATE 2 MG TABLET PO (09:03)
--- NOTE | 2025-05-02 13:13 | WPDCDIQUERY2 ---
CDI Query Clarification Request ER documented sepsis but diagnosis was mentioned by hospitalist. Please clarify if sepsis has been ruled in or ruled out. ER documentation: Clinical Impression: Rhabdomyolysis, Acute UTI, Fall, Sepsis 82-year-old male that presented to the ED for altered mental status and possible fall. On initial evaluation, patient was in no acute distress, febrile to 101.2 for, soft blood pressures at 96/40. Heart and lungs clear. No overt signs of trauma. CT head and C-spine were obtained and showed no acute process. Chest x-ray showed no acute process. Right hip x-ray was obtained due to pain in that area showed no fractures. He was mildly anemic at 12.5. He had an YOLANDA with creatinine 1.7 and BUN at 33. Lactic acidosis of 2.9. CK elevated at 5875. UA consistent with a UTI. Patient was given Rocephin. He was given 30 cc/kg bolus of normal saline. He will require admission for UTI and rhabdomyolysis and sepsis. Case was discussed with hospitalist, Dr. Pike will admit. Hospitalist documented: Assessment and Plan (1) Fall: Qualifiers: Encounter type: initial encounter Qualified Code(s): W19.XXXA - Unspecified fall, initial encounter Code(s): W19.XXXA - Unspecified fall, initial encounter Status: Acute (2) Rhabdomyolysis: Qualifiers: Encounter type: initial encounter Rhabdomyolysis type: traumatic Qualified Code(s): T79.6XXA - Traumatic ischemia of muscle, initial encounter Code(s): M62.82 - Rhabdomyolysis Status: Acute (3) Hypotension due to hypovolemia: Code(s): E86.1 - Hypovolemia Status: Acute (4) Acute kidney injury: Code(s): N17.9 - Acute kidney failure, unspecified Status: Acute (5) Acute UTI: Code(s): N39.0 - Urinary tract infection, site not specified Status: Acute (6) Acute metabolic encephalopathy: Code(s): G93.41 - Metabolic encephalopathy Status: Acute (7) BPH (benign prostatic hyperplasia): Qualifiers: Lower urinary tract symptom presence: symptoms present Lower urinary tract symptom detail: post-void dribbling Qualified Code(s): N40.1 - Benign prostatic hyperplasia with lower urinary tract symptoms; N39.43 - Post-void dribbling Code(s): N40.0 - Benign prostatic hyperplasia without lower urinary tract symptoms Status: Acute (8) Parkinsons disease: Qualifiers: Dyskinesia presence: with dyskinesia Fluctuating manifestations: unspecified whether manifestations fluctuate Qualified Code(s): G20.B1 - Parkinson's disease with dyskinesia, without mention of fluctuations Code(s): G20 - Parkinson's disease Status: Acute (9) Suspected pulmonary aspiration of food: Code(s): R09.89 - Other specified symptoms and signs involving the circulatory and respiratory systems Status: Acute Plan Rhabdomyolysis improving CK >8000, continue IVF patient had a ground level fall YOLANDA, resolving Cr 1.38 from 1.7, baseline normal Continue IVF Fall, Syncope ECHO, orthostatic vital signs PT/OT monitor HTN titrate home meds with clinical course BPH continue home meds CAD Continue home meds Parkinson's disease Continue home meds and if evaluate for orthostatic hypotension DVT prophylaxis on Sq Lovenox Lactic 2.9, 1.9 WBC: 9.3, 12.4, 8.3, 5.8 <Shreya Goodson RN - Last Filed: 05/02/25 13:20> Clarified Diagnosis Clarified Diagnosis: Sepsis ruled out <Shyam Pantoja MD - Last Filed: 05/02/25 13:33>
--- NOTE | 2025-05-02 14:14 | PM.DS ---
DS: Admitting Diagnosis Discharge Date 05/02/25 Admitting Diagnosis Fall DS: Discharge Diagnosis Discharge Diagnosis (1) Rhabdomyolysis: Qualifiers: Encounter type: initial encounter Rhabdomyolysis type: traumatic Qualified Code(s): T79.6XXA - Traumatic ischemia of muscle, initial encounter Code(s): M62.82 - Rhabdomyolysis Status: Acute DS: Summary Hospital Course Hospital Course: 89-year-old male with a past medical history of essential hypertension, Parkinson's, BPH with history of retention, coronary artery disease, and benign positional vertigo who presented to the ER from home via EMS after fall with unknown down time. ER eval X-ray of the pelvis, chest x-ray, cervical spine CT and head CT demonstrated no acute process. His UA with turbid appearance, 4+ bacteria greater than 100 wbc's and 3+ leukocyte esterase but [place] [address] and Cr 1.38, patient was started on IVF and addmitted to [facility]. Today Cr is 3018 and Cr 0.91. Orthostatic vital signs wnl. Patient was evaluated by PT/OT and Acute rehab was recommended Patient firmly denied any urinary symptoms, hwoever noted he had the symptom about 3 weeks ago but not anymore. Rocpehin discontinued US right groin unremarkable Continue other home meds. F/u with PCP in 3-5 days Time Spent with Patient Time attestation: Total time spent providing and/or coordinating discharge services: DS: Data Data Completed and Pending Labs on day of discharge: Labs from last 24 hours 05/02/25 04:58 WBC 5.8 RBC 3.92 L Hgb 11.6 L Hct 35.7 L MCV 91.1 MCH 29.6 MCHC 32.5 RDW 12.6 Plt Count 98 L MPV 11.0 H Immature Gran % (Auto) 0.7 H Neut % (Auto) 77.3 H Lymph % (Auto) 11.0 L [place] % (Auto) 8.8 H Eos % (Auto) 1.9 Baso % (Auto) 0.3 Lymph # (Auto) 0.64 L [place] # (Auto) 0.5 Eos # (Auto) 0.1 Baso # (Auto) 0.0 Abs Immat Gran (auto) 0.04 H Absolute Neuts (auto) 4.5 Absolute Nucleated RBC 0.000 Nucleated RBC % 0.0 % Immature Plt Fraction 4.1 Sodium 137 Potassium 3.5 Chloride 107 Carbon Dioxide 28 Anion Gap 2 L BUN 18 Creatinine 0.91 Estim Creat Clear Calc 38 Estimated GFR > 60 Glucose 92 Calcium 8.5 Magnesium 1.6 Total Creatine Kinase 3018 H Preliminary micro results at discharge 04/29/25 19:26 Blood Culture - Preliminary Blood 04/29/25 20:23 Blood Culture - Preliminary Blood Discharge Plan Discharge Attending physician on discharge: Shyam Pantoja Discharging Clinician: Shyam Pantoja Anticipated Discharge Date/Time: 05/02/25 14:11 Patient Disposition: Inpatient Rehab Facility Activity: as tolerated Diet: as tolerated and heart healthy Patient Language: Ugandan Stand Alone Forms: General Discharge Information Follow-up/Referrals: Live Leroy MD [Primary Care Provider, Internal Medicine] Referral Note: F/u with PCP in 3-5 days Discharge Medications: Continued aspirin 81 mg tablet,delayed release (DR/EC) 81 mg PO 1XD Rx Instructions: 81 mg PO daily in the am; Ocuvite Eye Plus Multi 200-15-150 mcg tablet 1 tablet PO DAILY Rx Instructions: administer with a meal and a large glass of water carbidopa-levodopa [Sinemet] 25-100 mg tablet 2 tablet PO QID Qty: 240 8RF metoprolol succinate 25 mg tablet extended release 24 hr 25 mg PO HS magnesium 250 mg Tablet 250 mg PO DAILY cyanocobalamin (vitamin B-12) [Vitamin B-12] 1,000 mcg Tablet 1,000 mcg PO QAM Qty: 30 0RF meclizine 25 mg tablet 25 mg PO QID PRN (Reason: dizziness) cholecalciferol (vitamin D3) 125 mcg (5,000 unit) capsule 125 mcg PO DAILY Qty: 90 3RF fenofibric acid (choline) 135 mg capsule,delayed release(DR/EC) See Rx Instructions .ROUTE .COMPLEX Qty: 90 2RF Dose Instruction: Take 1 capsule by mouth once daily at bedtime Rx Instructions: Take 1 capsule by mouth once daily at bedtime doxazosin 2 mg tablet See Rx Instructions .ROUTE .COMPLEX Qty: 90 2RF Dose Instruction: Take 1 tablet by mouth once daily Rx Instructions: Take 1 tablet by mouth once daily gabapentin 300 mg capsule 300 mg PO TID Qty: 270 1RF atorvastatin 10 mg tablet See Rx Instructions .ROUTE .COMPLEX Qty: 45 2RF Dose Instruction: TAKE 1 TABLET BY MOUTH EVERY OTHER DAY Rx Instructions: TAKE 1 TABLET BY MOUTH EVERY OTHER DAY lubiprostone 8 mcg capsule See Rx Instructions .ROUTE .COMPLEX Qty: 60 3RF Dose Instruction: Take 1 capsule by mouth twice daily Rx Instructions: Take 1 capsule by mouth twice daily Date of admission: 04/29/25 20:51 Primary Care Provider: Live Leroy Admitting Provider: Bernice Pike Attending physician on admission: Bernice Pike Condition: Stable
== END 2025-05-02 17:10 | DRG 564 ==
LOC: ANHED 21:19 → ANH2MED 21:26
PROVIDERS: Internal Medicine; Admitting Provider Internal Medicine; Emergency Provider Student in an Organized Health Care Education/Training Program; PCP Emergency Medicine; Visit Provider Internal Medicine
DX: T79.6XXA Traumatic ischemia of muscle, initial encounter (principal); G93.41 Metabolic encephalopathy; N17.9 Acute kidney failure, unspecified; N39.0 Urinary tract infection, site not specified; I25.10 Atherosclerotic heart disease of native coronary artery without angina pectoris; I10 Essential (primary) hypertension; I35.0 Nonrheumatic aortic (valve) stenosis; I95.9 Hypotension, unspecified; E86.1 Hypovolemia; D69.6 Thrombocytopenia, unspecified; E78.5 Hyperlipidemia, unspecified; E55.9 Vitamin D deficiency, unspecified; K21.9 Gastro-esophageal reflux disease without esophagitis; N40.1 Benign prostatic hyperplasia with lower urinary tract symptoms; R35.1 Nocturia; R33.8 Other retention of urine; G20.A1 Parkinson's disease without dyskinesia, without mention of fluctuations; W19.XXXA Unspecified fall, initial encounter; Z95.1 Presence of aortocoronary bypass graft; Z79.82 Long term (current) use of aspirin
CPT/HCPCS: 36415; 70450; 71045; 72125; 73502; 76882; 80048; 80053; 81001; 82550; 83605; 83735; 84100; 85025; 85027; 85055; 85610; 85730; 86140; 87040; 87086; 92610; 93005; 93306; 97161; 97166; 99285; A9270; J0696; J7030; J7120

== ENCOUNTER 2025-05-16 07:35 | Outpatient (CLI) | payer MEDICARE, BC, SELFPAY ==
--- OUTSIDE RECORDS SUMMARY | 2025-05-16 07:39 | XMS_ITS | Clinical Summary ---
Author Organization [facility] Address [address] [place] [address] Phone Care Team Providers Care Deliverer Outside Name Role Phone Unavailable Primary Care Provider [...] Encounters Date Type Department Care Team Description 04/30/2025 External Device Data STL ABSTRACTION Provider, Abstract 04/30/2025 External Device Data STL ABSTRACTION Provider, Abstract 04/03/2025 External Device Data [facility] ABSTRACTION Provider, [...] 2025 Insurance MEDICARE PART A AND B [facility]
--- OUTSIDE RECORDS SUMMARY | 2025-05-16 07:39 | XMS_ITS | Patient Health Record ---
Author Organization [facility] Address [address] [place], [place] [id number] Care Team Providers Care Professor Of Food Biochemistry Name Role Phone FREDDY DUBOIS Unavailable [phone] Diogenes Heath Unavailable Unavailable Allergies No Known Allergies Reason For Referral No Information Plan Of Treatment No Information Insurance Providers Payer Name Payer Address Payer Phone Subscriber Number Group Number Insured Name Patient Relationship to Insured Coverage Start Date Coverage End Date Medicare Part B [place] [address] [place] [address] [id number] ALISE MARTÍNEZ Self - patient is the insured [facility] ATTN CLAIMS [address] [place] [address] [id number] ALISE MARTÍNEZ Self - patient is the insured Medical (General) History Medical History History ICD Code kidney stones neuropathy stroke skin cancer Leg/Feet cramps Back Trouble Radiation therapy Parkinson's disease Surgical History Surgery Date(Month/Year) Gall Bladder Bypass surgery
--- OUTSIDE RECORDS SUMMARY | 2025-05-16 07:40 | XMS_ITS | Clinical Summary ---
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
[2025-05-16 08:26] LABS: Alanine Aminotransferase 8 U/L (6-50); Albumin Level 3.5 g/dL (3.5-5.1); Alkaline Phosphatase 87 U/L (38-126); Anion Gap 3 mmol/L (4-12); Aspartate Amino Transferase 35 U/L (17-59); Bilirubin,Total 0.8 mg/dL (0.2-1.3); Blood Urea Nitrogen 19 mg/dL (9-20); Calcium 9.0 mg/dL (8.4-10.2); Carbon Dioxide 29 mmol/L (22-30); Chloride 105 mmol/L (98-107); Cholesterol 91 mg/dL (0-200); Estimated Glomerular Filt Rate > 60; Glucose 93 mg/dL (65-110); HDL Direct 37 mg/dL; Potassium 4.2 mmol/L (3.4-5.0); Sodium 137 mmol/L (137-145); Total Protein 6.7 g/dL (6.3-8.2); Triglycerides 61 mg/dL (<150)
== END 2025-05-16 07:36 | disposition home or self-care (01) ==
LOC: ANHLAB 07:36
PROVIDERS: PCP Emergency Medicine; Visit Provider Emergency Medicine
DX: E55.9 Vitamin D deficiency, unspecified (principal); E78.5 Hyperlipidemia, unspecified
CPT/HCPCS: 36415; 80053; 80061; 82306

== ENCOUNTER 2025-07-26 09:26 | Outpatient (CLI) | payer MEDICARE, BC, SELFPAY | END 2025-07-26 09:27 | disposition home or self-care (01) | PROVIDERS: PCP Emergency Medicine; Visit Provider Surgery | DX: Z01.818 Encounter for other preprocedural examination (principal); K40.90 Unilateral inguinal hernia, without obstruction or gangrene, not specified as recurrent | CPT/HCPCS: 36415; 86850; 86900; 86901 ==

== ENCOUNTER 2025-07-30 00:33 | Day surgery (SDC) | payer MEDICARE, BC, SELFPAY ==
[2025-07-25 09:56] VITALS: BMI 27.5
--- NOTE | 2025-07-25 10:08 | PC.NURSE ---
[facility] has started construction of its new state of the art ER which will open Spring 2026. With this, we anticipate parking may be a challenge for some our surgical patients and families. Parking spaces are limited but are available for all Surgical, obstetrics, and ER patients sharing this lot. If you arrive and find you are having a hard time finding a parking space, please note that we understand the challenges, please drive around the hospital and park near Hospital Entrance 1. When you enter this entrance, you can ask a volunteer to direct or take you back to the surgical waiting area to check in. We appreciate everyone?s understanding of these expected challenges while we build for your future. Report to the Outpatient Waiting Room, entrance under the green pavilion located off [address], at time __1130am on date __07/30/25 . Planned Procedure Time: __1:30pm .? Time changes happen often and if your time is changed the preop area will call you the afternoon before. - You and your visitor will be asked to self-screen and do not enter if you have any COVID symptoms. Please call surgeon if you need to reschedule. - A mask is optional within the hospital at this time. Patients may have clear liquids (water, carbonated beverages, clear teas, apple juice) until 3 hours prior to surgery with a maximum of 20 ounces. - No food from midnight until time of surgery and no smoking, or chewing tobacco (or any form of nicotine). No chewing gum, candy or mints. ( 10:30am) Take only the following medications with a SIP of water on the morning of surgery: Carbidopa and Gabapentin DO NOT STOP ANY OF YOUR OTHER PRESCRIPTION MEDICATIONS PRIOR TO SURGERY EXCEPT THE FOLLOWING Hold all vitamins and supplements for 3 days per anesthesiologist. Medications to discontinue per physician HOLDING ASPIRIN per Daughter for PREOP Date to take last dose 07/15/[address] Holguin is ok w Aspirin in preop setting. Please no make-up, nail ugandan, hairspray, perfume, deodorant, or body powder the day of surgery.? No jewelry (including any body piercings) or valuables the day of surgery, leave them at home.? Please take a shower or bath the night before, or the morning of, surgery with an antibacterial soap.? Wear comfortable, loose fitting clothing.? - Jewelry must be removed prior to entering the operating room.? Rings and piercings that are not removed may be cut off. - The hospital will not accept responsibility for valuables.? - Please leave all valuables, including medications, at home the day of surgery. If you are going home after surgery, a licensed petrol tanker driver must drive you home.? - NO public transportation without another adult if you receive anesthesia. - We recommend that an adult stay with you for 24 hours following discharge. - We also recommend that you do not drive, make important decision, drink alcoholic beverages, or take any drugs that were not prescribed by your health care provider for at least 24 hours after your discharge time. Follow any additional instructions given to you from your surgeon. Telephone instructions given to __Johnna Chinchilla daughter and asked if any additional questions and then verbalized understanding. Patient advised to call surgeon office or pre surgery nurse liaison [phone] if any additional questions.
[2025-07-30] VITALS (9 sets, daily range): BP systolic 118–157; BP diastolic 57–70; PULSE 60–83; RESP 12–18; TEMP 36.5–36.8; O2SAT 92–99
--- OUTSIDE RECORDS SUMMARY | 2025-07-30 00:36 | XMS_ITS | Patient Health Record ---
Author Organization [facility] Address [address] [place], [place] [id number] Care Team Providers Care Blueprint Developer Name Role Phone FREDDY DUBOIS Unavailable [phone] Diogenes Heath Unavailable Unavailable Allergies No Known Allergies Reason For Referral No Information Plan Of Treatment No Information Insurance Providers Payer Name Payer Address Payer Phone Subscriber Number Group Number Insured Name Patient Relationship to Insured Coverage Start Date Coverage End Date Medicare Part B [place] [address] [place] [address] [id number] ALISE MARTÍNEZ Self - patient is the insured [facility] ([facility]) ATTN CLAIMS [address] [place] [address] [id number] ALISE MARTÍNEZ Self - patient is the insured Medical (General) History Medical History History ICD Code kidney stones neuropathy stroke skin cancer Leg/Feet cramps Back Trouble Radiation therapy Parkinson's disease Surgical History Surgery Date(Month/Year) Gall Bladder Bypass surgery
--- OUTSIDE RECORDS SUMMARY | 2025-07-30 00:36 | XMS_ITS | Clinical Summary ---
Author Organization [facility] Address [address] [place] [address] Phone Care Team Providers Care Assistant Vice President Name Role Phone Unavailable Primary Care Provider [...] Encounters Date Type Department Care Team Description 07/16/2025 External Device Data STL ABSTRACTION Provider, Abstract 07/16/2025 External Device Data STL ABSTRACTION Provider, Abstract 06/12/2025 External Device Data STL ABSTRACTION Provider, Abstract 06/12/2025 External Device Data STL ABSTRACTION Provider, Abstract 06/05/2025 External Device Data STL ABSTRACTION Provider, Abstract 06/04/2025 External Device Data STL ABSTRACTION Provider, Abstract [...] 2025 Insurance MEDICARE PART A AND B [facility]
--- OUTSIDE RECORDS SUMMARY | 2025-07-30 00:36 | XMS_ITS | Clinical Summary ---
Author Organization [facility] [address] Address [address] [place] [address] Care Team Providers Care Platemaker Name Role Phone Live Leroy MD Primary Care Provide r Allergies No known active allergies Medications fenofibrate choline (TRILIPIX) 135 mg capsule take 1 by Oral route every other day in the evening 0 2 Active doxazosin (CARDURA) 2 mg tablet take 1 tablet (2MG) by oral route every day in the evening 0 2 Active aspirin (ASPIRIN LOW DOSE) 81 mg tablet take 1 Tablet (81MG) by oral route every day 0 2 Active vit A,C and F-jocrue-xiqej als (VISION FORMULA, WITH LUTEIN,) 1,000 unit-200 mg-60 unit-2 mg tablet 0 0 4 Active atorvastatin (LIPITOR) 10 mg tablet take 1 tablet by oral route every other day 0 4 Active cyanocobalamin -salcaprozat sod 1,000-100 mcg-mg tablet Take by mouth Active carbidopa-levo dopa (SINEMET) 25-100 mg per tablet 2 tablets four times daily Active magnesium gluconate 200 mg tablet 1.25 tablets (250 mg total) 3 Active cholecalcifero l 400 unit capsule 5,000 Units Active cyanocobalamin (Vitamin B-12) 1,000 mcg tabletIndicati ons:Prevention of Vitamin B12 Deficiency Take 1 tablet (1,000 mcg total) by mouth daily Active gabapentin (NEURONTIN) 300 mg capsule Take 1 capsule (300 mg total) by mouth 5 Active metoprolol XL (TOPROL-XL) 25 mg extended release tablet Take 1 tablet by mouth once daily 90 tablet 5 Active metoprolol XL (TOPROL-XL) 25 mg extended release tablet Take 1 tablet by mouth once daily 90 tablet 2 5 07/29/20 25 Discontinued Active Problems Problem Noted Date Diagnosed Date Chest pain 05/01/2020 Nonrheumatic aortic valve stenosis 05/01/2020 Coronary artery disease invo lving [place] coronary artery of [place] heart without angina pectoris 06/14/2017 Hx of CABG 06/14/2017 Encounters Date Type Department Care Team Description 05/28/2025 9:45 AM CDT Office Visit [facility] Cardiology [address] [place] [address] Live Shaw MD Coronary artery disease involving [place] coronary artery of [place] heart without angina pectoris (Primary Dx); Hx of CABG from Last 3 Months Surgical History Surgery [...] on file 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 Gender Identity Not on file Sexual Orientation Not on file Last Filed Vital Signs Vital Sign Reading Time Taken Comments Blood Pressure 118/70 05/28/2025 9:44 AM CDT Pulse 77 05/28/2025 9:44 AM CDT Temperature 36.5 C (97.7 F) 05/21/2020 8:17 AM CDT Respiratory Rate 12 06/14/2017 8:09 AM CDT Oxygen Saturation 98% 05/28/2025 9:44 AM CDT Inhaled Oxygen Concentration - - Weight 62.2 kg (137 lb 3.2 oz) 05/28/2025 9:44 A M CDT Height 157.5 cm (5' 2) 05/28/2025 9:44 AM CDT Body Mass Index 25.09 05/28/2025 9:44 AM CDT Plan of Treatment Health Maintenance Due Date Last Done Comments Depression Screening 1935 Fall Risk Assessment 1935 DTaP/Tdap/Td Vaccine (1 - Tdap) 1948 Hepatitis B Screening 1955 Pneumococcal vaccine 65+ (1 of 1 - PCV) 1987 Zoster Vaccine (1 of 2) 1987 Well Visit 65+ 2002 Covid-19 Vaccine (2024-2 6 season) 2025 06/29/2023, 06/01/2022, 01/15/2022, Additional history exists Influenza Vaccine (#1) 2025 , 06/29/2023, 05/12/2021, Additional [place] [address] MEDICARE [facility] MEDICARE [facility] OOS Care Teams Platemaker Relationship Specialty Start Date End Date Live Leroy MD [address] [place], [place] [id number] PCP - General 05/18/12
[2025-07-30] MEDS: LACTATED RINGERS 1,000 ML 30 ML IV CONT ×2 (13:15→16:22)
[2025-07-30] MEDS: ACETAMINOPHEN 500 MG TABLET 1000 MG PO (13:20)
[2025-07-30] MEDS: KETOROLAC 15 MG/ML VIAL (*BKC) IV PUSH (13:20)
[2025-07-30 13:23] LABS: Hematocrit 39.1 % (42.0-52.0); Hemoglobin 12.6 g/dL (14.0-18.0); Immature Granulocyte Percent A 0.5 % (0-0.5); Lymphocytes Absolute Auto 1.11 K/mm3 (0.9-3.2); Mean Corpuscular HGB Conc 32.2 g/dl (32-36); Mean Corpuscular Hemoglobin 28.9 pg (26-34); Mean Corpuscular Volume 89.7 fl (80-100); Nucleated Red Blood Cells Absolute Auto 0.000 K/mm3 (0.0-0.012); Nucleated Red Blood Cells Perc 0.0 % (0.0-0.2); Platelet Count Result 144 k/mm3 (150-375); Red Blood Count 4.36 M/mm3 (4.6-6.20); White Blood Count 5.9 K/mm3 (4.5-10.0)
--- NOTE | 2025-07-30 14:27 | WPDHPUPDATE1 ---
History and Physical Update Update Date/Time: 07/30/25 14:27 History and Physical has been reviewed, including an updated exam of the patient. There are NO changes in the patient's condition. Risks, benefits, and alternatives have been discussed and questions answered. Patient agrees to proceed with procedure.
--- NOTE | 2025-07-30 14:50 | WPDANESEPP ---
Anes - Eval Pre Procedure Procedure: Operation Date: 07/30/25 13:30 Proposed Procedures p Laparoscopic Right Inguinal Hernia Repair with Mesh, Amy Assisted - Christian Holguin DO Date/Time: 07/30/25 14:50 Pre Op Diagnosis: Right Inguinal Hernia Patient Data Age: 89 Gender: M Height: 1.52 m Weight: 61.4 kg Last Vital Signs Temp 36.5 C 07/30/25 13:30 Pulse 60 07/30/25 13:30 Resp 18 07/30/25 13:30 BP 134/65 07/30/25 13:30 Pulse Ox 97 07/30/25 13:30 O2 Del Method Room Air 07/30/25 13:30 Allergies Allergy/AdvReac Type Severity Reaction Status Date / Time No Known Allergies Allergy Verified 07/30/25 13:27 Home Medications ?Medication ?Instructions ?Recorded ?Confirmed ?Type magnesium 250 mg tablet 250 mg PO DAILY 01/20/22 07/30/25 History cyanocobalamin (vitamin B-12) 1,000 mcg PO QAM #30 tabs 05/15/22 07/30/25 Rx 1,000 mcg tablet (Vitamin B-12) lubiprostone 8 mcg capsule 8 mcg PO BID 05/02/25 07/30/25 History atorvastatin 10 mg tablet 10 mg PO EVERY OTHER DAY 30 days 05/10/25 07/30/25 Rx #30 tabs cholecalciferol (vitamin D3) 125 125 mcg PO DAILY #90 caps 05/10/25 07/30/25 Rx mcg (5,000 unit) capsule doxazosin 2 mg tablet 2 mg PO DAILY 30 days #30 tabs 05/10/25 07/30/25 Rx gabapentin 300 mg capsule 300 mg PO TID 30 days #90 caps 05/10/25 07/30/25 Rx metoprolol succinate 25 mg 25 mg PO HS 30 days #30 tabs 05/10/25 07/30/25 Rx tablet,extended release 24 hr exexycju-sag-EX 200 mcg-vit K 15 1 tablet PO DAILY 30 days #30 tabs 05/10/25 07/30/25 Rx mcg-lycope 150 pdi-jvdebh-pjkl tablet (Ocuvite Eye Plus Multi) carbidopa 25 mg-levodopa 100 mg 2 tablet PO QID #240 tabs 06/11/25 07/30/25 Rx tablet (Sinemet) fenofibrate 160 mg tablet 160 mg PO HS 90 days #90 tabs 06/14/25 07/30/25 Rx aspirin 81 mg chewable tablet 81 mg PO DAILY 07/25/25 07/28/25 History Held on 07/25/25. Instructions: Patient Condition Laboratory Tests 07/30/25 13:07 WBC 5.9 K/mm3 (4.5-10.0) RBC 4.36 L M/mm3 (4.6-6.20) Hgb 12.6 L g/dL (14.0-18.0) Hct 39.1 L % (42.0-52.0) MCV 89.7 fl (80-100) MCH 28.9 pg (26-34) MCHC 32.2 g/dl (32-36) RDW 13.4 % (11.5-14.5) Plt Count 144 L k/mm3 (150-375) MPV 10.0 fl (7.4-10.4) Immature Gran % (Auto) 0.5 % (0-0.5) Neut % (Auto) 69.9 % (45.5-73.1) Lymph % (Auto) 18.9 % (18.3-44.2) Rains % (Auto) 9.2 H % (2.6-8.5) Eos % (Auto) 1.0 % (0-4.4) Baso % (Auto) 0.5 % (0.2-1.2) Lymph # (Auto) 1.11 K/mm3 (0.9-3.2) Rains # (Auto) 0.5 K/mm3 (0.1-0.6) Eos # (Auto) 0.1 K/mm3 (0-0.3) Baso # (Auto) 0.0 K/mm3 (0.0-0.1) Abs Immat Gran (auto) 0.03 K/mm3 (0.00-0.031) Absolute Neuts (auto) 4.1 K/mm3 (1.3-6.7) Absolute Nucleated RBC 0.000 K/mm3 (0.0-0.012) Nucleated RBC % 0.0 % (0.0-0.2) Patient hx anesthesia problems: none Family hx anesthesia problems: none Results Review: All pre-operative results and documents have been reviewed as part of the pre-operative evaluation. [facility] Past Medical History Medical History History of malignant carcinoid tumor of rectum Aortic stenosis Diastolic dysfunction Grade 1 diastolic dysfunction with EF of 65-70%, mild aortic stenosis, mild aortic regurgitation Sciatica Osteopenia of lumbar spine Thrombocytopenia Chronic Parkinsons disease Upper GI bleed Atherosclerotic heart disease of [place] coronary artery with angina pectoris Benign prostatic hyperplasia with nocturia Complete tear of right rotator cuff With chronic right shoulder pain Gastro-esophageal reflux disease without esophagitis Sinusitis chronic, frontal Tear of biceps tendon Vitamin D deficiency Hyperlipidemia Hypertension Surgical History Surgical History Hx of cholecystectomy H/O vasectomy 1979 Status post cataract extraction of both eyes with insertion of intraocular lens History of colonoscopy with polypectomy S/P CABG x 5 Family History Family History Mother Family history of malignant neoplasm Sibling Family history of congenital heart disease Family history of heart disease in male family member before age 55 Father Family history of chronic obstructive pulmonary disease Family history of emphysema Other Diabetes mellitus Family history of cardiovascular disease Hypertension Social History Social History Social History: The patient lives at home with his of 69 years. They raised 3 daughters and 3 sons. He retired from the [employer] 2000. He is a lifelong nonsmoker and does not drink alcohol. He is post ambulate with a cane. Code status: DNR/DNI (per living will) Healthcare power of managing attorney: Devante (son) Smoking status: Never smoker Second hand tobacco smoke exposure: No Alcohol intake: never Substance use: never Substance use type: does not use Lack of Transportation: No Lack of Food: Never True Current Housing: I Have Housing Concerned About Future Housing: No Difficulty Paying Gas/Electric Bills: No Difficulty Paying for Meds: No Currently Unemployed: No Education: High School Diploma/GED Difficulty w/ Childcare or Family Care: No Living arrangements: with family Additional living arrangements comments: Occupation/Education: retired Gender identity (if verbalized by the patient): Male Sexual Orientation (if Verbalized by the Patient): Straight or Heterosexual Spiritual care concerns: No Agree to blood products: Yes Exam Day of Procedure 07/30/25 14:50 Patient weight: normal
[2025-07-30] MEDS: ceFAZolin 2 GM in SODIUM CHLORIDE 0.9% IV 50 ML 100 ML IVPB (15:06)
[2025-07-30] MEDS: BUPIVACAINE/EPINEPHRINE 0.5% 50 ML VIAL 30 ML INFILTRATE (15:44)
--- NOTE | 2025-07-30 16:18 | P.OP_ITS ---
Procedure Note - Detailed Date of Procedure 07/30/25 Pre-op Diagnosis Right Inguinal Hernia Post-op Diagnosis Same (Indirect RIH) Procedure Performed Laparoscopic right inguinal hernia repair with mesh, da Elena assisted Surgeon Christian Holguin, DO Anesthesia General and Local (0.5% bupivacaine with epinephrine) Indications This is an 89-year-old man who presented with a right groin bulge and some discomfort that he 1st noticed about 2 months ago. He denied any significant pain with this. His bowels were moving normally. He was found to have a reducible right inguinal hernia on physical exam. Discussions were made with the patient about treatment options and decision was made to proceed with roboti c assisted laparoscopic right inguinal hernia repair with mesh. Findings Robotic assisted laparoscopic right inguinal hernia repair with mesh was perfo rmed. The patient was found to have a moderate-sized indirect right inguinal hernia. There was no evidence of a left inguinal hernia. A robotic transabdominal preperitoneal approach was utilized for repair. Once a wide enough preperitoneal pocket was created and the hernia sac was reduced, I then placed a large right 3DMax mid mesh overlying the entire right myopectineal orifice. No specimens were obtained for pathology. Description of Procedure Procedure as well as risks, benefits, and alternatives were discussed with the patient. Written consent was obtained and placed in chart prior to procedure. Patient was brought back to surgical suite. He was placed supine on operating table. Time-out was done to confirm patient and procedure. He was then intubated by Anesthesia Department. His abdomen was prepped and draped in sterile fashion using chlorhexidine prep. 0.5% bupivacaine with epinephrine was infiltrated at each location for incision. An 8 mm incision was made in the left lateral abdomen, and a 5 mm Optiview trocar was advanced through the abdominal layers under direct visualization. Once inside the abdominal cavity, carbon dioxide insufflation was used to create a pneumoperitoneum. A camera was inserted and the abdominal cavity was inspected. The patient was placed in slight Trendelenburg position. An 8 millimeter incision was made on the right lateral abdomen and an 8 millimeter trocar was inserted under direct visualization. Another 8 millimeter incision was made just superior to the umbilicus and an 8 millimeter trocar was inserted under direct visualization. The 5 mm port was then removed and this was replaced with another 8 mm robotic port. The robotic arms were brought up to the patient's bedside and secured to the ports. The camera and instruments were inserted. I then moved over to the robotic console and took control of the camera and instruments. After careful inspection of the abdominal cavity, I began scoring the peritoneum along the right lower quadrant using scissors with electrocautery. The preperitoneal plane was entered and this was carefully dissected caudally along the inferior epigastric vessels. Careful dissection with scissors with electrocautery and blunt dissection was used to continue this dissection. I dissected far enough laterally to allow for mesh placement, and also dissected medially to identify the pubic arch and Travis's ligament. The hernia sac was identified and carefully dissected posteriorly. The cord contents were also identified and the peritoneum was carefully dissected far enough posteriorly to allow for mesh placement. Once an adequate pocket was created, I then placed the mesh within the preperitoneal pocket and carefully unfolded it. The mesh was centered on the hernia defect with adequate overlap circumferentially. The inferior edge of the mesh was inspected to ensure that it was far enough away from the peritoneal edge. The mesh appeared in proper position overlying the entire myopectineal orifice. The mesh was secured using 3-0 Vicryl simple interrupted sutures in Travis's ligament, the superior medial edge, and superior lateral edge of the mesh. The peritoneum was then closed over the mesh using a 3-0 V-lock running absorbable suture. The robotic instruments were removed. The robotic arms were disengaged from the ports and moved away from the bedside. The patient was flattened out in bed, the ports were removed under direct visualization, and the pneumoperitoneum was released. The skin of the incisions was approximated using 4-0 Monocryl subcuticular suture, and Exofin glue was applied on top. The patient was awakened from anesthesia, extubated, and transferred to recovery. Implants Large right 3DMax mid mesh Estimated Blood Loss 5 Complications No immediate complications Condition Stable Disposition Same day [facility] Billing Surgery - Charge Forward: Surgery Billing
== END 2025-07-30 19:20 | disposition home or self-care (01) ==
PROVIDERS: Anesthesiology; PCP Emergency Medicine; Visit Provider Surgery
PROC: 8E0Y4CZ Robotic Assisted Procedure of Lower Extremity, Percutaneous Endoscopic Approach (ICD-10-PCS; CPT 49650; principal; 2025-07-30 13:30)
DX: K40.90 Unilateral inguinal hernia, without obstruction or gangrene, not specified as recurrent (principal); D69.6 Thrombocytopenia, unspecified; I10 Essential (primary) hypertension; G20.B1 Parkinson's disease with dyskinesia, without mention of fluctuations; I35.0 Nonrheumatic aortic (valve) stenosis
CPT/HCPCS: 49650; S2900; 36415; 85025; J0690; A9270; C1781; J1885; J2003; J2405; J2704; J3010; J7120